=== PATIENT | male | born 1975 ===

== ENCOUNTER 2018-03-25 16:35 | Inpatient (IN) | payer MEDICAID ==
[2018-03-25] MEDS ORDERED: Sodium Chloride 0.9% 1,000 ML IV STA (17:36)
[2018-03-25] MEDS ORDERED: Morphine 4 MG/ML VIAL IVP STA (17:42)
[2018-03-25] MEDS ORDERED: Morphine 4 MG/ML VIAL ONE (18:12)
--- NOTE | 2018-03-25 18:13 | ED PDOC ---
HPI: Abdomen Time Seen by Provider: 03/25/18 16:47 Chief Complaint (Nursing): Abdominal Pain Chief Complaint (Provider): Abdominal Pain History Per: Patient History/Exam Limitations: no limitations Onset/Duration Of Symptoms: Days (10x) Current Symptoms Are (Timing): Still Present Severity: Moderate Location Of Pain/Discomfort: Other (right side and lower abdomen) Associated Symptoms: Vomiting, Diarrhea Additional Complaint(s): 42 year old male with a history of heroin abuse and hypothyroidism, recently out of assisted presents to the ED for an evaluation of right sided and lower abdominal pain that started 10x days ago. Patient reports having associated symptoms of intermittent vomiting and diarrhea. Patient was see at [facility] ED at onset of symptoms 10x days ago, where he was diagnosed with gallbladder disease and discharged 10x days ago. Patient's symptoms worsened, so he went to [facility] ED early this morning (approximately 14x hours prior to arrival), and was diagnosed with pancreatitis and admitted for treatment. Patient was unhappy with his treatment and left AMA 45x minutes prior to arrival to [facility] ED. Patient was concerned because he was not allowed to eat or drink, his pain was not adequately managed, and he was not receiving updates on treatment plan. PMD: None. Past Medical History Reviewed: Historical Data, Nursing Documentation, Vital Signs Vital Signs: Last Vital Signs Temp 96.8 F L 03/25/18 16:41 Pulse 67 03/25/18 16:41 Resp 18 03/25/18 16:41 BP 131/76 03/25/18 16:41 Pulse Ox 100 03/25/18 16:41 - Medical History PMH: Anxiety, Depression, Gall Bladder Disease, Hypothyroidism, Pancreatitis Denies: Hepatitis (treated and cured of hepatitis C in assisted) - Surgical History Surgical History: Hernia Repair (left inguinal herna surgery) - Family History Family History: States: Unknown Family Hx - Social History Current smoker - smoking cessation education provided: Yes Alcohol: None Drugs: Cocaine (occasionally) - Immunization History Hx Tetanus Toxoid Vaccination: No Hx Influenza Vaccination: No Hx Pneumococcal Vaccination: No - Home Medications Home Medications: Ambulatory Orders Medication Instructions Recorded Levothyroxine [Synthroid] 100 mcg PO DAILY #14 tab 03/16/18 - Allergies Allergies/Adverse Reactions: Allergies Allergy/AdvReac Type Severity Reaction Status Date / Time No Known Allergies Allergy Verified 03/25/18 16:41 Review of Systems ROS Statement: Except As Marked, All Systems Reviewed And Found Negative Gastrointestinal: Positive for: Vomiting, Abdominal Pain (right sided and lower), Diarrhea Physical Exam - Reviewed Nursing Documentation Reviewed: Yes Vital Signs Reviewed: Yes - Physical Exam Appears: Positive for: Non-toxic, In Acute Distress (mild painful distress). Negative for: Well (tired appearing, (+) jaundice) Head Exam: Positive for: ATRAUMATIC, NORMOCEPHALIC Skin: Positive for: Warm, Dry Eye Exam: Positive for: Other (conjunctival pale) ENT: Positive for: Other (dry mucous membranes) Neck: Positive for: Painless ROM, Supple Cardiovascular/Chest: Positive for: Regular Rate, Rhythm. Negative for: Murmur Respiratory: Positive for: Normal Breath Sounds. Negative for: Respiratory Distress Gastrointestinal/Abdominal: Positive for: Tenderness (diffuse tenderness). Negative for: Mass, Guarding, Rebound, Other ((-) younbglood's sign.) Back: Positive for: Normal Inspection. Negative for: L CVA Tenderness, R CVA Tenderness Extremity: Positive for: Normal ROM. Negative for: Deformity Lymphatic: Negative for: Adenopathy Neurologic/Psych: Positive for: Alert, Oriented (3x) - Laboratory Results Result Diagrams: 03/26/18 07:40 03/26/18 07:40 - ECG O2 Sat by Pulse Oximetry: 100 (RA) Pulse Ox Interpretation: Normal Medical Decision Making Medical Decision Makin:47 Initial impression: 42 year old male with abdominal pain. Differential diagnoses include but are not limited to pancreatitis, dehydration, sepsis, electrolyte abnormality, gastritis, cholecystitis. Initial plan: type and screen * ammonia * amylase * CMP * lactic acid * LDH * lipase * magnesium * phosphorous * udip * CBC * PT and PTT * IV NS 1,000 ml IV 1,000mls/hr * after saline bolus 1,000 ml IV 100 mls/hr * pepcid 20 mg IVP * zofran inj 4 mg IVP once * bood culture * reevaluation 19:40 Patient's labs demonstrated an elevated transaminases and hyperbilirubinemia, similar to earlier labs from [facility]. Discussed with (medical service), (gastrointestinal), and Dr.Hae Hansen (surgical services asst) for inpatient consult. Discussed with patient plan of care. Discussed course of antibiotics for cholecystitis, and continued IV fluids for dehydration. --- Scribe Attestation: Documented byHawa Weems, acting as a scribe for Kristen Love MD. Provider Scribe Attestation: All medical record entries made by the Scribe were at my direction and personally dictated by me. I have reviewed the chart and agree that the record accurately reflects my personal performance of the history, physical exam, medical decision making, and the department course for this patient. I have also personally Disposition - Clinical Impression Clinical Impression: Pancreatitis, Transaminitis, Gallstones Counseled Patient/Family Regarding: Studies Performed, Diagnosis - Disposition Disposition Time: 19:40 Condition: FAIR - Pt Status Changed To: Hospital Disposition Of: Inpatient - Admit Certification Admit to Inpatient:: After my assessment, the patient will require hospitalization for at least two midnights. This is because of the severity of symptoms shown, intensity of services needed, and/or the medical risk in this patient being treated as an outpatient. - POA Present On Arrival: None
[2018-03-25 18:16] LABS: BASO % 0.7 % (0.0-2.0); EOS # 0.1 K/uL (0.0-0.7); EOS % 2.4 % (0.0-4.0); HEMOGLOBIN 13.5 g/dL (12.0-18.0); LYMPH % 26.4 % (20.0-40.0); MEAN CELL VOLUME 93.5 fl (80.0-94.0); MEAN CORPUSCULAR HEMOGLOBIN 31.1 pg (27.0-31.0); MEAN CORPUSCULAR HGB CONC 33.2 g/dL (33.0-37.0); MEAN PLATELET VOLUME 9.2 fl (7.2-11.7); MONO # 0.3 K/uL (0.0-0.8); MONO % 7.7 % (0.0-10.0); NEUT # 2.3 K/uL (1.8-7.0); NEUT % 62.8 % (50.0-75.0); NRBC % 0.2 % (0.0-0.0); RBC 4.36 Mil/uL (4.40-5.90); RED CELL DISTRIBUTION WIDTH 16.6 % (11.5-14.5); WHITE BLOOD COUNT 3.6 K/uL (4.8-10.8)
[2018-03-25 18:23] LABS: INR 1.3
[2018-03-25 18:26] LABS: PARTIAL THROMBOPLASTIN TIME 45.7 Seconds (25.6-37.1)
[2018-03-25 18:28] LABS: ALB/GLOB RATIO 0.6 (1.0-2.1); ALBUMIN 3.3 g/dL (3.5-5.0); ALT/SGPT 399 U/L (21-72); AMYLASE 127 U/L (30-110); AST/SGOT 589 U/L (17-59); BLOOD UREA NITROGEN 8 mg/dl (9-20); CALCIUM 8.2 mg/dL (8.4-10.2); GFR NON-AFRICAN AMERICAN > 60; LIPASE 165 U/L (23-300)
[2018-03-25] MEDS ORDERED: Ciprofloxacin 400mg/200ml D5W 400 MG/200 ML BAG IV STA (19:22)
[2018-03-25] MEDS ORDERED: Ciprofloxacin 400mg/200ml D5W 400 MG/200 ML BAG IVPB ONE (19:44)
[2018-03-25] MEDS: Morphine 4 MG/ML VIAL IVP PRN (22:59)
--- NOTE | 2018-03-26 02:32 | CP.PCM.CON ---
History of Present Illness - History of Present Illness History of Present Illness: Surgery Pt is a 42 y/o M with PMH of heroin and cocaine abuse, hypothyroidism who presented to the ED with 10 days of RUQ/epigastric pain, nausea, and vomiting. Surgery is consulted to evaluate for cholecystitis. Patient states that he originally came in to the ED for the pain and got a CT of the abdomen which showed likely cirrhosis of the liver, gallstone, possible enteritis. Patient was advised to stay for possible cholecystectomy but left AMA. Pt was at [facility] and left AMA earlier today then came to [place]. Patient states pain hasn't improved and has now become diffuse. This AM he had nausea and vomiting of brown food contents, no blood. Last time he had IV heroin was this AM. Pt denies etOH use. Patient denies any fevers, states he also had diarrhea this AM. Denies association between eating and the pain. patient denies hematochezia, melena, dysuria, back pain, or any other symptoms. Patient states this the first time having these sxs. US shows 1.5cm gallstone, 5mm thick GBwall, CBD 3mm, and cirrhotic liver. CT shows mild acute pancreatitis, enteritis and thicken GB wall and pericolecystic fluids PMH: heroin and cocaine abuse, hypothyroidism PSH: Open left inguinal hernia repair ALL: nkda Social: smokes 1/2 PPD for 29 years, denies ETOH use, admits current IV heroin abuse, prior cocaine abuse Review of Systems - Review of Systems Review of Systems: See HPI Past Patient History - Infectious Disease Hx of Infectious Diseases: None - Past Social History Alcohol: None Drugs: Cocaine (occasionally) - ENDOCRINE/METABOLIC Hx Hypothyroidism: Yes - GASTROINTESTINAL Hx Gall Bladder Disease: Yes Hx Pancreatitis: Yes - PSYCHIATRIC Hx Anxiety: Yes Hx Depression: Yes - SURGICAL HISTORY Hx Herniorrhaphy: Yes Other/Comment: rt. eye sx. - ANESTHESIA Hx Anesthesia: No Meds Allergies/Adverse Reactions: Allergies Allergy/AdvReac Type Severity Reaction Status Date / Time No Known Allergies Allergy Verified 03/25/18 16:41 - Medications Medications: Current Medications Dextrose/Sodium Chloride (Dextrose 5%-0.9% Ns 500 Ml) 1,000 mls @ 100 mls/hr IV .Q10H NIKOLAY Morphine Sulfate (Morphine) 4 mg IVP Q4 PRN PRN Reason: Pain, severe (8-10) Last Admin: 03/25/18 22:59 Dose: 4 mg Ondansetron HCl (Zofran Inj) 4 mg IVP Q4 PRN PRN Reason: Nausea/Vomiting Last Admin: 03/25/18 23:00 Dose: 4 mg Pantoprazole Sodium (Protonix Inj) 40 mg IVP DAILY NIKOLAY Physical Exam - Constitutional Appears: Non-toxic - Head Exam Head Exam: ATRAUMATIC, NORMAL INSPECTION, NORMOCEPHALIC - Eye Exam Eye Exam: EOMI, Normal appearance, PERRL Pupil Exam: NORMAL ACCOMODATION, PERRL - ENT Exam ENT Exam: Mucous Membranes Moist, Normal Exam - Neck Exam Neck exam: Positive for: Normal Inspection - Respiratory Exam Respiratory Exam: NORMAL BREATHING PATTERN - Cardiovascular Exam Cardiovascular Exam: REGULAR RHYTHM - GI/Abdominal Exam GI & Abdominal Exam: Distended, Guarding, Soft, Tenderness. absent: Firm, Hernia, Mass, Rebound, Rigid Additional comments: diffuse TTP - Exam Exam: NORMAL INSPECTION - Extremities Exam Extremities exam: Positive for: full ROM, normal inspection - Back Exam Back exam: NORMAL INSPECTION - Neurological Exam Neurological exam: Alert, CN II-XII Intact, Normal Gait, Oriented x3, Reflexes Normal - Psychiatric Exam Psychiatric exam: Normal Mood - Skin Skin Exam: Dry, Intact, Normal Color, Warm Results - Vital Signs Recent Vital Signs: Last Vital Signs Temp 98.2 F 03/26/18 00:18 Pulse 60 03/26/18 00:18 Resp 18 03/26/18 00:18 BP 122/68 03/26/18 00:18 Pulse Ox 100 03/26/18 00:18 - Labs Result Diagrams: 03/25/18 18:00 03/25/18 18:00 Labs: Laboratory Results - last 24 hr 03/25/18 03/25/18 03/25/18 18:00 18:00 18:00 WBC 3.6 L RBC 4.36 L Hgb 13.5 Hct 40.7 MCV 93.5 MCH 31.1 H MCHC 33.2 RDW 16.6 H Plt Count 96 L MPV 9.2 Neut % (Auto) 62.8 Lymph % (Auto) 26.4 [place] % (Auto) 7.7 Eos % (Auto) 2.4 Baso % (Auto) 0.7 Neut # (Auto) 2.3 Lymph # (Auto) 1.0 [place] # (Auto) 0.3 Eos # (Auto) 0.1 Baso # (Auto) 0.0 PT 15.0 H INR 1.3 APTT 45.7 H Sodium 138 Potassium 3.9 Chloride 106 Carbon Dioxide 25 Anion Gap 11 BUN 8 L Creatinine 0.9 Est GFR ( Amer) > 60 Est GFR (Non-Af Amer) > 60 Random Glucose 105 Lactic Acid Calcium 8.2 L Phosphorus 3.3 Magnesium 1.5 L Total Bilirubin 3.2 H AST 589 H ALT 399 H Alkaline Phosphatase 210 H Ammonia Lactate Dehydrogenase 866 H Total Protein 8.7 H Albumin 3.3 L Globulin 5.4 H Albumin/Globulin Ratio 0.6 L Amylase 127 H Lipase 165 Blood Type Blood Type Confirm Antibody Screen BBK History Checked 03/25/18 03/25/18 03/25/18 18:00 18:11 18:26 WBC RBC Hgb Hct MCV MCH MCHC RDW Plt Count MPV Neut % (Auto) Lymph % (Auto) [place] % (Auto) Eos % (Auto) Baso % (Auto) Neut # (Auto) Lymph # (Auto) [place] # (Auto) Eos # (Auto) Baso # (Auto) PT INR APTT Sodium Potassium Chloride Carbon Dioxide Anion Gap BUN Creatinine Est GFR ( Amer) Est GFR (Non-Af Amer) Random Glucose Lactic Acid 1.2 Calcium Phosphorus Magnesium Total Bilirubin AST ALT Alkaline Phosphatase Ammonia 36 Lactate Dehydrogenase Total Protein Albumin Globulin Albumin/Globulin Ratio Amylase Lipase Blood Type O POSITIVE Blood Type Confirm Antibody Screen Negative BBK History Checked No verified bt 03/25/18 19:03 WBC RBC Hgb Hct MCV MCH MCHC RDW Plt Count MPV Neut % (Auto) Lymph % (Auto) [place] % (Auto) Eos % (Auto) Baso % (Auto) Neut # (Auto) Lymph # (Auto) [place] # (Auto) Eos # (Auto) Baso # (Auto) PT INR APTT Sodium Potassium Chloride Carbon Dioxide Anion Gap BUN Creatinine Est GFR ( Amer) Est GFR (Non-Af Amer) Random Glucose Lactic Acid Calcium Phosphorus Magnesium Total Bilirubin AST ALT Alkaline Phosphatase Ammonia Lactate Dehydrogenase Total Protein Albumin Globulin Albumin/Globulin Ratio Amylase Lipase Blood Type Blood Type Confirm O POSITIVE Antibody Screen BBK History Checked Assessment & Plan - Assessment and Plan (Free Text) Assessment: cholecystit vs gallstone pancreatitis v cirrhosis Elevated LFT -f/u MRCP -NPO -IVF -ABX -Pain. nausea control -f/u blood cx -Trend LFT -GI on board -DVT/ GI ppx Will DW Dr. Loomis
[2018-03-26] MEDS: Morphine 4 MG/ML VIAL IVP PRN ×5 (05:13→21:25)
[2018-03-26 07:59] LABS: BASO % 1.3 % (0.0-2.0); EOS # 0.1 K/uL (0.0-0.7); EOS % 3.6 % (0.0-4.0); HEMOGLOBIN 13.3 g/dL (12.0-18.0); LYMPH # 1.1 K/uL (1.0-4.3); LYMPH % 32.3 % (20.0-40.0); MEAN CORPUSCULAR HEMOGLOBIN 31.1 pg (27.0-31.0); MEAN CORPUSCULAR HGB CONC 33.8 g/dL (33.0-37.0); MEAN PLATELET VOLUME 8.8 fl (7.2-11.7); MONO # 0.3 K/uL (0.0-0.8); MONO % 9.6 % (0.0-10.0); NEUT # 1.8 K/uL (1.8-7.0); NEUT % 53.2 % (50.0-75.0); NRBC % 0.2 % (0.0-0.0); RBC 4.27 Mil/uL (4.40-5.90); RED CELL DISTRIBUTION WIDTH 15.8 % (11.5-14.5); WHITE BLOOD COUNT 3.4 K/uL (4.8-10.8)
[2018-03-26] MEDS ORDERED: Gadodiamide 287 MG/ML VIAL (15ML) IV ONE (08:02)
[2018-03-26] MEDS ORDERED: Sodium Chloride 0.9% 50 ML IV ONE (08:02)
[2018-03-26 08:09] LABS: ALB/GLOB RATIO 0.6 (1.0-2.1); ALBUMIN 2.9 g/dL (3.5-5.0); ALT/SGPT 342 U/L (21-72); AST/SGOT 510 U/L (17-59); BLOOD UREA NITROGEN 7 mg/dl (9-20); CALCIUM 7.7 mg/dL (8.4-10.2); GFR NON-AFRICAN AMERICAN > 60
--- NOTE | 2018-03-26 12:06 | CP.PCM.CON ---
History of Present Illness - History of Present Illness History of Present Illness: General Surgery Agree with resident's consult. Pt seen and examined this AM. Additionally he states he was recently incarcerated for 6 years and was released 01/2018. He has a hx of Hep C (treated while in correction in 2014), he has been using IV drugs after treatment. Also reports a hx of a stomach ulcer. Pt states he has had similar intermittent abdominal pains over the past year but over the last 10 days became too severe prompting his visit. He states he was at [facility] this AM but left because he didn't like how he was being treated. He reports feeling better now but still has RUQ and epigastric pain. Pt has been NPO. (-) N/V. Afebrile. Labs and vitals noted. LFTs and bili elevated MRCP not reported yet PE Gen: Pt laying in bed in NAD Skin: warm and dry Cardio: s1s2 RRR Lungs: CTA bilaterally Abd: Soft, (+) epigastric and RUQ tenderness, (-) Aleman's Extr: (-) calf tenderness bilaterally A/P Cholelithiasis, elevated LFTs, Pancreatitis Keep NPO IVF Pain meds prn as ordered Continue abx GI on board No surgical intervention at this time Past Patient History - Infectious Disease Hx of Infectious Diseases: None - Past Medical History & Family History Past Medical History?: Yes - Past Social History Smoking Status: Light Smoker < 10 Cigarettes Daily - CARDIAC Hx Cardiac Disorders: No - PULMONARY Hx Respiratory Disorders: No - NEUROLOGICAL Hx Neurological Disorder: No - HEENT Hx HEENT Problems: No - RENAL Hx Chronic Kidney Disease: No - ENDOCRINE/METABOLIC Hx Hypothyroidism: Yes - HEMATOLOGICAL/ONCOLOGICAL Hx Blood Disorders: No Hx AIDS: No Hx Human Immunodeficiency Virus (HIV): No - INTEGUMENTARY Hx Dermatological Problems: No - MUSCULOSKELETAL/RHEUMATOLOGICAL Hx Musculoskeletal Disorders: No Hx Falls: No - GASTROINTESTINAL Hx Gall Bladder Disease: Yes Hx Pancreatitis: Yes - GENITOURINARY/GYNECOLOGICAL Hx Genitourinary Disorders: No - PSYCHIATRIC Hx Anxiety: Yes Hx Depression: Yes Hx Substance Use: Yes (Cocaine and heroin use) - SURGICAL HISTORY Hx Herniorrhaphy: Yes Other/Comment: rt. eye sx. - ANESTHESIA Hx Anesthesia: No Hx Anesthesia Reactions: No Hx Malignant Hyperthermia: No Has any member of the family had a problem w/ anesthesia?: No Meds Allergies/Adverse Reactions: Allergies Allergy/AdvReac Type Severity Reaction Status Date / Time No Known Allergies Allergy Verified 03/25/18 16:41 - Medications Medications: Current Medications Dextrose/Sodium Chloride (Dextrose 5%-0.9% Ns 500 Ml) 1,000 mls @ 100 mls/hr IV .Q10H NIKOLAY Last Admin: 03/26/18 01:14 Dose: 100 mls/hr Ciprofloxacin (Cipro 400mg/200ml Dsw) 400 mg in 200 mls @ 200 mls/hr IVPB Q12 NIKOLAY; Protocol Morphine Sulfate (Morphine) 4 mg IVP Q4 PRN PRN Reason: Pain, severe (8-10) Last Admin: 03/26/18 09:52 Dose: 4 mg Ondansetron HCl (Zofran Inj) 4 mg IVP Q4 PRN PRN Reason: Nausea/Vomiting Last Admin: 03/25/18 23:00 Dose: 4 mg Pantoprazole Sodium (Protonix Inj) 40 mg IVP DAILY NIKOLAY Last Admin: 03/26/18 09:53 Dose: 40 mg Results - Vital Signs Recent Vital Signs: Last Vital Signs Temp 97.9 F 03/26/18 08:03 Pulse 58 L 03/26/18 08:03 Resp 19 03/26/18 08:03 BP 124/72 03/26/18 08:03 Pulse Ox 97 03/26/18 08:03 - Labs Result Diagrams: 03/26/18 07:40 03/26/18 07:40 Labs: Laboratory Results - last 24 hr 03/25/18 03/25/18 03/25/18 18:00 18:00 18:00 WBC 3.6 L RBC 4.36 L Hgb 13.5 Hct 40.7 MCV 93.5 MCH 31.1 H MCHC 33.2 RDW 16.6 H Plt Count 96 L MPV 9.2 Neut % (Auto) 62.8 Lymph % (Auto) 26.4 [place] % (Auto) 7.7 Eos % (Auto) 2.4 Baso % (Auto) 0.7 Neut # (Auto) 2.3 Lymph # (Auto) 1.0 [place] # (Auto) 0.3 Eos # (Auto) 0.1 Baso # (Auto) 0.0 PT 15.0 H INR 1.3 APTT 45.7 H Sodium 138 Potassium 3.9 Chloride 106 Carbon Dioxide 25 Anion Gap 11 BUN 8 L Creatinine 0.9 Est GFR ( Amer) > 60 Est GFR (Non-Af Amer) > 60 Random Glucose 105 Lactic Acid Calcium 8.2 L Phosphorus 3.3 Magnesium 1.5 L Total Bilirubin 3.2 H AST 589 H ALT 399 H Alkaline Phosphatase 210 H Ammonia Lactate Dehydrogenase 866 H Total Protein 8.7 H Albumin 3.3 L Globulin 5.4 H Albumin/Globulin Ratio 0.6 L Amylase 127 H Lipase 165 Blood Type Blood Type Confirm Antibody Screen BBK History Checked 03/25/18 03/25/18 03/25/18 18:00 18:11 18:26 WBC RBC Hgb Hct MCV MCH MCHC RDW Plt Count MPV Neut % (Auto) Lymph % (Auto) [place] % (Auto) Eos % (Auto) Baso % (Auto) Neut # (Auto) Lymph # (Auto) [place] # (Auto) Eos # (Auto) Baso # (Auto) PT INR APTT Sodium Potassium Chloride Carbon Dioxide Anion Gap BUN Creatinine Est GFR ( Amer) Est GFR (Non-Af Amer) Random Glucose Lactic Acid 1.2 Calcium Phosphorus Magnesium Total Bilirubin AST ALT Alkaline Phosphatase Ammonia 36 Lactate Dehydrogenase Total Protein Albumin Globulin Albumin/Globulin Ratio Amylase Lipase Blood Type O POSITIVE Blood Type Confirm Antibody Screen Negative BBK History Checked No verified bt 03/25/18 03/26/18 03/26/18 19:03 07:40 07:40 WBC 3.4 L RBC 4.27 L Hgb 13.3 Hct 39.3 MCV 92.0 MCH 31.1 H MCHC 33.8 RDW 15.8 H Plt Count 92 L MPV 8.8 Neut % (Auto) 53.2 Lymph % (Auto) 32.3 [place] % (Auto) 9.6 Eos % (Auto) 3.6 Baso % (Auto) 1.3 Neut # (Auto) 1.8 Lymph # (Auto) 1.1 [place] # (Auto) 0.3 Eos # (Auto) 0.1 Baso # (Auto) 0.0 PT INR APTT Sodium 135 Potassium 3.6 Chloride 107 Carbon Dioxide 24 Anion Gap 8 L BUN 7 L Creatinine 0.7 L Est GFR ( Amer) > 60 Est GFR (Non-Af Amer) > 60 Random Glucose 96 Lactic Acid Calcium 7.7 L Phosphorus 2.9 Magnesium 1.4 L Total Bilirubin 3.3 H AST 510 H ALT 342 H Alkaline Phosphatase 146 H D Ammonia Lactate Dehydrogenase Total Protein 7.8 Albumin 2.9 L Globulin 5.0 H Albumin/Globulin Ratio 0.6 L Amylase Lipase Blood Type Blood Type Confirm O POSITIVE Antibody Screen BBK History Checked
[2018-03-26] MEDS: Ciprofloxacin 400mg/200ml D5W 400 MG/200 ML BAG IVPB SCH ×2 (14:03→20:42)
--- NOTE | 2018-03-26 19:18 | HP ---
CHIEF COMPLAINT: Abdominal pain. HISTORY OF PRESENT ILLNESS: This is a 42-year-old male who was recently out of incarceration, was having abdominal pain and went to [facility] and had initial management and diagnosis of pancreatitis and was advised admission, but the patient signed against medical advice and came with similar complaint to this hospital after signing AMA and was evaluated and admitted for further management. REVIEW OF SYSTEMS: Positive for abdominal pain for 10 days, associated with diarrhea and vomiting. Review of system otherwise is negative for headaches, dizziness, syncope, loss of consciousness, chest pain, shortness of breath, any new joint or extremity pain. Review of systems of all other organ systems are unremarkable. PAST MEDICAL HISTORY: Remarkable for anxiety, depression, hypothyroidism, history of pancreatitis, and gallbladder disease in the past. PAST SURGICAL HISTORY: Remarkable for left inguinal hernia. PERSONAL HISTORY: The patient is currently nonsmoker, nondrinker. No substance abuse. MEDICATIONS: The patient is on Synthroid 100 mcg per day. ALLERGIES: THE PATIENT IS NOT ALLERGIC TO ANY MEDICATION. FAMILY HISTORY: Noncontributory. The patient also had history of treated hepatitis C in the past. PHYSICAL EXAMINATION: GENERAL: Well-developed, well-nourished 42-year-old male, in no acute distress. VITAL SIGNS: Temperature 97.9, pulse 58, respirations 19, blood pressure 124/72, and O2 saturation 97%. HEENT: Pupils reacting to light. No JVD. No thyromegaly. No lymphadenopathy. No nystagmus. Normocephalic, atraumatic skull. HEART: S1 and S2 normal and regular. No significant murmur, gallop, or rub is heard. LUNGS: Show good bilateral air exchange. No rales or rhonchi. ABDOMEN: Soft, and nontender. No sign of acute abdomen. No guarding. No rigidity. No rebound. The patient has generalized obesity. Bowel sounds are plus and normal. EXTREMITIES: No edema. No calf swelling. No tenderness. No acute ischemia. 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 DIAGNOSTIC DATA: Available diagnostic data reviewed. WBC 3.4, hemoglobin 13.3, hematocrit 39.3, platelets 92. Sodium 135, potassium 3.6, chloride 107, bicarb 24, BUN 7, creatinine 0.7. AST 510, ALT was 342, alkaline phosphatase was 146, LDH level was 866. Surgical consult was noted and appreciated. ADMITTING IMPRESSION: Abdominal pain, pancreatitis, hypothyroidism, anxiety and depression. PLAN: As ordered. Case and plan discussed with the patient. Nadir Ivey MD
[2018-03-26] MEDS ORDERED: Ciprofloxacin 400mg/200ml D5W 400 MG/200 ML BAG IVPB SCH (21:00)
[2018-03-27] MEDS: Morphine 4 MG/ML VIAL IVP PRN ×6 (01:08→20:55)
[2018-03-27 06:56] LABS: HEMOGLOBIN 13.3 g/dL (12.0-18.0); MEAN CELL VOLUME 92.3 fl (80.0-94.0); MEAN CORPUSCULAR HEMOGLOBIN 31.1 pg (27.0-31.0); MEAN CORPUSCULAR HGB CONC 33.7 g/dL (33.0-37.0); RBC 4.27 Mil/uL (4.40-5.90); WHITE BLOOD COUNT 3.1 K/uL (4.8-10.8)
[2018-03-27 07:14] LABS: ALB/GLOB RATIO 0.5 (1.0-2.1); ALBUMIN 2.7 g/dL (3.5-5.0); ALT/SGPT 323 U/L (21-72); AMYLASE 93 U/L (30-110); AST/SGOT 514 U/L (17-59); BLOOD UREA NITROGEN 8 mg/dl (9-20); CALCIUM 7.7 mg/dL (8.4-10.2); GFR NON-AFRICAN AMERICAN > 60; LIPASE 99 U/L (23-300)
--- NOTE | 2018-03-27 09:23 | CP.PCM.PN ---
Subjective - Date & Time of Evaluation Date of Evaluation: 03/27/18 Time of Evaluation: 07:30 - Subjective Subjective: Surgery Progress note. Dr. Loomis Pt seen and examined at bedside this morning. Abdominal pain improving. No nausea, or vomiting. No fevers or chills. No CP or shortness of breath. No new complaints. Objective - Vital Signs/Intake and Output Vital Signs (last 24 hours): Temp Pulse Resp BP Pulse Ox 98.0 F 100 H 20 121/65 97 03/27/18 08:55 03/27/18 08:55 03/27/18 08:55 03/27/18 08:55 03/27/18 08:55 - Medications Medications: Current Medications Dextrose/Sodium Chloride (Dextrose 5%-0.9% Ns 500 Ml) 1,000 mls @ 100 mls/hr IV .Q10H NIKOLAY Last Admin: 03/27/18 00:00 Dose: 100 mls/hr Ciprofloxacin (Cipro 400mg/200ml Dsw) 400 mg in 200 mls @ 200 mls/hr IVPB Q12 NIKOLAY; Protocol Last Admin: 03/26/18 20:42 Dose: 200 mls/hr Morphine Sulfate (Morphine) 4 mg IVP Q4 PRN PRN Reason: Pain, severe (8-10) Last Admin: 03/27/18 05:26 Dose: 4 mg Ondansetron HCl (Zofran Inj) 4 mg IVP Q4 PRN PRN Reason: Nausea/Vomiting Last Admin: 03/25/18 23:00 Dose: 4 mg Pantoprazole Sodium (Protonix Inj) 40 mg IVP DAILY NIKOLAY Last Admin: 03/26/18 09:53 Dose: 40 mg - Labs Labs: 03/27/18 05:30 03/27/18 05:30 PT 15.0 Seconds (9.8-13.1) H 03/25/18 18:00 INR 1.3 03/25/18 18:00 APTT 45.7 Seconds (25.6-37.1) H 03/25/18 18:00 - Constitutional Appears: Well, Non-toxic, No Acute Distress - Head Exam Head Exam: ATRAUMATIC, NORMAL INSPECTION, NORMOCEPHALIC - Eye Exam Eye Exam: EOMI, Scleral icterus - Respiratory Exam Respiratory Exam: NORMAL BREATHING PATTERN. absent: Accessory Muscle Use, Respiratory Distress - Cardiovascular Exam Cardiovascular Exam: absent: JVD - GI/Abdominal Exam GI & Abdominal Exam: Soft, Tenderness (mild epigastric tenderness). absent: Distended, Firm, Guarding, Rigid - Extremities Exam Extremities Exam: Normal Inspection - Neurological Exam Neurological Exam: Alert, Awake, Oriented x3 - Skin Skin Exam: Dry, Intact, Warm Assessment and Plan - Assessment and Plan (Free Text) Assessment: 42yo M with gallstone pancreatitis. Plan: - NPO - IVF - Pain management - F/u GI recs - Continue abx for now for poss cholecystitis - No plans for any acute surgical intervention at this time Further recs as per Dr. Vladislav Castaneda PGY2 surgery
[2018-03-27] MEDS: Ciprofloxacin 400mg/200ml D5W 400 MG/200 ML BAG IVPB SCH ×2 (09:25→20:57)
[2018-03-27 10:18] VITALS: BMI 33.2
--- NOTE | 2018-03-27 10:25 | CP.PCM.CON ---
History of Present Illness - History of Present Illness History of Present Illness: 42 yo with admitted past h/o alcohol use though deneis recent use admitted with lower abdominal pain and CT evidence of pancreatitis. States he was trated for Hep C and was cured. Recently released from alf and has been eating large amounts of fatty food. has hypothyroidism but stopped Synthroid a month ago.. Review of Systems - Constitutional Constitutional: absent: Chills - EENT Eyes: absent: Blurred Vision Ears: absent: Decreased Hearing Nose/Mouth/Throat: absent: Epistaxis - Cardiovascular Cardiovascular: absent: Chest Pain - Respiratory Respiratory: absent: Cough - Gastrointestinal Gastrointestinal: As Per HPI - Genitourinary Genitourinary: absent: Change in Urinary Stream Past Patient History - Infectious Disease Hx of Infectious Diseases: None - Past Medical History & Family History Past Medical History?: Yes - Past Social History Alcohol: None Drugs: Cocaine (occasionally) - CARDIAC Hx Cardiac Disorders: No - PULMONARY Hx Respiratory Disorders: No - NEUROLOGICAL Hx Neurological Disorder: No - HEENT Hx HEENT Problems: No - RENAL Hx Chronic Kidney Disease: No - ENDOCRINE/METABOLIC Hx Hypothyroidism: Yes - HEMATOLOGICAL/ONCOLOGICAL Hx Blood Disorders: No Hx AIDS: No Hx Human Immunodeficiency Virus (HIV): No - INTEGUMENTARY Hx Dermatological Problems: No - MUSCULOSKELETAL/RHEUMATOLOGICAL Hx Musculoskeletal Disorders: No Hx Falls: No - GASTROINTESTINAL Hx Gall Bladder Disease: Yes Hx Pancreatitis: Yes - GENITOURINARY/GYNECOLOGICAL Hx Genitourinary Disorders: No - PSYCHIATRIC Hx Anxiety: Yes Hx Depression: Yes - SURGICAL HISTORY Hx Herniorrhaphy: Yes Other/Comment: rt. eye sx. - ANESTHESIA Hx Anesthesia: No Hx Anesthesia Reactions: No Hx Malignant Hyperthermia: No Has any member of the family had a problem w/ anesthesia?: No Meds Allergies/Adverse Reactions: Allergies Allergy/AdvReac Type Severity Reaction Status Date / Time No Known Allergies Allergy Verified 03/25/18 16:41 - Medications Medications: Current Medications Dextrose/Sodium Chloride (Dextrose 5%-0.9% Ns 500 Ml) 1,000 mls @ 100 mls/hr IV .Q10H [facility] Last Admin: 03/27/18 09:27 Dose: Not Given Ciprofloxacin (Cipro 400mg/200ml Dsw) 400 mg in 200 mls @ 200 mls/hr IVPB Q12 [facility]; Protocol Last Admin: 03/27/18 09:25 Dose: 200 mls/hr Morphine Sulfate (Morphine) 4 mg IVP Q4 PRN PRN Reason: Pain, severe (8-10) Last Admin: 03/27/18 09:24 Dose: 4 mg Ondansetron HCl (Zofran Inj) 4 mg IVP Q4 PRN PRN Reason: Nausea/Vomiting Last Admin: 03/25/18 23:00 Dose: 4 mg Pantoprazole Sodium (Protonix Inj) 40 mg IVP DAILY [facility] Last Admin: 03/27/18 09:25 Dose: 40 mg Physical Exam - Head Exam Head Exam: ATRAUMATIC - Eye Exam Eye Exam: EOMI - ENT Exam ENT Exam: Mucous Membranes Moist - Respiratory Exam Respiratory Exam: Clear to Auscultation Bilateral - Cardiovascular Exam Cardiovascular Exam: REGULAR RHYTHM, +S1, +S2 - GI/Abdominal Exam GI & Abdominal Exam: Normal Bowel Sounds, Soft. absent: Tenderness - Rectal Exam Rectal Exam: Deferred - Back Exam Back exam: NORMAL INSPECTION - Neurological Exam Neurological exam: Alert, Oriented x3 Results - Vital Signs Recent Vital Signs: Last Vital Signs Temp 98.0 F 03/27/18 08:55 Pulse 100 H 03/27/18 08:55 Resp 20 03/27/18 08:55 BP 121/65 03/27/18 08:55 Pulse Ox 97 03/27/18 08:55 - Labs Result Diagrams: 03/27/18 05:30 03/27/18 05:30 Labs: Laboratory Results - last 24 hr 03/27/18 03/27/18 05:30 05:30 WBC 3.1 L RBC 4.27 L Hgb 13.3 Hct 39.4 MCV 92.3 MCH 31.1 H MCHC 33.7 RDW 16.0 H Plt Count 94 L Sodium 139 Potassium 3.4 L Chloride 107 Carbon Dioxide 24 Anion Gap 11 BUN 8 L Creatinine 0.7 L Est GFR ( Amer) > 60 Est GFR (Non-Af Amer) > 60 Random Glucose 97 Calcium 7.7 L Phosphorus 3.0 Magnesium 1.5 L Total Bilirubin 3.1 H AST 514 H ALT 323 H Alkaline Phosphatase 120 Total Protein 7.6 Albumin 2.7 L Globulin 4.9 H Albumin/Globulin Ratio 0.5 L Amylase 93 Lipase 99 TSH 3rd Generation 170.00 H Assessment & Plan (1) Pancreatitis Assessment and Plan: Improing clinically. Advanced to low fat diet. Status: Acute (2) Transaminitis Assessment and Plan: Etiology unclear. May be partially related to hypothyroidism. Will check hepatitis profile Status: Acute
[2018-03-27] MEDS ORDERED: Potassium Chloride 20 mEq ER Tab PO ONE (11:07)
--- NOTE | 2018-03-27 14:43 | CP.PCM.PN ---
Subjective - Date & Time of Evaluation Date of Evaluation: 03/27/18 Time of Evaluation: 14:38 - Subjective Subjective: General Surgery Pt seen and examined this afternoon. He denies having abdominal pain. Afebile. (-) N/V. Pt reports tolerating low fat diet. Labs and vitals noted. T bili remains elevated as well as other LFTs. Hep panel pending. PE Gen: Pt laying in bed in NAD. Obese Skin: warm and dry Cardio: s1s2 RRR Abd: Soft, NTND Extr: (-) calf tenderness bilaterally A/P Abdominal pain, Elevated LFTs, Cholelithiasis,Pancreatitis F/U GI recs Continue diet at this time No surgical intervention at this time secondary to transaminitis, portal hypertension and cirrhosis. Objective - Vital Signs/Intake and Output Vital Signs (last 24 hours): Temp Pulse Resp BP Pulse Ox 98.0 F 100 H 20 121/65 97 03/27/18 08:55 03/27/18 08:55 03/27/18 08:55 03/27/18 08:55 03/27/18 08:55 - Medications Medications: Current Medications Dextrose/Sodium Chloride (Dextrose 5%-0.9% Ns 500 Ml) 1,000 mls @ 100 mls/hr IV .Q10H [facility] Last Admin: 03/27/18 09:27 Dose: Not Given Ciprofloxacin (Cipro 400mg/200ml Dsw) 400 mg in 200 mls @ 200 mls/hr IVPB Q12 [facility]; Protocol Last Admin: 03/27/18 09:25 Dose: 200 mls/hr Levothyroxine Sodium (Synthroid) 25 mcg PO DAILY@0630 [facility] Morphine Sulfate (Morphine) 4 mg IVP Q4 PRN PRN Reason: Pain, severe (8-10) Last Admin: 03/27/18 13:20 Dose: 4 mg Ondansetron HCl (Zofran Inj) 4 mg IVP Q4 PRN PRN Reason: Nausea/Vomiting Last Admin: 03/25/18 23:00 Dose: 4 mg Pantoprazole Sodium (Protonix Inj) 40 mg IVP DAILY [facility] Last Admin: 03/27/18 09:25 Dose: 40 mg - Labs Labs: 03/27/18 05:30 03/27/18 05:30 PT 15.0 Seconds (9.8-13.1) H 03/25/18 18:00 INR 1.3 03/25/18 18:00 APTT 45.7 Seconds (25.6-37.1) H 03/25/18 18:00
[2018-03-27 16:20] VITALS: RESP 18
--- NOTE | 2018-03-27 16:23 | MRI ---
MRI abdomen without/with IV contrast MRCP Indication: T bili 3, rule out choledocholithiasis Technique: Multiplanar, multi sequence magnetic resonance images of the abdomen were obtained without and with the administration of intravenous gadolinium using a multi phase abdomen protocol. Rotating maximum intensity projection images of the biliary system were generated. A total of 1596 images submitted for review Comparison: CT of the abdomen and pelvis with contrast performed 03/25/18 Findings: Nodular hepatic contour. Trace perihepatic ascites. Numerous punctate arterially enhancing foci throughout the liver measuring up to approximately 6 mm (for example: Images 18, 44, 50, 57, 59). These foci appear isointense to liver on subsequent sequences. Pericholecystic edema/gallbladder-wall thickening. The gallbladder appears distended. Probable tiny gallstones. There is no intrahepatic biliary ductal dilatation. The common bile duct is not dilated. The pancreatic duct appears within normal limits of caliber. No filling defects are seen in the common bile duct or pancreatic duct. Splenomegaly. Trace perisplenic ascites. Mild pancreatic atrophy. Peripancreatic inflammatory changes consistent with mild pancreatitis. The adrenal glands appear unremarkable. The kidneys enhance symmetrically. No evidence of obstructing calculus or hydronephrosis. Limited views of the inferior thorax appear unremarkable. Impression: Nodular hepatic contour consistent with cirrhosis. Numerous punctate arterially enhancing foci are evident throughout the liver measuring up to approximately 6 mm. These foci appear isointense to liver on subsequent sequences. In the setting of cirrhosis, hepatocellular carcinoma cannot be excluded. Recommend three-month dedicated MRI or CT liver follow-up. Splenomegaly. Trace perisplenic ascites. Pancreatic atrophy. Peripancreatic inflammatory changes consistent with pancreatitis. Pericholecystic edema/gallbladder-wall thickening. Cholelithiasis. Gallbladder distension. Constellation of findings appear consistent with acute cholecystitis. Correlate clinically. Preliminary impression was provided by [employer].
[2018-03-28] MEDS: Morphine 4 MG/ML VIAL IVP PRN ×4 (01:08→13:21)
[2018-03-28 03:34] VITALS: O2SAT 95
[2018-03-28 06:17] LABS: EOS # 0.1 K/uL (0.0-0.7); EOS % 3.6 % (0.0-4.0); HEMOGLOBIN 13.1 g/dL (12.0-18.0); LYMPH # 1.1 K/uL (1.0-4.3); LYMPH % 31.7 % (20.0-40.0); MEAN CELL VOLUME 92.8 fl (80.0-94.0); MEAN CORPUSCULAR HEMOGLOBIN 31.3 pg (27.0-31.0); MEAN CORPUSCULAR HGB CONC 33.8 g/dL (33.0-37.0); MEAN PLATELET VOLUME 9.4 fl (7.2-11.7); MONO # 0.4 K/uL (0.0-0.8); MONO % 10.9 % (0.0-10.0); NEUT # 1.8 K/uL (1.8-7.0); NEUT % 52.8 % (50.0-75.0); NRBC % 0.1 % (0.0-0.0); RBC 4.18 Mil/uL (4.40-5.90); RED CELL DISTRIBUTION WIDTH 15.8 % (11.5-14.5); WHITE BLOOD COUNT 3.5 K/uL (4.8-10.8)
[2018-03-28 06:30] LABS: ALB/GLOB RATIO 0.6 (1.0-2.1); ALBUMIN 2.8 g/dL (3.5-5.0); ALT/SGPT 329 U/L (21-72); AMYLASE 138 U/L (30-110); AST/SGOT 522 U/L (17-59); BLOOD UREA NITROGEN 8 mg/dl (9-20); CALCIUM 7.7 mg/dL (8.4-10.2); GFR NON-AFRICAN AMERICAN > 60; LIPASE 277 U/L (23-300)
[2018-03-28] MEDS ORDERED: Levothyroxine 25 MCG TAB PO SCH (06:30)
[2018-03-28 08:00] VITALS: BP 123/74; PULSE 56; TEMP 98.4
--- NOTE | 2018-03-28 08:48 | PN ---
DATE: 03/27/2018 SUBJECTIVE: The patient is seen and examined. Interim events noted. The patient remains in regular medical floor. PHYSICAL EXAMINATION: ABDOMEN: The patient's abdomen is soft, nontender. No organomegaly. No fluid. Bowel sounds are plus and normal. EXTREMITIES: No edema. No calf swelling. No tenderness. No acute ischemia. CENTRAL NERVOUS SYSTEM: Exam is essentially unchanged. DIAGNOSTIC DATA: Available diagnostic data reviewed. MRCP is done, but report is pending. ASSESSMENT AND PLAN: The patient is clinically much improved. Plan as ordered. Nadir Ivey MD
--- NOTE | 2018-03-28 08:49 | CP.PCM.PN ---
Subjective - Date & Time of Evaluation Date of Evaluation: 03/28/18 Time of Evaluation: 08:49 - Subjective Subjective: Surgery Pt seen and examined. No acute events. Objective - Vital Signs/Intake and Output Vital Signs (last 24 hours): Temp Pulse Resp BP Pulse Ox 98.4 F 56 L 18 123/74 95 03/28/18 07:57 03/28/18 07:57 03/28/18 07:57 03/28/18 07:57 03/28/18 07:57 - Medications Medications: Current Medications Dextrose/Sodium Chloride (Dextrose 5%-0.9% Ns 500 Ml) 1,000 mls @ 100 mls/hr IV .Q10H [facility] Last Admin: 03/28/18 05:15 Dose: 100 mls/hr Ciprofloxacin (Cipro 400mg/200ml Dsw) 400 mg in 200 mls @ 200 mls/hr IVPB Q12 [facility]; Protocol Last Admin: 03/27/18 20:57 Dose: 200 mls/hr Levothyroxine Sodium (Synthroid) 25 mcg PO DAILY@0630 [facility] Last Admin: 03/28/18 06:11 Dose: 25 mcg Levothyroxine Sodium (Synthroid) 75 mcg PO DAILY@0630 [facility] Levothyroxine Sodium (Synthroid) 100 mcg PO DAILY@0630 [facility] Morphine Sulfate (Morphine) 4 mg IVP Q4 PRN PRN Reason: Pain, severe (8-10) Last Admin: 03/28/18 05:15 Dose: 4 mg Ondansetron HCl (Zofran Inj) 4 mg IVP Q4 PRN PRN Reason: Nausea/Vomiting Last Admin: 03/25/18 23:00 Dose: 4 mg Pantoprazole Sodium (Protonix Inj) 40 mg IVP DAILY [facility] Last Admin: 03/27/18 09:25 Dose: 40 mg - Labs Labs: 03/28/18 05:40 03/28/18 05:40 PT 15.0 Seconds (9.8-13.1) H 03/25/18 18:00 INR 1.3 03/25/18 18:00 APTT 45.7 Seconds (25.6-37.1) H 03/25/18 18:00 - Constitutional Appears: No Acute Distress - Head Exam Head Exam: ATRAUMATIC, NORMAL INSPECTION, NORMOCEPHALIC - Eye Exam Eye Exam: EOMI, Normal appearance, PERRL Pupil Exam: NORMAL ACCOMODATION, PERRL - ENT Exam ENT Exam: Mucous Membranes Moist, Normal Exam - Neck Exam Neck Exam: Full ROM, Normal Inspection. absent: Lymphadenopathy - Respiratory Exam Respiratory Exam: NORMAL BREATHING PATTERN - Cardiovascular Exam Cardiovascular Exam: REGULAR RHYTHM - GI/Abdominal Exam GI & Abdominal Exam: Soft, Normal Bowel Sounds. absent: Distended, Tenderness - Exam Exam: NORMAL INSPECTION - Extremities Exam Extremities Exam: Full ROM - Back Exam Back Exam: NORMAL INSPECTION - Neurological Exam Neurological Exam: Alert, Awake, CN II-XII Intact, Normal Gait, Oriented x3 - Psychiatric Exam Psychiatric exam: Normal Affect, Normal Mood - Skin Skin Exam: Dry, Intact, Normal Color, Warm Assessment and Plan - Assessment and Plan (Free Text) Assessment: A/P Abdominal pain, Elevated LFTs, Cholelithiasis,Pancreatitis F/U GI recs Continue diet at this time No surgical intervention at this time secondary to transaminitis, portal hype rtension and cirrhosis. Child Oneal class B: 30% perioperative mortality rate. MELD score 14 Will KEISHA Loomis
[2018-03-28] MEDS: Ciprofloxacin 400mg/200ml D5W 400 MG/200 ML BAG IVPB SCH (09:19)
--- NOTE | 2018-03-28 09:44 | CP.PCM.PN ---
Subjective - Date & Time of Evaluation Date of Evaluation: 03/28/18 Time of Evaluation: 09:42 - Subjective Subjective: General Surgery Pt seen and examined this AM. He denies having any abdominal pain. (-) N/V. Afebrile. Labs and vitals noted. No significant changes noted with T bili and LFTs. Hypo K noted. PE Gen: Pt laying in bed in NAD. Obese. Skin: warm and dry Cardio: [id number] Lungs: CTA bilaterally Abd: Soft, NTND Extr: (-) calf tenderness bilaterally A/P Abdominal Pain (resolved), elevated LFTs, Cholelithiasis, Pancreatitis (resolved ) F/U GI recs Continue diet at this time K repleted D/C ivf. No surgical intervention at this time secondary to portal HTN, cirrhosis, and transaminitis. Will treat conservatively. Continue Cipro x 7 days total (today is day 3) Objective - Vital Signs/Intake and Output Vital Signs (last 24 hours): Temp Pulse Resp BP Pulse Ox 98.4 F 56 L 18 123/74 95 03/28/18 07:57 03/28/18 07:57 03/28/18 07:57 03/28/18 07:57 03/28/18 07:57 - Medications Medications: Current Medications Dextrose/Sodium Chloride (Dextrose 5%-0.9% Ns 500 Ml) 1,000 mls @ 100 mls/hr IV .Q10H [facility] Last Admin: 03/28/18 05:15 Dose: 100 mls/hr Ciprofloxacin (Cipro 400mg/200ml Dsw) 400 mg in 200 mls @ 200 mls/hr IVPB Q12 [facility]; Protocol Last Admin: 03/28/18 09:19 Dose: 200 mls/hr Levothyroxine Sodium (Synthroid) 25 mcg PO DAILY@0630 [facility] Last Admin: 03/28/18 06:11 Dose: 25 mcg Levothyroxine Sodium (Synthroid) 75 mcg PO DAILY@0630 [facility] Levothyroxine Sodium (Synthroid) 100 mcg PO DAILY@0630 [facility] Morphine Sulfate (Morphine) 4 mg IVP Q4 PRN PRN Reason: Pain, severe (8-10) Last Admin: 03/28/18 09:20 Dose: 4 mg Ondansetron HCl (Zofran Inj) 4 mg IVP Q4 PRN PRN Reason: Nausea/Vomiting Last Admin: 03/25/18 23:00 Dose: 4 mg Pantoprazole Sodium (Protonix Inj) 40 mg IVP DAILY [facility] Last Admin: 03/28/18 09:20 Dose: 40 mg - Labs Labs: 03/28/18 05:40 03/28/18 05:40 PT 15.0 Seconds (9.8-13.1) H 03/25/18 18:00 INR 1.3 03/25/18 18:00 APTT 45.7 Seconds (25.6-37.1) H 03/25/18 18:00
--- NOTE | 2018-03-28 10:13 | PN ---
DATE: 03/28/2018 SUBJECTIVE: The patient is seen and examined. Interim events noted. Consults noted and appreciated. Patient remains in regular medical floor. Patient feels much better. Tolerated food well. No abdominal pain. PHYSICAL EXAMINATION: GENERAL: Patient is in no acute distress. VITAL SIGNS: Stable. HEART: S1 and S2 normal and regular. LUNGS: Good bilateral air exchange. ABDOMEN: Soft and nontender. No sign of acute abdomen. No guarding. No rigidity. No rebound. Bowel sounds are present and normal. EXTREMITIES: No edema. No calf swelling. No tenderness. No acute ischemia. 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 LABORATORY DATA: Available diagnostic data reviewed. Patient has TSH level of 170. On further inquiry, patient states that he has hypothyroidism and he ran out of medication and was taking 100 mcg as the last dose for his thyroid medication. PLAN: As ordered. Case and plan was discussed with the patient. Nadir Ivey MD
[2018-03-28] MEDS ORDERED: Levothyroxine 75 MCG TAB PO ONE (10:15)
[2018-03-28] MEDS ORDERED: Potassium Chloride 20 mEq ER Tab PO ONE (11:00)
--- NOTE | 2018-03-28 12:24 | CP.PCM.PN ---
Subjective - Date & Time of Evaluation Date of Evaluation: 03/28/18 Time of Evaluation: 12:18 - Subjective Subjective: Started on low fat diet yesterday. Denies abdominal pain. Objective - Vital Signs/Intake and Output Vital Signs (last 24 hours): Temp Pulse Resp BP Pulse Ox 98.4 F 56 L 18 123/74 95 03/28/18 07:57 03/28/18 07:57 03/28/18 07:57 03/28/18 07:57 03/28/18 07:57 - Medications Medications: Current Medications Ciprofloxacin (Cipro 400mg/200ml Dsw) 400 mg in 200 mls @ 200 mls/hr IVPB Q12 [facility]; Protocol Last Admin: 03/28/18 09:19 Dose: 200 mls/hr Levothyroxine Sodium (Synthroid) 100 mcg PO DAILY@0630 [facility] Morphine Sulfate (Morphine) 4 mg IVP Q4 PRN PRN Reason: Pain, severe (8-10) Last Admin: 03/28/18 09:20 Dose: 4 mg Ondansetron HCl (Zofran Inj) 4 mg IVP Q4 PRN PRN Reason: Nausea/Vomiting Last Admin: 03/25/18 23:00 Dose: 4 mg Pantoprazole Sodium (Protonix Inj) 40 mg IVP DAILY [facility] Last Admin: 03/28/18 09:20 Dose: 40 mg Ursodiol (Actigall) 300 mg PO TID [facility] - Labs Labs: 03/28/18 05:40 03/28/18 05:40 PT 15.0 Seconds (9.8-13.1) H 03/25/18 18:00 INR 1.3 03/25/18 18:00 APTT 45.7 Seconds (25.6-37.1) H 03/25/18 18:00 - Head Exam Head Exam: ATRAUMATIC - Eye Exam Eye Exam: Normal appearance Pupil Exam: PERRL - Neck Exam Neck Exam: Full ROM - Respiratory Exam Respiratory Exam: NORMAL BREATHING PATTERN - Cardiovascular Exam Cardiovascular Exam: REGULAR RHYTHM - GI/Abdominal Exam GI & Abdominal Exam: Soft. absent: Tenderness Assessment and Plan (1) Pancreatitis Assessment & Plan: Currently without abdominal pain and eating low fat diet. Sono showed small GB stones. Due to cirrhosis at high risk for surgery. Will start Zo 300 TID. Levothyroxine has been started. LFTs stiill high and liver serology pending. From GI perspective may be discharged home though will need careful monitoring as outpatient. Status: Acute (2) Transaminitis Status: Acute
[2018-03-28 12:33] LABS: HEPATITIS B SURFACE AG Negative (NEGATIVE)
[2018-03-28 12:39] LABS: HEPATITIS A IGM NEGATIVE (NEGATIVE); HEPATITIS B CORE AB NEGATIVE (NEGATIVE)
--- NOTE | 2018-03-28 12:58 | PQF ---
PROVIDER RESPONSE TEXT: Unable to Determine REVIEWER QUERY TEXT: Clarification of Clinical Diagnostic Findings Please clarify if Cirrhosis is related to Alcohol consumption or Hepatitis C etc. OR: Unable to determine OR: Other explanation of clinical finding MRI; MRCP and Abd W/WO contrast report : includes: Nodular hepatic contour consistent with cirrhosis. --In the setting of cirrhosis, hepatocellular carcinoma cannot be excluded. See the full report in e EMR. H and P includes: The patient also had history of treated hepatitis C in the past. Admitting Imp:Abdominal pain, pancreatitis, hypothyroidism, anxiety and depression. 03/26 Surgical consult includes: HPI: Patient states that he originally came in to the ED for the makayla n and got a CT of the abdomen which showed likely cirrhosis of the liver, gallstone, possible enterit is Impression:cholecystitis vs gallstone pancreatitis v cirrhosis 03/27 Surgical consult: No surgical intervention at this time secondary to transaminitis, portal hyp ertension and cirrhosis. The patient's Clinical Indicators include: - Query created by: Johanny Tolbert on 03/28/2018 12:30 PM Electronically signed by: Nadir Ivey 03/28/2018 12:55 PM
--- NOTE | 2018-03-28 13:00 | CP.PCM.PCO ---
Assessment/Plan - Assessment/Plan Assessment (Free Text): Pt stable, tolerating diet. Seen and cleared for d/c home by Sx and GI with outpatient follow up. Rx given for Cipro, Levothyroxine and Ursodiol. Pt agrees to f/u out patient with Dr. Blackmon and Dr. Ivey for continued monitoring of labs and medical condition Patient cleared for d/c home by Dr. Ivey
[2018-03-28 14:04] LABS: HEPATITIS C ANTIBODY REACTIVE (NEGATIVE)
[2018-03-29] MEDS ORDERED: Levothyroxine 100 MCG TAB PO SCH (06:30)
== END 2018-03-28 14:33 | disposition home or self-care (01) | DRG 204 ==
LOC: H.ER 16:35 → H.ERHOLD 19:19 → H.MEDSURG1 22:05
PROVIDERS: ADMIT Internal Medicine; ATTEND Internal Medicine
DX: K85.10 Biliary acute pancreatitis without necrosis or infection (principal); K74.60 Unspecified cirrhosis of liver; E87.6 Hypokalemia; F11.10 Opioid abuse, uncomplicated; F14.10 Cocaine abuse, uncomplicated; K80.20 Calculus of gallbladder without cholecystitis without obstruction; K76.6 Portal hypertension; E03.9 Hypothyroidism, unspecified; F41.9 Anxiety disorder, unspecified; F32.9 Major depressive disorder, single episode, unspecified; F17.210 Nicotine dependence, cigarettes, uncomplicated; Z86.19 Personal history of other infectious and parasitic diseases; Z87.11 Personal history of peptic ulcer disease

== ENCOUNTER 2018-07-15 23:36 | Emergency (ER) | payer MEDICAID ==
[2018-07-15 23:36] VITALS: BMI 33.2
[2018-07-15 23:47] VITALS: BP 120/80; PULSE 94; RESP 18; TEMP 98.1; O2SAT 95
--- NOTE | 2018-07-16 03:42 | ED PDOC ---
HPI: Back Time Seen by Provider: 07/16/18 03:40 Chief Complaint (Nursing): Back Pain Chief Complaint (Provider): back pain History Per: Patient (42 y/o male h/o Hep C/Pancreatitis/heroin abuse here with lower back after lifting object 2 weeks ago with moderate lower back pain. States he had appointmetn with Dr Franklin today but did not make appt.) Past Medical History Reviewed: Historical Data, Nursing Documentation, Vital Signs Vital Signs: Last Vital Signs Temp 98.1 F 07/15/18 23:44 Pulse 94 H 07/15/18 23:44 Resp 18 07/15/18 23:44 BP 120/80 07/15/18 23:44 Pulse Ox 95 07/15/18 23:44 - Medical History PMH: Anxiety, Depression, Gall Bladder Disease, Hypothyroidism, Pancreatitis Denies: Hepatitis (treated and cured of hepatitis C in [facility]), HIV, Chronic Kidney Disease - Surgical History Surgical History: Hernia Repair (left inguinal herna surgery) - Family History Family History: States: Unknown Family Hx - Immunization History Hx Tetanus Toxoid Vaccination: No Hx Influenza Vaccination: No Hx Pneumococcal Vaccination: No - Home Medications Home Medications: Ambulatory Orders Medication Instructions Recorded Ciprofloxacin [Cipro] 500 mg PO BID #14 tab 03/28/18 Levothyroxine [Synthroid] 100 mcg PO DAILY #30 tab 03/28/18 Ursodiol [Actigall] 300 mg PO TID #60 cap 03/28/18 traMADol [Ultram] 50 mg PO Q8 PRN #10 tab 07/16/18 - Allergies Allergies/Adverse Reactions: Allergies Allergy/AdvReac Type Severity Reaction Status Date / Time No Known Allergies Allergy Verified 07/15/18 23:44 Review of Systems ROS Statement: Except As Marked, All Systems Reviewed And Found Negative Physical Exam - Reviewed Nursing Documentation Reviewed: Yes Vital Signs Reviewed: Yes - Physical Exam Appears: Positive for: Well, Non-toxic, No Acute Distress Head Exam: Positive for: ATRAUMATIC, NORMAL INSPECTION, NORMOCEPHALIC Skin: Positive for: Normal Color, Warm, DRY Eye Exam: Positive for: EOMI, Normal appearance, PERRL ENT: Positive for: Normal ENT Inspection Neck: Positive for: Normal, Painless ROM Cardiovascular/Chest: Positive for: Regular Rate, Rhythm Respiratory: Positive for: CNT, Normal Breath Sounds Gastrointestinal/Abdominal: Positive for: Normal Exam, Soft Back: Positive for: Normal Inspection Extremity: Positive for: Normal ROM Neurological/Psych: Positive for: Awake, Alert, Normal Tone - ECG O2 Sat by Pulse Oximetry: 95 Disposition - Clinical Impression Clinical Impression: Back pain - Patient ED Disposition Is Patient to be Admitted: No - Disposition Disposition: Routine/Home Disposition Time: 03:42 Condition: FAIR Prescriptions: traMADol [Ultram] 50 mg PO Q8 PRN #10 tab PRN Reason: Pain, Moderate (4-7) Instructions: Low Back Pain (DC)
== END 2018-07-16 05:00 | disposition home or self-care (01) ==
LOC: H.ER 23:36
DX: M54.9 Dorsalgia, unspecified (principal)

== ENCOUNTER 2018-08-28 14:01 | Inpatient (IN) | payer MEDICAID ==
[2018-08-28] MEDS ORDERED: Lidocaine 5% Patch TD STA (14:26)
[2018-08-28] MEDS ORDERED: Lidocaine 5% Patch TD ONE (14:44)
--- NOTE | 2018-08-28 15:30 | ED PDOC ---
HPI: Back Time Seen by Provider: 08/28/18 14:14 Chief Complaint (Nursing): Back Pain Chief Complaint (Provider): back pain History Per: Patient History/Exam Limitations: no limitations Onset/Duration Of Symptoms: Days (2x months) Current Symptoms Are (Timing): Still Present Severity: Moderate Additional Complaint(s): 42 year old male with no pertinent past medical history presents to the ED for an evaluation of lower back pain which radiates to the front of both thighs constant for 2x months. Patient states that he was seen here for the same complaint and was given a prescription for tramadol which he has taken with no relief. Patient states that today he was walking to the store when his legs gave out as his back pain worsened. Patient states that 6x hours prior to arrival, he took 3x tylenol tabs and 1x naproxen tab with no relief. Patient denies any trauma, dysuria, incontinence, weakness, and fevers. Patient does report having chills last night, but did not check his temperature. Patient admits to using heroin (last time was yesterday). PMD: Feliciano Franklin MD. Past Medical History Reviewed: Historical Data, Nursing Documentation, Vital Signs Vital Signs: Last Vital Signs Temp 98.2 F 08/28/18 14:06 Pulse 62 08/28/18 14:06 Resp 18 08/28/18 14:06 BP 136/93 H 08/28/18 14:06 Pulse Ox 97 08/28/18 14:06 ANNA Report Viewed: Yes - Medical History PMH: Anxiety, Depression, Gall Bladder Disease, Hypothyroidism, Pancreatitis Denies: Hepatitis (treated and cured of hepatitis C in alf), HIV, Chronic Kidney Disease - Surgical History Surgical History: Hernia Repair (left inguinal herna surgery) - Family History Family History: States: No Known Family Hx - Social History Current smoker - smoking cessation education provided: Yes (light smoker) Alcohol: None Drugs: Opiates (heroin, last used yesterday) - Immunization History Hx Tetanus Toxoid Vaccination: No Hx Influenza Vaccination: No Hx Pneumococcal Vaccination: No - Home Medications Home Medications: Ambulatory Orders Medication Instructions Recorded Ciprofloxacin [Cipro] 500 mg PO BID #14 tab 03/28/18 Levothyroxine [Synthroid] 100 mcg PO DAILY #30 tab 03/28/18 Ursodiol [Actigall] 300 mg PO TID #60 cap 03/28/18 traMADol [Ultram] 50 mg PO Q8 PRN #10 tab 07/16/18 - Allergies Allergies/Adverse Reactions: Allergies Allergy/AdvReac Type Severity Reaction Status Date / Time No Known Allergies Allergy Verified 07/15/18 23:44 Review of Systems ROS Statement: Except As Marked, All Systems Reviewed And Found Negative Constitutional: Positive for: Chills. Negative for: Fever Genitourinary Male: Negative for: Dysuria, Incontinence Musculoskeletal: Positive for: Back Pain (lower, radiates to front of both thighs) Neurological: Negative for: Weakness Physical Exam - Reviewed Nursing Documentation Reviewed: Yes Vital Signs Reviewed: Yes - Physical Exam Appears: Positive for: Well (seen talking on the phone, happy), Non-toxic, No Acute Distress Head Exam: Positive for: ATRAUMATIC, NORMOCEPHALIC Skin: Positive for: Normal Color, Warm, Dry Cardiovascular/Chest: Positive for: Regular Rate, Rhythm Respiratory: Positive for: Normal Breath Sounds Gastrointestinal/Abdominal: Positive for: Normal Exam, Soft. Negative for: Tenderness Back: Positive for: Normal Inspection, Muscle Spasm (bilateral paralumbar muscle spasm), Other ((-) straight leg raise bilaterally. ). Negative for: L CVA Tenderness, R CVA Tenderness, Vertebral Tenderness ((-) midline vertebral tenderness) Extremity: Positive for: Other (bilateral lower extremities strength 5/5. bilateral upper extremities strength 5/5.) Neurological/Psych: Positive for: Awake, Alert, Oriented (3x) - Laboratory Results Result Diagrams: 08/28/18 16:09 08/28/18 16:09 - ECG O2 Sat by Pulse Oximetry: 97 (RA) Pulse Ox Interpretation: Normal - Radiology X-Ray: Viewed By Me, Read By Radiologist (see MDM note) - CT Scan/US CT l-spine w/o contrast Other Rad Studies (CT/US): Read By Radiologist, Radiology Report Reviewed (see MDM note) Medical Decision Making Medical Decision Makin:14 Initial impression: 42 year old male with back pain Initial plan: * XRay LS spine * CMP * drug screen urinary * CBC with differential * ESR * urinalysis * lidoderm 1 ea TD * toradol 30 mg IM * valium 10 mg PO once * reevaluation 15:27 XRay ls spine read and reviewed by radiologist FINDINGS: BONES: Current study reveals what appears represent collapse and probably destructive changes of the superior L2 vertebral body segment with marked irregularity of the intervening the L2 and L3 disc space. There is also retropulsion of the pos terior cortex and what appears represent some mild posterior subluxation of L1 over L2 findings. Slight resultant kyphotic angulation deformity centered at this level. Collectively felt to represent discitis osteomyelitis. Follow-up cross-sectional imaging studies recommended for further evaluation Minimal chronic anterior stature loss of the T12 segment. Remaining vertebral bodies otherwise exhibit normal stature. Vertebral bodies and facets otherwise exhibit normal alignment. Multilevel degenerative spondylosis. Changes include varying degrees of disc space narrowing, endplate eburnation and anterolateral osteophyte formation. Facets also mildly hypertrophic in the lower lumbar levels. Note that there is a transitional vertebral body segment likely representing sacralized L5 segment. DISC SPACES: Unremarkable. OTHER FINDINGS: None. IMPRESSION: Findings most likely represent discitis osteomyelitis at the L2-L3 level of with partial collapse of the L2 segment and retropulsion for of posterior superior corner. There is also slight posterior subluxation of L1 over L2. Note that these findings were discussed with emergency room EDUIN Harmon at approximately 5:15 p.m. with written down and read back verification. Follow-up cross-sectional imaging studies recommended for further evaluation 17:27 Case discussed with who recommends CT of L spine and antibiotics for patient. Patient informed and agrees to plan. Patient reports that he has not eaten since yesterday evening. Patient advised to continue NPO. Case discussed with who states that the patient is no longer their patient. If patient needs admission, admit to medical services. Patient informed of plan. Patient agrees to plan. Reports no relief in pain. 19:14 CT L-spine w/o contrast read and reviewed by radiologist FINDINGS: ALIGNMENT: Bony alignment is anatomic. DISCS/DEGENERATIVE CHANGES: T12/L1: No significant central canal or neural foraminal stenosis. L1/L2: No significant central canal or neural foraminal stenosis. L2/L3: disc space narrowing, with associated destruction of the inferior endplate of L2 and superior endplate of L3. Findings suspicious for acute discitis. Bony density measuring 5 mm is displaced posteriorly into the spinal canal, at the level of the superior endplate of L3, causing moderate spinal canal stenosis. L3/4: No significant central canal or neural foraminal stenosis. L4/5: No significant central canal or neural foraminal stenosis. L5/S1: No significant central canal or neural foraminal stenosis. BONES: No acute fracture or aggressive appearing osseous lesion. SOFT TISSUES: The soft tissues are unremarkable. MISCELLANEOUS: No abnormal contrast enhancement. IMPRESSION: findings suspicious for acute discitis at L2-L3, with associated destruction of the inferior endplate of L2 and superior endplate of L3. Retropulsion of a bony fragment at the level of the superior endplate of L3, causing moderate spinal canal stenosis Case d/w Dr. Lang, neurosurgery, who recommends MRI of LS spine w/o contrast and biopsy of L2 and L3 vertebral bodies via IR. No further meds necessary and states no need for patient to be NPO. Case d/w Dr. Corrales and arrangements made for admission. Scribe Attestation: Documented by Hawa Weems, acting as a scribe for Jr Strange Provider Scribe Attestation: All medical record entries made by the Scribe were at my direction and personally dictated by me. I have reviewed the chart and agree that the record accurately reflects my personal performance of the history, physical exam, medical decision making, and the department course for this patient. I have also personally directed, reviewed, and agree with the discharge instructions and disposition. Disposition - Clinical Impression Clinical Impression: Intractable low back pain, Discitis - Patient ED Disposition Is Patient to be Admitted: Yes - Disposition Disposition Time: 17:27 Condition: FAIR - Pt Status Changed To: Hospital Disposition Of: Inpatient - Admit Certification Admit to Inpatient:: After my assessment, the patient will require hospitalization for at least two midnights. This is because of the severity of symptoms shown, intensity of services needed, and/or the medical risk in this patient being treated as an outpatient.
[2018-08-28 16:27] LABS: BASO % 0.6 % (0.0-2.0); EOS # 0.1 K/uL (0.0-0.7); EOS % 1.2 % (0.0-4.0); HEMOGLOBIN 13.9 g/dL (12.0-18.0); LYMPH % 21.4 % (20.0-40.0); MEAN CELL VOLUME 90.2 fl (80.0-94.0); MEAN CORPUSCULAR HEMOGLOBIN 30.3 pg (27.0-31.0); MEAN CORPUSCULAR HGB CONC 33.6 g/dL (33.0-37.0); MONO # 0.3 K/uL (0.0-0.8); MONO % 7.2 % (0.0-10.0); NEUT # 3.2 K/uL (1.8-7.0); NEUT % 69.6 % (50.0-75.0); NRBC % 0.2 % (0.0-0.0); RBC 4.58 Mil/uL (4.40-5.90); RED CELL DISTRIBUTION WIDTH 15.9 % (11.5-14.5); WHITE BLOOD COUNT 4.6 K/uL (4.8-10.8)
[2018-08-28 16:37] LABS: ALB/GLOB RATIO 0.7 (1.0-2.1); ALBUMIN 3.5 g/dL (3.5-5.0); ALT/SGPT 28 U/L (21-72); AST/SGOT 55 U/L (17-59); BLOOD UREA NITROGEN 16 mg/dl (9-20); CALCIUM 8.5 mg/dL (8.4-10.2); GFR NON-AFRICAN AMERICAN > 60
[2018-08-28] MEDS ORDERED: Morphine 4 MG/ML VIAL IVP STA (17:26)
--- NOTE | 2018-08-28 17:31 | RAD ---
Date of service: PROCEDURE: Radiographs of the Lumbar Spine. HISTORY: Pain COMPARISON: Comparison made with prior CT scan the abdomen and pelvis 03/16/2018 TECHNIQUE: 5 views obtained. FINDINGS: BONES: Current study reveals what appears represent collapse and probably destructive changes of the superior L2 vertebral body segment with marked irregularity of the intervening the L2 and L3 disc space. There is also retropulsion of the posterior cortex and what appears represent some mild posterior subluxation of L1 over L2 findings. Slight resultant kyphotic angulation deformity centered at this level. Collectively felt to represent discitis osteomyelitis. Follow-up cross-sectional imaging studies recommended for further evaluation Minimal chronic anterior stature loss of the T12 segment. Remaining vertebral bodies otherwise exhibit normal stature. Vertebral bodies and facets otherwise exhibit normal alignment. Multilevel degenerative spondylosis. Changes include varying degrees of disc space narrowing, endplate eburnation and anterolateral osteophyte formation. Facets also mildly hypertrophic in the lower lumbar levels. Note that there is a transitional vertebral body segment likely representing sacralized L5 segment. DISC SPACES: Unremarkable. OTHER FINDINGS: None. IMPRESSION: Findings most likely represent discitis osteomyelitis at the L2-L3 level of with partial collapse of the L2 segment and retropulsion for of posterior superior corner. There is also slight posterior subluxation of L1 over L2. Note that these findings were discussed with emergency room EDUIN Harmon at approximately 5:15 p.m. with written down and read back verification. Follow-up cross-sectional imaging studies recommended for further evaluation
[2018-08-28] MEDS ORDERED: Sodium Chloride 0.9% 1,000 ML IV STA (17:38)
[2018-08-28] MEDS ORDERED: Piperacillin/Tazobact 3.375 GM in Sodium Chloride 0.9% 100 ML IV STA (17:44)
[2018-08-28] MEDS ORDERED: Morphine 4 MG/ML VIAL ONE (17:46)
[2018-08-28] MEDS ORDERED: Piperacillin/Tazobact 3.375 GM in Sodium Chloride 0.9% 100 ML IVPB STA (17:48)
[2018-08-28] MEDS ORDERED: Iohexol 300 100 ML IJ ONE (18:07)
[2018-08-28] MEDS ORDERED: Sodium Chloride 0.9% 50 ML IV ONE (18:07)
[2018-08-28] MEDS ORDERED: Piperacillin/Tazobact 3.375 gm Inj IVPB ONE (18:09)
[2018-08-28] MEDS ORDERED: Vancomycin 1 g Inj ONE (18:09)
[2018-08-28 18:16] LABS: URINE BILIRUBIN NEGATIVE (NEGATIVE); URINE BLOOD NEGATIVE (NEGATIVE); URINE CLARITY CLEAR (Clear); URINE COLOR YELLOW (YELLOW); URINE GLUCOSE (UA) NEG (NEGATIVE); URINE LEUKOCYTE ESTERASE NEG Leu/uL (Negative); URINE PROTEIN NEGATIVE (NEGATIVE); URINE UROBILINOGEN 0.2-1.0 mg/dL (0.2-1.0)
[2018-08-28 18:31] LABS: BARBITURATES, UR NEGATIVE (NEGATIVE); BENZODIAZEPINES, UR POSITIVE (NEGATIVE); OPIATES, UR POSITIVE (NEGATIVE); PHENCYCLIDINE, UR NEGATIVE (NEGATIVE)
--- NOTE | 2018-08-28 20:16 | CP.PCM.HP ---
<GaganElizabeth - Last Filed: 08/28/18 21:17> History of Present Illness - History of Present Illness History of Present Illness: 42 y/o M with significant PMH of IVDA & Hepatitis C is c/o 2 months of vague lower back & b/l hip pain, 8/10 in nature. He endorses that the pain radiates to the legs, and has caused some b/l leg weakness. Patient reports that pain started after doing some heavy lifting while helping someone move. Since then, the pain has been constant. He reports today while walking he felt as if his legs were getting even more weak, and decided to call EMS. He has had some chills, but denies any fever, nausea, vomitting, chest pain, shortness of breath, urinary/fecal incontinence or trauma. 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 There is also slight posterior subluzation of L1 over L2. Present on Admission - Present on Admission Any Indicators Present on Admission: No Past Patient History - Infectious Disease Hx of Infectious Diseases: None - Past Medical History & Family History Past Medical History?: Yes - Past Social History Alcohol: None Drugs: Opiates (heroin, last used yesterday) - CARDIAC Hx Cardiac Disorders: No - PULMONARY Hx Respiratory Disorders: No - NEUROLOGICAL Hx Neurological Disorder: No - HEENT Hx HEENT Problems: No - RENAL Hx Chronic Kidney Disease: No - ENDOCRINE/METABOLIC Hx Hypothyroidism: Yes - HEMATOLOGICAL/ONCOLOGICAL Hx Human Immunodeficiency Virus (HIV): No - INTEGUMENTARY Hx Dermatological Problems: No - MUSCULOSKELETAL/RHEUMATOLOGICAL Hx Musculoskeletal Disorders: No Hx Falls: No - GASTROINTESTINAL Hx Gall Bladder Disease: Yes Hx Pancreatitis: Yes - GENITOURINARY/GYNECOLOGICAL Hx Genitourinary Disorders: No - PSYCHIATRIC Hx Anxiety: Yes Hx Depression: Yes - SURGICAL HISTORY Hx Herniorrhaphy: Yes Other/Comment: rt. eye sx. - ANESTHESIA Hx Anesthesia: No Hx Anesthesia Reactions: No Hx Malignant Hyperthermia: No Meds Allergies/Adverse Reactions: Allergies Allergy/AdvReac Type Severity Reaction Status Date / Time No Known Allergies Allergy Verified 07/15/18 23:44 Physical Exam - Constitutional Appears: Non-toxic, Unkempt - Head Exam Head Exam: ATRAUMATIC, NORMAL INSPECTION - ENT Exam ENT Exam: Mucous Membranes Moist - Neck Exam Neck exam: Positive for: Full Rom - Respiratory Exam Respiratory Exam: Clear to Auscultation Bilateral. absent: Wheezes - Cardiovascular Exam Cardiovascular Exam: REGULAR RHYTHM, +S1, +S2 - GI/Abdominal Exam GI & Abdominal Exam: Normal Bowel Sounds, Soft, Tenderness. absent: Guarding, Rebound, Rigid - Extremities Exam Extremities exam: Negative for: calf tenderness - Neurological Exam Neurological exam: Alert, Oriented x3 Additional comments: strength in upper/lower activities intact symmetrically - Skin Additional comments: scattered areas of hyperpigmentation on lower legs b/l Results - Vital Signs Recent Vital Signs: Last Vital Signs Temp 98.2 F 08/28/18 14:06 Pulse 62 08/28/18 14:06 Resp 18 08/28/18 14:06 BP 136/93 H 08/28/18 14:06 Pulse Ox 97 08/28/18 19:27 - Labs Result Diagrams: 08/28/18 16:09 08/28/18 16:09 Labs: Laboratory Results - last 24 hr 08/28/18 08/28/18 08/28/18 16:09 16:09 18:00 WBC 4.6 L RBC 4.58 Hgb 13.9 Hct 41.4 MCV 90.2 D MCH 30.3 MCHC 33.6 RDW 15.9 H Plt Count 103 L MPV 8.0 Neut % (Auto) 69.6 Lymph % (Auto) 21.4 [place] % (Auto) 7.2 Eos % (Auto) 1.2 Baso % (Auto) 0.6 Neut # (Auto) 3.2 Lymph # (Auto) 1.0 [place] # (Auto) 0.3 Eos # (Auto) 0.1 Baso # (Auto) 0.0 ESR 67 H Sodium 135 Potassium 3.8 Chloride 102 Carbon Dioxide 25 Anion Gap 12 BUN 16 Creatinine 0.6 L Est GFR ( Amer) > 60 Est GFR (Non-Af Amer) > 60 Random Glucose 84 Calcium 8.5 Total Bilirubin 1.0 AST 55 ALT 28 Alkaline Phosphatase 250 H D Total Protein 9.0 H Albumin 3.5 D Globulin 5.4 H Albumin/Globulin Ratio 0.7 L Urine Color Urine Clarity Urine pH Ur Specific [place] Urine Protein Urine Glucose (UA) Urine Ketones Urine Blood Urine Nitrate Urine Bilirubin Urine Urobilinogen Ur Leukocyte Esterase Urine RBC (Auto) Urine Opiates Screen Positive H Urine Methadone Screen Negative Ur Barbiturates Screen Negative Ur Phencyclidine Scrn Negative Ur Amphetamines Screen Negative U Benzodiazepines Scrn Positive U Oth Cocaine Metabols Negative U Cannabinoids Screen Negative 08/28/18 18:00 WBC RBC Hgb Hct MCV MCH MCHC RDW Plt Count MPV Neut % (Auto) Lymph % (Auto) [place] % (Auto) Eos % (Auto) Baso % (Auto) Neut # (Auto) Lymph # (Auto) [place] # (Auto) Eos # (Auto) Baso # (Auto) ESR Sodium Potassium Chloride Carbon Dioxide Anion Gap BUN Creatinine Est GFR ( Amer) Est GFR (Non-Af Amer) Random Glucose Calcium Total Bilirubin AST ALT Alkaline Phosphatase Total Protein Albumin Globulin Albumin/Globulin Ratio Urine Color Yellow Urine Clarity Clear Urine pH 6.0 Ur Specific [place] 1.025 Urine Protein Negative Urine Glucose (UA) Neg Urine Ketones Negative Urine Blood Negative Urine Nitrate Negative Urine Bilirubin Negative Urine Urobilinogen 0.2-1.0 Ur Leukocyte Esterase Neg Urine RBC (Auto) 3 Urine Opiates Screen Urine Methadone Screen Ur Barbiturates Screen Ur Phencyclidine Scrn Ur Amphetamines Screen U Benzodiazepines Scrn U Oth Cocaine Metabols U Cannabinoids Screen Assessment & Plan - Assessment and Plan (Free Text) Assessment: 42 y/o M with significant PMH of IVDA & Hepatitis C presented to the ED c/o 2 months of vague lower back & b/l hip pain some worsening b/l leg weakness. Lumbar spine x-ray showed likely Osteomyelitis. -Lower back & b/l hip pain -Likely due to Osteomyelitis -Admit to Medsurg -FU official lumbar spine CT report -FU MRI lumbar spine & echo -Lumbar spine x-ray: Findings most likely represnt discitis osteomyelitis at L2- L3 level with partial collapse of L2 segment & retropulsion for posterior superior corner. There is also slight posterior subluzation of L1 over L2. s/p 1 dose of Vanco & zosyn in ED -C/w pain med regimen as needed -Neuro surgery consulted: Dr. Lang -IR consulted -FU Vanco trough, AM CBC, CMP & bcx -IVDA -FU rapid HIV -Hypothyroidism -Synthroid 100mcg -Hep C -Hepatitic C antibody positive 03/2018 Diet -NPO DVT prophylaxis -SCD for now <Jarrod Corrales D - Last Filed: 08/28/18 23:44> Results - Vital Signs Recent Vital Signs: Last Vital Signs Temp 98.2 F 08/28/18 14:06 Pulse 62 08/28/18 14:06 Resp 18 08/28/18 14:06 BP 136/93 H 08/28/18 14:06 Pulse Ox 97 08/28/18 22:15 - Labs Result Diagrams: 08/28/18 16:09 08/28/18 16:09 Labs: Laboratory Results - last 24 hr 08/28/18 08/28/18 08/28/18 16:09 16:09 18:00 WBC 4.6 L RBC 4.58 Hgb 13.9 Hct 41.4 MCV 90.2 D MCH 30.3 MCHC 33.6 RDW 15.9 H Plt Count 103 L MPV 8.0 Neut % (Auto) 69.6 Lymph % (Auto) 21.4 [place] % (Auto) 7.2 Eos % (Auto) 1.2 Baso % (Auto) 0.6 Neut # (Auto) 3.2 Lymph # (Auto) 1.0 [place] # (Auto) 0.3 Eos # (Auto) 0.1 Baso # (Auto) 0.0 ESR 67 H Sodium 135 Potassium 3.8 Chloride 102 Carbon Dioxide 25 Anion Gap 12 BUN 16 Creatinine 0.6 L Est GFR ( Amer) > 60 Est GFR (Non-Af Amer) > 60 Random Glucose 84 Calcium 8.5 Total Bilirubin 1.0 AST 55 ALT 28 Alkaline Phosphatase 250 H D Total Protein 9.0 H Albumin 3.5 D Globulin 5.4 H Albumin/Globulin Ratio 0.7 L Urine Color Urine Clarity Urine pH Ur Specific [place] Urine Protein Urine Glucose (UA) Urine Ketones Urine Blood Urine Nitrate Urine Bilirubin Urine Urobilinogen Ur Leukocyte Esterase Urine RBC (Auto) Urine Opiates Screen Positive H Urine Methadone Screen Negative Ur Barbiturates Screen Negative Ur Phencyclidine Scrn Negative Ur Amphetamines Screen Negative U Benzodiazepines Scrn Positive U Oth Cocaine Metabols Negative U Cannabinoids Screen Negative HIV-1 Ab Rapid Screen 08/28/18 08/28/18 18:00 22:25 WBC RBC Hgb Hct MCV MCH MCHC RDW Plt Count MPV Neut % (Auto) Lymph % (Auto) [place] % (Auto) Eos % (Auto) Baso % (Auto) Neut # (Auto) Lymph # (Auto) [place] # (Auto) Eos # (Auto) Baso # (Auto) ESR Sodium Potassium Chloride Carbon Dioxide Anion Gap BUN Creatinine Est GFR ( Amer) Est GFR (Non-Af Amer) Random Glucose Calcium Total Bilirubin AST ALT Alkaline Phosphatase Total Protein Albumin Globulin Albumin/Globulin Ratio Urine Color Yellow Urine Clarity Clear Urine pH 6.0 Ur Specific [place] 1.025 Urine Protein Negative Urine Glucose (UA) Neg Urine Ketones Negative Urine Blood Negative Urine Nitrate Negative Urine Bilirubin Negative Urine Urobilinogen 0.2-1.0 Ur Leukocyte Esterase Neg Urine RBC (Auto) 3 Urine Opiates Screen Urine Methadone Screen Ur Barbiturates Screen Ur Phencyclidine Scrn Ur Amphetamines Screen U Benzodiazepines Scrn U Oth Cocaine Metabols U Cannabinoids Screen HIV-1 Ab Rapid Screen Non reactive Attending/Attestation - Attestation I have personally seen and examined this patient.: Yes I have fully participated in the care of the patient.: Yes I have reviewed all pertinent clinical information: Yes Notes (Text): 08/28/18 23:43 Patient seen and examined with resident. Case discussed and agreed with assessment and plan of management.
[2018-08-28] MEDS ORDERED: Oxycodone/Acetaminophen 5/325 mg Tab PO PRN (20:17)
[2018-08-28] MEDS: Piperacillin/Tazobact 3.375 GM in Sodium Chloride 0.9% 100 ML IVPB SCH (23:00)
[2018-08-29] MEDS: Piperacillin/Tazobact 3.375 GM in Sodium Chloride 0.9% 100 ML IVPB SCH ×4 (04:21→23:05)
[2018-08-29] MEDS: Levothyroxine 100 MCG TAB PO SCH (05:46)
[2018-08-29 06:58] LABS: BASO % 0.7 % (0.0-2.0); EOS # 0.1 K/uL (0.0-0.7); EOS % 1.7 % (0.0-4.0); HEMOGLOBIN 13.8 g/dL (12.0-18.0); LYMPH % 24.6 % (20.0-40.0); MEAN CELL VOLUME 89.7 fl (80.0-94.0); MEAN CORPUSCULAR HEMOGLOBIN 30.5 pg (27.0-31.0); MEAN PLATELET VOLUME 8.2 fl (7.2-11.7); MONO # 0.3 K/uL (0.0-0.8); NEUT # 2.7 K/uL (1.8-7.0); NRBC % 0.2 % (0.0-0.0); RBC 4.53 Mil/uL (4.40-5.90); RED CELL DISTRIBUTION WIDTH 16.3 % (11.5-14.5); WHITE BLOOD COUNT 4.2 K/uL (4.8-10.8)
[2018-08-29 07:08] LABS: BLOOD UREA NITROGEN 12 mg/dl (9-20); CALCIUM 8.3 mg/dL (8.4-10.2); GFR NON-AFRICAN AMERICAN > 60
[2018-08-29] MEDS ORDERED: Oxycodone/Acetaminophen 5/325 mg Tab PO PRN ×3 (08:25→08:30)
--- NOTE | 2018-08-29 08:52 | CT ---
Date of service: 08/28/2018 PROCEDURE: CT Lumbar Spine with contrast HISTORY: low back pain; IVDA; high ESR COMPARISON: Lumbar radiographs 08/28/2018. Abdomen MRI 03/26/2018. TECHNIQUE: Axial computed tomography images were obtained of the lumbar spine following intravenous administration of Omnipaque 300, 95 cc. Coronal and sagittal reformatted images were created and reviewed. Radiation dose: Total exam DLP = 683.46 mGy-cm. This CT exam was performed using one or more of the following dose reduction techniques: Automated exposure control, adjustment of the mA and/or kV according to patient size, and/or use of iterative reconstruction technique. FINDINGS: VERTEBRAE: The prior, normal lordotic curvature is interrupted by grade 1 spondylolisthesis of L1 slightly posterior to L2. No spondylolysis bilaterally. L5 appears fused to S1 may be somewhat sacralized. There erosion of the endplates surrounding the 1 2 disc interspace with the superior mid portions of L2 vertebral body eroded. Majority of the inferior endplate of L1 is likely a right with potential preservation of limited portion of the posterior margin of the inferior endplate. Findings are compatible with discitis osteomyelitis most likely. Further, erosion of the anterior margins of the superior endplate of L3 is not excluded as well as portions of the inferior endplate of L2 to raising question of additional discitis pattern. Further evaluation of L4-5 indicates probable advanced degenerative changes, favored over potential infectious or inflammatory causes disc height loss and focal endplate erosions/Schmorl's nodes. Prominent prevertebral paraspinal soft tissue edema is appreciated surrounding the L1-2 disc interspace including displacement of bone and disc material into the anterior epidural space at L1-2. No preliminary imaging was performed and enhancement is not clearly identified in the epidural space though there may be some enhancement in the bilateral paraspinal soft tissues in the axial series. Epidural abscess is not excluded and follow-up MRI without intravenous gadolinium is advised for more detailed characterization and soft tissue resolution. DISCS/SPINAL CANAL/NEURAL FORAMINA: L1-2: High-grade stenosis is caused by bony fragments and soft tissue occupying the anterior epidural space related to discitis osteomyelitis with epidural abscess not excluded here. Follow-up MRI advised for added characterization. Significant bilateral neural foraminal stenosis is in question due to soft tissue. L2-3: As discussed above. Discitis osteomyelitis is not excluded at this level with a mild stenosis suggested bones by a least a generalized disc bulge if not additional soft tissue. Mild bilateral neural foraminal stenoses are identified. L3-4: Posterior disc bulging flattens the ventral thecal sac with limited facet joint degenerative changes stenosing the lateral recesses symmetrically. No significant neural foraminal stenosis bilaterally. L4-5: Posterior disc bulge flattens the ventral thecal sac without causing significant central stenosis. Ventral nerve roots are encroached if not impinged. No significant neural foraminal stenosis bilaterally. L5-S1: Transitional L5 identified. No significant stenosis at this level. OTHER FINDINGS: None. IMPRESSION: Findings most compatible discitis osteomyelitis at L1-2 and potentially at L2-3 as well. Epidural abscess is not excluded at anterior epidural space at this level and follow-up MRI is advised with without gadolinium for greater soft tissue resolution. Limited abscess is questioned at the left and right lateral epidural as well as anterior epidural soft tissues which trace enhancement is suspected. Lack of preliminary CT without contrast limits evaluation of potential contrast enhancement. Limited grade 1 spondylolisthesis L1-2. Discordant levels of the lumbar spine from [facility] v[facility] preliminary interpretation with L1-2 felt to be the primary site of osteomyelitis/discitis and not L2-3 though L2-3 may be early in discitis osteomyelitis development as discussed above. Preliminary report provided by Brian, 08/28/2018 7:14 p.m..
[2018-08-29] MEDS: Pantoprazole 40 mg EC Tab PO SCH (09:18)
[2018-08-29] MEDS ORDERED: Pneumococcal 23-Valent Vaccine IM ONE (10:00)
--- NOTE | 2018-08-29 10:14 | CP.PCM.PN ---
<Trinidad Olmstead - Last Filed: 08/29/18 16:51> Subjective - Date & Time of Evaluation Date of Evaluation: 08/29/18 Time of Evaluation: 08:00 - Subjective Subjective: Pt seen and examined at bedside. Reports back pain, and B/L sciatic like pain, tingling in calves. Denies incontinence, saddle anesthesia. Has not tried to ambulate since admission. Denies recent URI, fever, chills, nausea or vomiting. NPO diet Objective - Vital Signs/Intake and Output Vital Signs (last 24 hours): Temp Pulse Resp BP Pulse Ox 97.7 F 64 20 162/96 H 96 08/29/18 08:04 08/29/18 08:04 08/29/18 08:04 08/29/18 08:04 08/29/18 08:04 - Medications Medications: Current Medications Docusate Sodium (Colace) 100 mg PO BID [facility] Last Admin: 08/29/18 09:17 Dose: 100 mg Piperacillin Sod/Tazobactam (Sod 3.375 gm/ Sodium Chloride) 100 mls @ 100 mls/hr IVPB Q6 [facility]; Protocol Last Admin: 08/29/18 09:13 Dose: 100 mls/hr Vancomycin HCl 1 gm/ Sodium (Chloride) 250 mls @ 166.667 mls/hr IVPB Q12 [facility]; Protocol Last Admin: 08/28/18 23:00 Dose: Not Given Ibuprofen (Motrin Tab) 600 mg PO Q6 PRN PRN Reason: Pain, Mild (1-3) Ketorolac Tromethamine (Toradol) 15 mg IVP Q6 PRN PRN Reason: Pain, moderate (4-7) Last Admin: 08/29/18 05:44 Dose: 15 mg Ketorolac Tromethamine (Toradol) 30 mg IVP Q6 PRN PRN Reason: Pain, severe (8-10) Last Admin: 08/29/18 00:03 Dose: 30 mg Levothyroxine Sodium (Synthroid) 100 mcg PO DAILY@0630 [facility] Last Admin: 08/29/18 05:46 Dose: 100 mcg Lidocaine (Lidoderm) 1 ea TD DAILY [facility] Morphine Sulfate (Morphine) 2 mg IVP Q4 PRN PRN Reason: Pain, severe (8-10) Last Admin: 08/29/18 09:09 Dose: 2 mg Oxycodone/Acetaminophen (Percocet 5/325 Mg Tab) 1 tab PO Q4 PRN PRN Reason: Pain, moderate (4-7) Stop: 08/31/18 20:18 Pantoprazole Sodium (Protonix Ec Tab) 40 mg PO DAILY [facility] Last Admin: 08/29/18 09:18 Dose: 40 mg - Labs Labs: 08/29/18 06:35 08/29/18 06:35 - Constitutional Appears: Non-toxic, No Acute Distress - Head Exam Head Exam: NORMAL INSPECTION - Eye Exam Eye Exam: EOMI - ENT Exam ENT Exam: Mucous Membranes Moist - Respiratory Exam Respiratory Exam: Clear to Ausculation Bilateral. absent: Rales, Rhonchi, Wheezes - Cardiovascular Exam Cardiovascular Exam: RRR, +S1, +S2 - GI/Abdominal Exam GI & Abdominal Exam: Soft, Normal Bowel Sounds. absent: Tenderness - Back Exam Additional comments: + straight leg raise, hyperpigmentation B/L LE - Neurological Exam Neurological Exam: Alert, Awake, Oriented x3 Additional comments: Strength and sensation 5/5 UE and LE Assessment and Plan - Assessment and Plan (Free Text) Assessment: 42 y/o M with significant PMH of IVDA & Hepatitis C presented to the ED c/o 2 months of vague lower back & b/l hip pain some worsening b/l leg weakness. Lumbar spine x-ray showed likely Osteomyelitis. -Lower back & b/l hip pain -Likely due to Osteomyelitis, ESR 67 -Lumbar spine CT: Discitis osteomylitis at L1-2 and potentionally L2-L3. Epidural abscess nor exlcuded and MRI w/o parvez advised for better resolution. Spondylolisthesis L1-L2. -Lumbar spine x-ray: Findings most likely represnt discitis osteomyelitis at L2- L3 level with partial collapse of L2 segment & retropulsion for posterior superior corner. There is also slight posterior subluzation of L1 over L2. -Vanco 1gm Q12 & zosyn 3.375 Q6 -C/w pain med regimen as needed- morphine, lidoderm, percocet -Neuro surgery consulted: Dr. Lang -IR consulted- determined no intervention -FU MRI lumbar spine -Fu Vanco trough, CBC, CMP & bcx in AM -IVDA -ID consulted- Dr. Schrader- f/u reccs -HIV negative -Echo EF 60-65% no evidence of endocarditis -Hypothyroidism -Synthroid 100mcg -Hep C -Hepatitic C antibody positive 03/2018 Diet -Heart healthy DVT prophylaxis -SCD <Kely Coughlin - Last Filed: 08/29/18 18:15> Objective - Vital Signs/Intake and Output Vital Signs (last 24 hours): Temp Pulse Resp BP Pulse Ox 98 F 71 20 159/92 H 97 08/29/18 16:19 08/29/18 16:19 08/29/18 16:19 08/29/18 16:19 08/29/18 16:19 - Medications Medications: Current Medications Docusate Sodium (Colace) 100 mg PO BID [facility] Last Admin: 08/29/18 09:17 Dose: 100 mg Piperacillin Sod/Tazobactam (Sod 3.375 gm/ Sodium Chloride) 100 mls @ 100 mls/hr IVPB Q6 [facility]; Protocol Last Admin: 08/29/18 16:28 Dose: 100 mls/hr Vancomycin HCl 1 gm/ Sodium (Chloride) 250 mls @ 166.667 mls/hr IVPB Q12 [facility]; Protocol Last Admin: 08/29/18 10:53 Dose: 166.667 mls/hr Ibuprofen (Motrin Tab) 600 mg PO Q6 PRN PRN Reason: Pain, Mild (1-3) Ketorolac Tromethamine (Toradol) 15 mg IVP Q6 PRN PRN Reason: Pain, moderate (4-7) Last Admin: 08/29/18 05:44 Dose: 15 mg Ketorolac Tromethamine (Toradol) 30 mg IVP Q6 PRN PRN Reason: Pain, severe (8-10) Last Admin: 08/29/18 00:03 Dose: 30 mg Levothyroxine Sodium (Synthroid) 100 mcg PO DAILY@0630 [facility] Last Admin: 08/29/18 05:46 Dose: 100 mcg Lidocaine (Lidoderm) 1 ea TD DAILY [facility] Last Admin: 08/29/18 11:06 Dose: 1 ea Morphine Sulfate (Morphine) 2 mg IVP Q4 PRN PRN Reason: Pain, severe (8-10) Last Admin: 08/29/18 14:23 Dose: 2 mg Oxycodone/Acetaminophen (Percocet 5/325 Mg Tab) 1 tab PO Q4 PRN PRN Reason: Pain, moderate (4-7) Stop: 08/31/18 20:18 Last Admin: 08/29/18 16:27 Dose: 1 tab Pantoprazole Sodium (Protonix Ec Tab) 40 mg PO DAILY [facility] Last Admin: 08/29/18 09:18 Dose: 40 mg - Labs Labs: 08/29/18 06:35 08/29/18 06:35 Attending/Attestation - Attestation I have personally seen and examined this patient.: Yes I have fully participated in the care of the patient.: Yes I have reviewed all pertinent clinical information, including history, physical exam and plan: Yes Notes (Text): CT of L Spine Findings most compatible discitis osteomyelitis at L1-2 and potentially at L2-3 as well. Epidural abscess is not excluded at anterior epidural space at this level and follow-up MRI is advised with without gadolinium for greater soft tissue resolution. Limited abscess is questioned at the left and right lateral epidural as well as anterior epidural soft tissues which trace enhancement is suspected. Lack of preliminary CT without contrast limits evaluation of potential contrast enhancement. Limited grade 1 spondylolisthesis L1-2. Discitis/Osteomyelitis at L1-L2, L2-L3 r/o Epidural Abscess Active of IVDU Hep C + Hypothyroidism - Pt has low back pain, no neuro deficit, no saddle anesthesia, voiding freely - MRI of the L spine with Gadolinium - Neurosurgery consulted- Dr Lang - rec IR consult , per IR - no intervention -cont IV Zosyn and Vanco - Pain mgt -Echo : no vegetation - Blood c/s -ID consult -cont Levothyroxine
[2018-08-29] MEDS: Lidocaine 5% Patch TD SCH (11:06)
--- NOTE | 2018-08-29 16:04 | CARD ---
APPROVED REPORT Date of service: 08/29/2018 EXAM: Two-dimensional and M-mode echocardiogram with Doppler and color Doppler. Other Information Quality : GoodRhythm : NSR INDICATION Infection:Subacute bacterial endocarditis 2D DIMENSIONS IVSd1.20 (0.7-1.1cm)LVDd3.83 (3.9-5.9cm) LVOT Diameter2.17 (1.8-2.4cm)PWd1.08 (0.7-1.1cm) IVSs1.37 (0.8-1.2cm)LVDs2.81 (2.5-4.0cm) FS (%) 26.5 %PWs1.23 (0.8-1.2cm) M-Mode DIMENSIONS Left Atrium (MM)4.76 (2.5-4.0cm)IVSd1.09 (0.7-1.1cm) Aortic Root2.74 (2.2-3.7cm)LVDd5.12 (4.0-5.6cm) Aortic Cusp Exc.1.97 (1.5-2.0cm)PWd0.97 (0.7-1.1cm) IVSs1.59 cmFS (%) 44 % LVDs2.85 (2.0-3.8cm)PWs1.50 cm Aortic Valve AoV Peak Cahezgtd970.6cm/sAoV VTI30.4cmAO Peak GR.9mmHg LVOT Peak Uqgiafnj89.3cm/sLVOT VTI21.19cmAO Mean GR.5mmHg PEGGY (VMAX)1.45lr5PPG (VTI)1.26cm2 Mitral Valve MV E Mmgutayu81.3cm/sMV DECEL [id number] A Tlcjsvqs53.2cm/s MV MXU69gnF/A ratio1.3MVA (PHT)3.90cm2 TDI Lateral E' Peak V13.28cm/sMedial E' Peak V10.76cm/sE/Lateral E'6.1 E/Medial E'7.6 LEFT VENTRICLE The left ventricle is normal size. There is normal left ventricular wall thickness. The left ventricular systolic function is normal. The estimated ejection fraction is 60-65% No regional wall motion abnormalities noted.. The left ventricular diastolic function is normal. No left ventricle thrombus noted on this study. There is no ventricular septal defect visualized. There is no left ventricular aneurysm. There is no mass noted in the left ventricle. RIGHT VENTRICLE The right ventricle is normal size. There is normal right ventricular wall thickness. The right ventricular systolic function is normal. ATRIA The left atrium is mildly dilated. The right atrium size is normal. The interatrial septum is intact with no evidence for an atrial septal defect. AORTIC VALVE The aortic valve is normal in structure. No aortic regurgitation is present. There is no aortic valvular stenosis. There is no aortic valvular vegetation. MITRAL VALVE The mitral valve is normal in structure. There is no evidence of mitral valve prolapse. There is no mitral valve stenosis. There is no mitral valve regurgitation noted. TRICUSPID VALVE The tricuspid valve is normal in structure. There is no tricuspid valve regurgitation noted. There is no tricuspid valve prolapse or vegetation. There is no tricuspid valve stenosis. PULMONIC VALVE The pulmonary valve is normal in structure. There is no pulmonic valvular regurgitation. There is no pulmonic valvular stenosis. GREAT VESSELS The aortic root is normal in size. The ascending aorta is normal in size. The pulmonary artery is normal. The IVC is normal in size and collapses >50% with inspiration. PERICARDIAL EFFUSION There is no pericardial effusion. There is no pleural effusion. <Conclusion> Technically difficult study The estimated ejection fraction is 60-65% The left ventricular diastolic function is normal. The left atrium is mildly dilated. There is no tricuspid valve regurgitation noted. No evidence of endocarditis on this transthorasic echocardiogram. Correlate clinically.
[2018-08-29] MEDS: Oxycodone/Acetaminophen 5/325 mg Tab PO PRN ×2 (16:27→22:27)
[2018-08-30] MEDS: Piperacillin/Tazobact 3.375 GM in Sodium Chloride 0.9% 100 ML IVPB SCH ×4 (04:11→23:00)
[2018-08-30] MEDS: Levothyroxine 100 MCG TAB PO SCH (05:36)
[2018-08-30 06:33] LABS: BASO % 0.4 % (0.0-2.0); EOS % 0.3 % (0.0-4.0); HEMOGLOBIN 13.4 g/dL (12.0-18.0); LYMPH # 0.9 K/uL (1.0-4.3); LYMPH % 14.4 % (20.0-40.0); MEAN CELL VOLUME 88.8 fl (80.0-94.0); MEAN CORPUSCULAR HEMOGLOBIN 30.4 pg (27.0-31.0); MEAN CORPUSCULAR HGB CONC 34.3 g/dL (33.0-37.0); MEAN PLATELET VOLUME 7.9 fl (7.2-11.7); MONO # 0.5 K/uL (0.0-0.8); MONO % 7.7 % (0.0-10.0); NEUT # 4.7 K/uL (1.8-7.0); NEUT % 77.2 % (50.0-75.0); NRBC % 0.2 % (0.0-0.0); RBC 4.39 Mil/uL (4.40-5.90); RED CELL DISTRIBUTION WIDTH 16.5 % (11.5-14.5); WHITE BLOOD COUNT 6.1 K/uL (4.8-10.8)
[2018-08-30 06:42] LABS: ALB/GLOB RATIO 0.7 (1.0-2.1); ALBUMIN 3.6 g/dL (3.5-5.0); ALT/SGPT 28 U/L (21-72); AST/SGOT 60 U/L (17-59); BLOOD UREA NITROGEN 13 mg/dl (9-20); CALCIUM 8.9 mg/dL (8.4-10.2); GFR NON-AFRICAN AMERICAN > 60
--- NOTE | 2018-08-30 08:01 | CP.PCM.PN ---
<Trinidad Olmstead - Last Filed: 08/30/18 15:45> Subjective - Date & Time of Evaluation Date of Evaluation: 08/30/18 Time of Evaluation: 08:00 - Subjective Subjective: Pt seen and examined at bedside. Reports back pain persistant B/L sciatic pain. Denies incontinence, saddle anesthesia. Has been able to ambulate to use the restroom. Denies fever, chills, nausea or vomiting. Objective - Vital Signs/Intake and Output Vital Signs (last 24 hours): Temp Pulse Resp BP Pulse Ox 98.7 F 89 20 148/83 95 08/29/18 23:58 08/29/18 23:58 08/29/18 23:58 08/29/18 23:58 08/29/18 23:58 - Medications Medications: Current Medications Docusate Sodium (Colace) 100 mg PO BID [facility] Last Admin: 08/29/18 18:20 Dose: Not Given Piperacillin Sod/Tazobactam (Sod 3.375 gm/ Sodium Chloride) 100 mls @ 100 mls/hr IVPB Q6 [facility]; Protocol Last Admin: 08/30/18 04:11 Dose: 100 mls/hr Vancomycin HCl 1,500 mg/ (Sodium Chloride) 500 mls @ 333.333 mls/hr IVPB Q12H [facility]; Protocol Ibuprofen (Motrin Tab) 600 mg PO Q6 PRN PRN Reason: Pain, Mild (1-3) Ketorolac Tromethamine (Toradol) 15 mg IVP Q6 PRN PRN Reason: Pain, moderate (4-7) Last Admin: 08/29/18 05:44 Dose: 15 mg Ketorolac Tromethamine (Toradol) 30 mg IVP Q6 PRN PRN Reason: Pain, severe (8-10) Last Admin: 08/29/18 23:35 Dose: 30 mg Levothyroxine Sodium (Synthroid) 100 mcg PO DAILY@0630 [facility] Last Admin: 08/30/18 05:36 Dose: 100 mcg Lidocaine (Lidoderm) 1 ea TD DAILY [facility] Last Admin: 08/29/18 11:06 Dose: 1 ea Morphine Sulfate (Morphine) 2 mg IVP Q4 PRN PRN Reason: Pain, severe (8-10) Last Admin: 08/29/18 14:23 Dose: 2 mg Oxycodone/Acetaminophen (Percocet 5/325 Mg Tab) 1 tab PO Q4 PRN PRN Reason: Pain, moderate (4-7) Stop: 08/31/18 20:18 Last Admin: 08/29/18 22:27 Dose: 1 tab Pantoprazole Sodium (Protonix Ec Tab) 40 mg PO DAILY [facility] Last Admin: 08/29/18 09:18 Dose: 40 mg - Labs Labs: 08/30/18 05:45 08/30/18 05:45 - Constitutional Appears: Non-toxic, No Acute Distress - Head Exam Head Exam: ATRAUMATIC, NORMAL INSPECTION, NORMOCEPHALIC - Eye Exam Eye Exam: EOMI - ENT Exam ENT Exam: Mucous Membranes Moist - Respiratory Exam Respiratory Exam: Clear to Ausculation Bilateral. absent: Rales, Rhonchi, Wheezes - Cardiovascular Exam Cardiovascular Exam: RRR, +S1, +S2 - GI/Abdominal Exam GI & Abdominal Exam: Soft, Normal Bowel Sounds. absent: Tenderness - Extremities Exam Extremities Exam: Normal Inspection - Back Exam Additional comments: Lumbosacral tenderness to palpation, + straight leg raise, hyperpigmentation B/L LE - Neurological Exam Neurological Exam: Alert, Awake, Oriented x3 Additional comments: Strength and sensation 5/5 UE and LE Assessment and Plan - Assessment and Plan (Free Text) Assessment: 42 y/o M with significant PMH of IVDA & Hepatitis C presented to the ED c/o 2 months of vague lower back & b/l hip pain some worsening b/l leg weakness. Lumbar spine x-ray showed likely Osteomyelitis. -Lower back & b/l hip pain -Likely due to Osteomyelitis, discitis -MRI lumbar spine- prelim- severe osteo L1-L2 with discitis, labeled L2 L3 on the CT scan, bulging discs w. foraminal stenosis -Lumbar spine CT: Discitis osteomylitis at L1-2 and potentionally L2-L3. Epidural abscess nor exlcuded and MRI w/o parvez advised for better resolution. Spondylolisthesis L1-L2. -Lumbar spine x-ray: Findings most likely represent discitis osteomyelitis at L2-L3 level with partial collapse of L2 segment & retropulsion for posterior superior corner. There is also slight posterior subluzation of L1 over L2. -Vanco 1gm Q12 & zosyn 3.375 Q6, Vanc trough 5.1 -C/w pain med regimen as needed- morphine, lidoderm, percocet -Blood cx no growth @24hrs, ESR 67 -Neuro surgery consulted: Dr. Lang -IR consulted- determined no intervention -Fu AM labs -IVDA -ID consulted- Dr. Schrader- f/u reccs -HIV negative, U tox + Opiates and benzodiazepines -Echo EF 60-65% no evidence of endocarditis -Hypothyroidism -Synthroid 100mcg -F/u TSH -Hep C -Hepatitic C antibody positive 03/2018 -F/u hepatitis panel Diet -Heart healthy DVT prophylaxis -SCD <Kely Coughlin Purnima - Last Filed: 08/30/18 17:21> Objective - Vital Signs/Intake and Output Vital Signs (last 24 hours): Temp Pulse Resp BP Pulse Ox 97.8 F 83 19 156/91 H 96 08/30/18 16:02 08/30/18 16:02 08/30/18 16:02 08/30/18 16:02 08/30/18 16:02 - Medications Medications: Current Medications Docusate Sodium (Colace) 100 mg PO BID [facility] Last Admin: 08/30/18 16:43 Dose: 100 mg Piperacillin Sod/Tazobactam (Sod 3.375 gm/ Sodium Chloride) 100 mls @ 100 mls/hr IVPB Q6 [facility]; Protocol Last Admin: 08/30/18 16:50 Dose: 100 mls/hr Vancomycin HCl 1,500 mg/ (Sodium Chloride) 500 mls @ 333.333 mls/hr IVPB Q12H [facility]; Protocol Last Admin: 08/30/18 12:50 Dose: 333.333 mls/hr Ibuprofen (Motrin Tab) 600 mg PO Q6 PRN PRN Reason: Pain, Mild (1-3) Ketorolac Tromethamine (Toradol) 15 mg IVP Q6 PRN PRN Reason: Pain, moderate (4-7) Last Admin: 08/30/18 15:09 Dose: 15 mg Ketorolac Tromethamine (Toradol) 30 mg IVP Q6 PRN PRN Reason: Pain, severe (8-10) Last Admin: 08/30/18 11:33 Dose: 30 mg Levothyroxine Sodium (Synthroid) 100 mcg PO DAILY@0630 [facility] Last Admin: 08/30/18 05:36 Dose: 100 mcg Lidocaine (Lidoderm) 1 ea TD DAILY [facility] Last Admin: 08/30/18 10:02 Dose: 1 ea Morphine Sulfate (Morphine) 2 mg IVP Q4 PRN PRN Reason: Pain, severe (8-10) Last Admin: 08/29/18 14:23 Dose: 2 mg Oxycodone/Acetaminophen (Percocet 5/325 Mg Tab) 1 tab PO Q4 PRN PRN Reason: Pain, moderate (4-7) Stop: 08/31/18 20:18 Last Admin: 08/29/18 22:27 Dose: 1 tab Pantoprazole Sodium (Protonix Ec Tab) 40 mg PO DAILY [facility] Last Admin: 08/30/18 10:03 Dose: 40 mg - Labs Labs: 08/30/18 05:45 08/30/18 05:45 Attending/Attestation - Attestation I have personally seen and examined this patient.: Yes I have fully participated in the care of the patient.: Yes I have reviewed all pertinent clinical information, including history, physical exam and plan: Yes Notes (Text): Discitis/Osteomyelitis at L1-L2, L2-L3 No Epidural Abscess on MRI Active of IVDU Hep C + Hypothyroidism - Pt has low back pain, no neuro deficit, no saddle anesthesia, voiding freely, + BM - MRI of the L spine with Gadolinium showed Osteo/Discitis , no mention of abscess - Neurosurgery consulted- Dr Lang - rec IR consult , per IR - no intervention - Dr Alvarez ( [facility] ) came to eval pt today - no surgical intervention, rec TLSO Brace -cont IV Zosyn and Vanco, Vanco dose increased to 1500mg q 12 - Pain mgt- Percocet -Echo : no vegetation - Blood c/s : negative so far -ID consulted -cont Levothyroxine 08/30/18 17:20
[2018-08-30] MEDS: Lidocaine 5% Patch TD SCH (10:02)
[2018-08-30] MEDS: Pantoprazole 40 mg EC Tab PO SCH (10:03)
--- NOTE | 2018-08-30 11:42 | CP.PCM.PN ---
Subjective - Date & Time of Evaluation Date of Evaluation: 08/30/18 Time of Evaluation: 08:00 - Subjective Subjective: 42 y/o M with significant PMH of IVDA & Hepatitis C is c/o 2 months of vague lower back & b/l hip pain, 8/10 in nature. The pain radiates to the legs, and has caused some b/l leg weakness. Work up revealed discitis / possible epidural abscess however TTE was negative MRI pending IV antibiotics in progress Neurosurgery consult is pending Objective - Vital Signs/Intake and Output Vital Signs (last 24 hours): Temp Pulse Resp BP Pulse Ox 98.0 F 71 20 150/94 H 97 08/30/18 08:30 08/30/18 08:30 08/30/18 08:30 08/30/18 08:30 08/30/18 08:30 - Medications Medications: Current Medications Docusate Sodium (Colace) 100 mg PO BID [facility] Last Admin: 08/30/18 10:02 Dose: 100 mg Piperacillin Sod/Tazobactam (Sod 3.375 gm/ Sodium Chloride) 100 mls @ 100 mls/hr IVPB Q6 [facility]; Protocol Last Admin: 08/30/18 10:03 Dose: 100 mls/hr Vancomycin HCl 1,500 mg/ (Sodium Chloride) 500 mls @ 333.333 mls/hr IVPB Q12H [facility]; Protocol Ibuprofen (Motrin Tab) 600 mg PO Q6 PRN PRN Reason: Pain, Mild (1-3) Ketorolac Tromethamine (Toradol) 15 mg IVP Q6 PRN PRN Reason: Pain, moderate (4-7) Last Admin: 08/29/18 05:44 Dose: 15 mg Ketorolac Tromethamine (Toradol) 30 mg IVP Q6 PRN PRN Reason: Pain, severe (8-10) Last Admin: 08/30/18 11:33 Dose: 30 mg Levothyroxine Sodium (Synthroid) 100 mcg PO DAILY@0630 [facility] Last Admin: 08/30/18 05:36 Dose: 100 mcg Lidocaine (Lidoderm) 1 ea TD DAILY [facility] Last Admin: 08/30/18 10:02 Dose: 1 ea Morphine Sulfate (Morphine) 2 mg IVP Q4 PRN PRN Reason: Pain, severe (8-10) Last Admin: 08/29/18 14:23 Dose: 2 mg Oxycodone/Acetaminophen (Percocet 5/325 Mg Tab) 1 tab PO Q4 PRN PRN Reason: Pain, moderate (4-7) Stop: 08/31/18 20:18 Last Admin: 08/29/18 22:27 Dose: 1 tab Pantoprazole Sodium (Protonix Ec Tab) 40 mg PO DAILY [facility] Last Admin: 08/30/18 10:03 Dose: 40 mg - Labs Labs: 08/30/18 05:45 08/30/18 05:45 - Constitutional Appears: Non-toxic, Chronically Ill - Head Exam Head Exam: ATRAUMATIC, NORMAL INSPECTION, NORMOCEPHALIC - Eye Exam Eye Exam: EOMI, Normal appearance, PERRL Pupil Exam: NORMAL ACCOMODATION, PERRL - ENT Exam ENT Exam: Mucous Membranes Moist, Normal Exam - Neck Exam Neck Exam: Full ROM, Normal Inspection. absent: Lymphadenopathy - Respiratory Exam Respiratory Exam: Clear to Ausculation Bilateral, NORMAL BREATHING PATTERN - Cardiovascular Exam Cardiovascular Exam: REGULAR RHYTHM, +S1, +S2. absent: Murmur - GI/Abdominal Exam GI & Abdominal Exam: Soft, Normal Bowel Sounds. absent: Tenderness - Rectal Exam Rectal Exam: Deferred - Exam Exam: NORMAL INSPECTION - Extremities Exam Extremities Exam: Full ROM, Normal Capillary Refill, Normal Inspection. absent: Joint Swelling, Pedal Edema - Back Exam Back Exam: NORMAL INSPECTION - Neurological Exam Neurological Exam: Alert, Awake, CN II-XII Intact, Normal Gait, Oriented x3 - Psychiatric Exam Psychiatric exam: Normal Affect, Normal Mood - Skin Skin Exam: Dry, Intact, Normal Color, Warm Assessment and Plan (1) Discitis Status: Acute (2) Intractable low back pain Status: Acute - Assessment and Plan (Free Text) Assessment: cont IV antibiotics neurosurg eval in progress may need drainage cont IV rx empiric for 6-8 weeks
--- NOTE | 2018-08-30 12:44 | CP.PCM.PN ---
Subjective - Date & Time of Evaluation Date of Evaluation: 08/30/18 Time of Evaluation: 12:42 - Subjective Subjective: SPINE MRI reviewed. Shows involvement as per CT. Some retropulsion but no signif deformity of thecal sack. As pt is intact neurologically, will order a TLSO to be worn when OOB. Can mobilize as pain allows. No need for f/u MRI study for at least 4-6 months unless he changes clinically. Objective - Vital Signs/Intake and Output Vital Signs (last 24 hours): Temp Pulse Resp BP Pulse Ox 98.0 F 71 20 150/94 H 97 08/30/18 08:30 08/30/18 08:30 08/30/18 08:30 08/30/18 08:30 08/30/18 08:30 - Medications Medications: Current Medications Docusate Sodium (Colace) 100 mg PO BID [facility] Last Admin: 08/30/18 10:02 Dose: 100 mg Piperacillin Sod/Tazobactam (Sod 3.375 gm/ Sodium Chloride) 100 mls @ 100 mls/hr IVPB Q6 [facility]; Protocol Last Admin: 08/30/18 10:03 Dose: 100 mls/hr Vancomycin HCl 1,500 mg/ (Sodium Chloride) 500 mls @ 333.333 mls/hr IVPB Q12H [facility]; Protocol Ibuprofen (Motrin Tab) 600 mg PO Q6 PRN PRN Reason: Pain, Mild (1-3) Ketorolac Tromethamine (Toradol) 15 mg IVP Q6 PRN PRN Reason: Pain, moderate (4-7) Last Admin: 08/29/18 05:44 Dose: 15 mg Ketorolac Tromethamine (Toradol) 30 mg IVP Q6 PRN PRN Reason: Pain, severe (8-10) Last Admin: 08/30/18 11:33 Dose: 30 mg Levothyroxine Sodium (Synthroid) 100 mcg PO DAILY@0630 [facility] Last Admin: 08/30/18 05:36 Dose: 100 mcg Lidocaine (Lidoderm) 1 ea TD DAILY [facility] Last Admin: 08/30/18 10:02 Dose: 1 ea Morphine Sulfate (Morphine) 2 mg IVP Q4 PRN PRN Reason: Pain, severe (8-10) Last Admin: 08/29/18 14:23 Dose: 2 mg Oxycodone/Acetaminophen (Percocet 5/325 Mg Tab) 1 tab PO Q4 PRN PRN Reason: Pain, moderate (4-7) Stop: 08/31/18 20:18 Last Admin: 08/29/18 22:27 Dose: 1 tab Pantoprazole Sodium (Protonix Ec Tab) 40 mg PO DAILY [facility] Last Admin: 08/30/18 10:03 Dose: 40 mg - Labs Labs: 08/30/18 05:45 08/30/18 05:45
--- NOTE | 2018-08-30 16:13 | MRI ---
Date of service: 08/29/2018 PROCEDURE: MR LUMBAR SPINE WITHOUT CONTRAST HISTORY: low back pain; acute discitis; IVDA COMPARISON: Lumbar spine CT with contrast 08/28/2018. TECHNIQUE: Multiecho multiplanar sequences were performed through the lumbar spine without the use of intravenous contrast. FINDINGS: Transitional L5 vertebral body noted. Minimal grade 1 spondylolisthesis L1-2 again evident with marked disruption of the superior and inferior endplates at L1-2 also reiterated. Fluid is seen at the intervening intervertebral disc space here causing the intervertebral discs 2 bulge posteriorly as well as a portion of the upper endplate of L2. Heterogeneous signal within this intervertebral disc space is also noted and is highly suspicious for discitis osteomyelitis. Aspiration of the intervertebral disc space is advised if not already performed for further characterization. Trace anterior epidural abscess immediately cephalad to this level is not clearly evident but with difficult to completely exclude. Moderate to severe central canal stenosis results from bulging of the intervertebral disc space and likely fragmentation of the superior endplate L2 posteriorly causing impingement of descending nerve roots. This appears to be well below the conus medullaris which terminates at the upper portion of the L1 vertebral body. Further, nonspecific fluid is seen at the L2-3 disc interspace which is surrounded by intact endplates immediately above and below it. Edema in the anterior superior portion of the L3 vertebral body raises question of potential osteomyelitis discitis at L2-3 however. In addition, abnormal endplate changes surrounding L4-5 with borderline fluid in the disc may indicate additional discitis osteomyelitis here although no definite prevertebral fluid collection is identified. Contrast MRI is recommended once again for better characterization of these latter 2 suspicious levels. Mild prevertebral fluid/reaction is seen anterior to L1 and L2 as well as at L3 and minimally anterior potentially to the upper endplate of L4. T12-L1: No disc herniation, spinal canal stenosis or neural foraminal narrowing. Minimal posterior disc bulge identified. L1-2: Please see discussion above immediately under the title "findings". L2-3: As mentioned above, trace fluid is seen at the central intervertebral disc space which is nonspecific and similar to that incidentally seen at T11-12, both of which are surrounded by intact endplates. Discitis here is not necessarily favored but is difficult to completely exclude given the extensive involvement of the L2 vertebral body with osteomyelitis. Limited disc osteophyte complex is appreciated with moderate facet joint degenerative changes causing borderline central canal stenosis and mild bilateral neural foraminal stenoses. No disc herniation. L3-4: No disc herniation. Moderate facet joint degenerative changes are identified without central canal stenosis. No significant neural foraminal stenosis. L4-5: Limited posterior and lateral disc bulging is appreciated bilaterally with no significant central canal stenosis. Moderate facet joint degenerative changes are identified with borderline bilateral neural foraminal stenosis. No disc herniation L5-S1: No disc herniation, spinal canal stenosis or neural foraminal narrowing. OTHER FINDINGS: None. IMPRESSION: Fluid within the L1-2 intervertebral disc space with destruction of the surrounding endplates at L1-2, fragmentation of the upper endplate of L2 and extensive edema within the L1 and L2 vertebral bodies is highly suggestive of discitis osteomyelitis. Generalized posterior disc bulging involving limited upper L2 fragments into the epidural space causes a moderate to severe central canal stenosis. Prevertebral fluid is seen anterior to L1 and L2 and likely L3 and upper endplate of L4. Further, degenerative versus discitis osteomyelitis related signal changes at L2-3 and L4-5 are difficult to differentiate given lack of intravenous gadolinium, which is recommended in follow-up MRI for added characterization at these levels.
--- NOTE | 2018-08-30 23:36 | CP.PCM.CON ---
History of Present Illness - History of Present Illness History of Present Illness: 42 y/o M with significant PMH of IVDA & Hepatitis C is c/o 2 months of vague lower back & b/l hip pain, 8/10 in nature. The pain radiates to the legs, and has caused some b/l leg weakness. 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), 4-5 cigarettes QD>20yrs, denies etOH use Review of Systems - Review of Systems All systems: reviewed and no additional remarkable complaints except - Constitutional Constitutional: As Per HPI - EENT Eyes: absent: As Per HPI, Blind Spots, Blurred Vision, Change in Vision, Decreased Night Vision, Diplopia, Discharge, Dry Eye, Exophthalmos, Floaters, Irritation, Itchy Eyes, Loss of Peripheral Vision, Pain, Photophobia, Requires Corrective Lenses, Sees Flashes, Spots in Vision, Tunnel Vision, Other Visual Disturbances, Loss of Vision, Other Ears: absent: As Per HPI, Decreased Hearing, Ear Discharge, Ear Pain, Tinnitus, Abnormal Hearing, Disequilibrium, Dizziness, Other Nose/Mouth/Throat: absent: As Per HPI, Epistaxis, Nasal Congestion, Nasal Discharge, Nasal Obstruction, Nasal Trauma, Nose Pain, Post Nasal Drip, Sinus Pain, Sinus Pressure, Bleeding Gums, Change in Voice, Dental Pain, Dry Mouth, Dysphagia, Halitosis, Hoarsness, Lip Swelling, Mouth Lesions, Mouth Pain, Odynop hagia, Sore Throat, Throat Swelling, Tongue Swelling, Facial Pain, Neck Pain, Neck Mass, Other - Cardiovascular Cardiovascular: absent: As Per HPI, Acrocyanosis, Chest Pain, Chest Pain at Rest, Chest Pain with Activity, Claudication, Diaphoresis, Dyspnea, Dyspnea on Exertion, Edema, Irregular Heart Rhythm, Pain Radiating to Arm/Neck/Jaw, Leg Edema, Leg Ulcers, Lightheadedness, Orthopnea, Palpitations, Paroxysmal Nocturnal Dyspnea, Pedal Edema, Radiating Pain, Rapid Heart Rate, Slow Heart Rate, Syncope, Other - Respiratory Respiratory: absent: As Per HPI, Cough, Dyspnea, Hemoptysis, Dyspnea on Exertion, Wheezing, Snoring, Stridor, Pain on Inspiration, Chest Congestion, Excessive Mucous Production, Change in Mucous Color, Pain with Coughing, Other - Gastrointestinal Gastrointestinal: absent: As Per HPI, Abdominal Pain, Belching, Bloating, Change in Bowel Habits, Change in Stool Character, Coffee Ground Emesis, Constipation, Cramping, Diarrhea, Dyspepsia, Dysphagia, Early Satiety, Excessive Flatus, Fecal Incontinence, Heartburn, Hematemesis, Hematochezia, Loose Stools, Melena, Nausea, Odynophagia, Temesmus, Vomiting, Other - Genitourinary Genitourinary: absent: As Per HPI, Change in Urinary Stream, Difficulty Urinating, Dysuria, Flank Pain, Hematuria, Pyuria, Nocturia, Urinary Incontinence, Urinary Frequency, Urinary Hesitance, Urinary Urgency, Voiding Freq/Small Amts, Freq UTI, Hx Renal/Bladder Calculi, Hx /Renal Surgery, Bladder Distension, Other - Musculoskeletal Musculoskeletal: As Per HPI - Integumentary Integumentary: absent: As Per HPI, Acne, Alopecia, Bleeding Lesions, Change in Hair, Change in Nails, Change in Pigmentation, Changing Lesions, Dry Skin, Erythema, Furuncle, Hirsutism, Lesions, New Lesions, Non-Healing Lesions, Phot osensitivity, Pruritus, Rash, Skin Pain, Skin Ulcer, Sores, Striae, Swelling, Unusual Bruising, Wounds, Jaundice, Other - Neurological Neurological: As Per HPI, Abnormal Gait - Psychiatric Psychiatric: As Per HPI - Endocrine Endocrine: absent: As Per HPI, Change in Body Appearance, Change in Libido, Cold Intolorance, Deepening of Voice, Excessive Sweating, Fatigue, Flushing, Heat Intolorance, Increase in Ring/Shoe/Hat Size, Palpitations, Polydipsia, Polyphagia, Polyuria, Other Past Patient History - Infectious Disease Hx of Infectious Diseases: None - Past Medical History & Family History Past Medical History?: Yes - Past Social History Smoking Status: Light Smoker < 10 Cigarettes Daily - CARDIAC Hx Cardiac Disorders: Yes - PULMONARY Hx Respiratory Disorders: No - NEUROLOGICAL Hx Neurological Disorder: No - HEENT Hx HEENT Problems: No - RENAL Hx Chronic Kidney Disease: No - ENDOCRINE/METABOLIC Hx Endocrine Disorders: Yes Hx Hypothyroidism: Yes - HEMATOLOGICAL/ONCOLOGICAL Hx Blood Disorders: No Hx AIDS: No Hx Human Immunodeficiency Virus (HIV): No - INTEGUMENTARY Hx Dermatological Problems: No - MUSCULOSKELETAL/RHEUMATOLOGICAL Hx Musculoskeletal Disorders: Yes Hx Back Pain: Yes Hx Falls: Yes - GASTROINTESTINAL Hx Gastrointestinal Disorders: No Hx Pancreatitis: Yes - GENITOURINARY/GYNECOLOGICAL Hx Genitourinary Disorders: No - PSYCHIATRIC Hx Psychophysiologic Disorder: Yes Hx Anxiety: Yes Hx Depression: Yes Hx Substance Use: Yes - SURGICAL HISTORY Hx Surgeries: Yes Hx Herniorrhaphy: Yes Other/Comment: rt. eye sx. - ANESTHESIA Hx Anesthesia: No Hx Anesthesia Reactions: No Hx Malignant Hyperthermia: No Meds Allergies/Adverse Reactions: Allergies Allergy/AdvReac Type Severity Reaction Status Date / Time No Known Allergies Allergy Verified 07/15/18 23:44 - Medications Medications: Current Medications Docusate Sodium (Colace) 100 mg PO BID [facility] Last Admin: 08/29/18 18:20 Dose: Not Given Piperacillin Sod/Tazobactam (Sod 3.375 gm/ Sodium Chloride) 100 mls @ 100 mls/hr IVPB Q6 [facility]; Protocol Last Admin: 08/29/18 16:28 Dose: 100 mls/hr Vancomycin HCl 1 gm/ Sodium (Chloride) 250 mls @ 166.667 mls/hr IVPB Q12 [facility]; Protocol Last Admin: 08/29/18 22:28 Dose: 166.667 mls/hr Ibuprofen (Motrin Tab) 600 mg PO Q6 PRN PRN Reason: Pain, Mild (1-3) Ketorolac Tromethamine (Toradol) 15 mg IVP Q6 PRN PRN Reason: Pain, moderate (4-7) Last Admin: 08/29/18 05:44 Dose: 15 mg Ketorolac Tromethamine (Toradol) 30 mg IVP Q6 PRN PRN Reason: Pain, severe (8-10) Last Admin: 08/29/18 18:35 Dose: 30 mg Levothyroxine Sodium (Synthroid) 100 mcg PO DAILY@0630 [facility] Last Admin: 08/29/18 05:46 Dose: 100 mcg Lidocaine (Lidoderm) 1 ea TD DAILY [facility] Last Admin: 08/29/18 11:06 Dose: 1 ea Morphine Sulfate (Morphine) 2 mg IVP Q4 PRN PRN Reason: Pain, severe (8-10) Last Admin: 08/29/18 14:23 Dose: 2 mg Oxycodone/Acetaminophen (Percocet 5/325 Mg Tab) 1 tab PO Q4 PRN PRN Reason: Pain, moderate (4-7) Stop: 08/31/18 20:18 Last Admin: 08/29/18 22:27 Dose: 1 tab Pantoprazole Sodium (Protonix Ec Tab) 40 mg PO DAILY [facility] Last Admin: 08/29/18 09:18 Dose: 40 mg Physical Exam - Constitutional Appears: Non-toxic, No Acute Distress, Chronically Ill - Head Exam Head Exam: ATRAUMATIC, NORMAL INSPECTION, NORMOCEPHALIC - Eye Exam Eye Exam: EOMI, Normal appearance, PERRL Pupil Exam: NORMAL ACCOMODATION, PERRL - ENT Exam ENT Exam: Mucous Membranes Moist, Normal Exam - Neck Exam Neck exam: Positive for: Normal Inspection - Respiratory Exam Respiratory Exam: Clear to Auscultation Bilateral, NORMAL BREATHING PATTERN - Cardiovascular Exam Cardiovascular Exam: REGULAR RHYTHM - GI/Abdominal Exam GI & Abdominal Exam: Normal Bowel Sounds, Soft. absent: Tenderness - Rectal Exam Rectal Exam: Deferred - Exam Exam: NORMAL INSPECTION - Extremities Exam Extremities exam: Positive for: normal inspection - Back Exam Back exam: paraspinal tenderness, vertebral tenderness. absent: NORMAL INSPECTION - Neurological Exam Neurological exam: Alert, CN II-XII Intact, Oriented x3, Reflexes Normal - Psychiatric Exam Psychiatric exam: Depressed - Skin Skin Exam: Dry, Intact, Normal Color, Warm Results - Vital Signs Recent Vital Signs: Last Vital Signs Temp 98 F 08/29/18 16:19 Pulse 71 08/29/18 16:19 Resp 20 08/29/18 16:19 BP 159/92 H 08/29/18 16:19 Pulse Ox 97 08/29/18 16:19 - Labs Result Diagrams: 08/30/18 05:45 08/30/18 05:45 Labs: Laboratory Results - last 24 hr 08/29/18 08/29/18 06:35 06:35 WBC 4.2 L RBC 4.53 Hgb 13.8 Hct 40.7 MCV 89.7 MCH 30.5 MCHC 34.0 RDW 16.3 H Plt Count 109 L MPV 8.2 Neut % (Auto) 65.0 Lymph % (Auto) 24.6 Swift % (Auto) 8.0 Eos % (Auto) 1.7 Baso % (Auto) 0.7 Neut # (Auto) 2.7 Lymph # (Auto) 1.0 Swift # (Auto) 0.3 Eos # (Auto) 0.1 Baso # (Auto) 0.0 Sodium 135 Potassium 4.0 Chloride 103 Carbon Dioxide 25 Anion Gap 11 BUN 12 Creatinine 0.7 L Est GFR ( Amer) > 60 Est GFR (Non-Af Amer) > 60 Random Glucose 100 Calcium 8.3 L Assessment & Plan (1) Discitis Status: Acute (2) Intractable low back pain Status: Acute - Assessment and Plan (Free Text) Assessment: cont rx for discitis 'neurosurg follow up consider drainage if possible check serologies for HIV/Hep will need 6-8 weeks IV antibiotics
[2018-08-31] MEDS: Piperacillin/Tazobact 3.375 GM in Sodium Chloride 0.9% 100 ML IVPB SCH ×4 (05:00→22:25)
[2018-08-31] MEDS: Levothyroxine 100 MCG TAB PO SCH (05:45)
--- NOTE | 2018-08-31 07:06 | CON ---
DATE: 08/29/2018 REASON FOR CONSULTATION: Possible infection, lumbar spine. HISTORY OF PRESENT ILLNESS: The patient is a 42-year-old young gentleman who states that he began to get lower back pain two to three months ago. He just thought it was a lower back strain as he has been helping a friend move furniture. However, it became progressively worse overtime. No loss of bowel and bladder control. No systemic complaints. The patient is primary in the back. He is getting some radiation into the hip joints on each side. He states when he tries to get up and walk, then the pain seems to go down both legs in no particular dermatomal. It just involves the entire leg bilaterally. He was admitted yesterday and x-rays as well as a CAT scan reportedly showed evidence of disk space infected; therefore, he is admitted. PAST MEDICAL HISTORY: Significant for hypothyroidism for which he is on Synthroid. He states he also has problems with his gallbladder and umbilical hernia, but he has not had surgery on either one of those. MEDICATIONS: As listed on the chart. ALLERGIES: HE DENIES ANY MEDICAL ALLERGIES. SOCIAL HISTORY: He has been IV heroine abuser for more than 10 years. Smokes may be half a pack a day. Denies any alcohol use. Denies any positive HIV testing in the past. PHYSICAL EXAMINATION: He is able to lift each leg actively off the stretcher. He has good hip flexor strength bilaterally. Actually, strength is 4+ to 5/5 in all muscle groups tested in each leg. Sensation is intact to light touch throughout as well. No clonus noted. Babinski is equivocal to downgoing. Excellent distal pulses. LABORATORY DATA: He had x-rays and a CAT scan of the lumbar spine done as mentioned. The x-ray would appear to show in terms of judging the last rib and then what appears to be the first transverse process that the loss of disk space and vertebral bodies is at the 2-3 level. This would also fit with where the iliac crest are and that they are almost at the 4-5 disk space level where they normally would be. However, there are some questions about that on the CAT scan and actually, the reading there was that he has a fused 5-1 disk space and all the levels are read according to that. Again, I think that looking the x-ray, one could clearly see what appears to be the 12th rib coming off and then what appears to be a straight transverse process and not a remnant of any kind of rib, so therefore I would look at this at the 2-3 level which would be more fitting with his complaints of pain radiating into the hips and upper thighs. He also has marked changes then that would be the 5-1 joint and may be a little irregularity at the 3-4 level. There appears to be some bony retropulsion towards the canal or calcification. An MRI has been ordered but has not been completed as of yet. IMPRESSION: Diskitis with osteomyelitis at what would appear to be the 2-3 level and possibly changes at 5-1. He appears to have a remnant of a disk at the 1-2 level. Again, if a chest x-ray shows that what we are thinking is L1 is actually T12, then all these levels would be down one. RECOMMENDATION: At this time is to get the MRI that has been ordered but not completed as of yet. I will also consult Interventional Radiology to perform a CT-guided aspiration of that area. The recommendation had been to try and hold off administering antibiotics until Interventional Radiology could perform that, but I see on the chart that he has already been given vancomycin and piperacillin which may contaminate the result some. His platelets are only 109,000, white count is 4.2. The sed rate is 67. Alkaline phosphatase is elevated as one might expect. Urine was negative except for positive opiates on the screen and he did admit to having taken heroin the night before he was admitted. Hopefully, if some type of bacteria could be isolated or he just can to be treated for six to eight weeks with broad spectrum antibiotics, I would treat him with a brace and mobilize him as his pain allows as the natural history is, with proper antibiotic control, this level will just fuse itself overtime and become stable. There is no neurologic evidence at this point of any urgent decompression being necessary, but again we will continue to watch him and review the MRI once it has been completed. Thank you for allowing me to participate in the care of your patient. Amaury Alvarez MD
[2018-08-31] MEDS: Lidocaine 5% Patch TD SCH (08:58)
[2018-08-31] MEDS: Pantoprazole 40 mg EC Tab PO SCH (08:58)
[2018-08-31] MEDS ORDERED: Lidocaine Hydrochloride 5 ML INJ ONE (11:52)
--- NOTE | 2018-08-31 12:05 | PCM.SURG1 ---
Surgeon's Initial Post Op Note - Surgeon's Notes Surgeon: Westley Reese MD International Marketing Coordinator: NONE Type of Anesthesia: Local Pre-Operative Diagnosis: Spine infection Operative Findings: Patent right brachial vein Post-Operative Diagnosis: Spine infection Operation Performed: Single lumen picc placement right arm, 40 cm. Specimen/Specimens Removed: NONE Estimated Blood Loss: EBL {In ML}: 2 Blood Products Given: N/A Drains Used: No Drains Post-Op Condition: Fair Date of Surgery/Procedure: 08/31/18 Time of Surgery/Procedure: 12:00
--- NOTE | 2018-08-31 12:13 | VASCULAR ---
PROCEDURE: Date of procedure: 08/31/2018 Procedure: 1. Placement of a right arm PICC with ultrasound and fluoroscopic guidance, CPT 46279 2. PICC tip confirmation with spot radiograph and is in the superior vena cava Medications: 1 percent lidocaine Total Fluoro time: 4.7 seconds Radiation: 0.75 MGy EBL: 2 cc HISTORY: Infection requiring long-term IV antibiotics TECHNIQUE: Following informed consent and procedure time-out, the patient was placed supine on the interventional table and the right arm prepped and draped in the usual sterile fashion. Ultrasound showed a patent and compressible right brachial vein. After the skin was anesthetized with lidocaine, the brachial vein was accessed with micro micropuncture technique using ultrasound guidance. A guidewire was then advanced under fluoroscopic guidance into the superior vena cava. An image documenting ultrasound guidance for vascular access was permanently saved. The length of the single-lumen 4 Turkish PICC was trimmed to 40 centimeters and advanced through a peel-away sheath. The PICC was position with tip of PICC confirm a spot radiograph the superior vena cava. The PICC was secured to the patient's skin. The PICC was flushed. A biopatch and sterile dressing was applied. IMPRESSION: Placement of a single-lumen 4 Turkish PICC trimmed to 40 centimeters via right brachial vein. The tip of the PICC is confirmed with spot radiograph and is in the superior vena cava.
[2018-08-31 12:38] LABS: HEPATITIS B SURFACE AG Negative (NEGATIVE)
--- NOTE | 2018-08-31 12:49 | CP.PCM.PN ---
<Diana Avalos - Last Filed: 08/31/18 12:45> Subjective - Date & Time of Evaluation Date of Evaluation: 08/31/18 Time of Evaluation: 10:10 - Subjective Subjective: Patient seen and examined at bedside. In no acute distress. Reports back pain persists, alleviated by toradol and lidocaine patch as needed. Patient agrees with plan for PICC line placement for continued IV antibiotics. Reports normal urine and stool output. Able to ambulate to restroom. Denies fevers, chills, nausea, vomiting, weakness or dizziness. Objective - Vital Signs/Intake and Output Vital Signs (last 24 hours): Temp Pulse Resp BP Pulse Ox 98.2 F 64 152/89 H 98 08/31/18 12:09 08/31/18 12:09 08/31/18 12:09 08/31/18 12:09 08/31/18 12:09 - Medications Medications: Current Medications Docusate Sodium (Colace) 100 mg PO BID [facility] Last Admin: 08/31/18 08:58 Dose: 100 mg Piperacillin Sod/Tazobactam (Sod 3.375 gm/ Sodium Chloride) 100 mls @ 100 mls/hr IVPB Q6 [facility]; Protocol Last Admin: 08/31/18 08:59 Dose: 100 mls/hr Vancomycin HCl 1,500 mg/ (Sodium Chloride) 500 mls @ 333.333 mls/hr IVPB Q12H [facility]; Protocol Last Admin: 08/31/18 10:45 Dose: 333.333 mls/hr Ibuprofen (Motrin Tab) 600 mg PO Q6 PRN PRN Reason: Pain, Mild (1-3) Ketorolac Tromethamine (Toradol) 15 mg IVP Q6 PRN PRN Reason: Pain, moderate (4-7) Last Admin: 08/31/18 12:19 Dose: 15 mg Ketorolac Tromethamine (Toradol) 30 mg IVP Q6 PRN PRN Reason: Pain, severe (8-10) Last Admin: 08/31/18 05:43 Dose: 30 mg Levothyroxine Sodium (Synthroid) 150 mcg PO DAILY@0630 [facility] Lidocaine (Lidoderm) 1 ea TD DAILY [facility] Last Admin: 08/31/18 08:58 Dose: 1 ea Morphine Sulfate (Morphine) 2 mg IVP Q4 PRN PRN Reason: Pain, severe (8-10) Last Admin: 08/29/18 14:23 Dose: 2 mg Oxycodone/Acetaminophen (Percocet 5/325 Mg Tab) 1 tab PO Q4 PRN PRN Reason: Pain, moderate (4-7) Stop: 08/31/18 20:18 Last Admin: 08/29/18 22:27 Dose: 1 tab Pantoprazole Sodium (Protonix Ec Tab) 40 mg PO DAILY [facility] Last Admin: 08/31/18 08:58 Dose: 40 mg Ursodiol (Actigall) 300 mg PO TID [facility] Last Admin: 08/31/18 12:18 Dose: 300 mg - Labs Labs: 08/30/18 05:45 08/30/18 05:45 - Constitutional Appears: No Acute Distress - Head Exam Head Exam: ATRAUMATIC, NORMOCEPHALIC - Eye Exam Eye Exam: EOMI - ENT Exam ENT Exam: Mucous Membranes Moist - Respiratory Exam Respiratory Exam: Clear to Ausculation Bilateral, NORMAL BREATHING PATTERN - Cardiovascular Exam Cardiovascular Exam: REGULAR RHYTHM, +S1, +S2 - GI/Abdominal Exam GI & Abdominal Exam: Soft, Normal Bowel Sounds. absent: Tenderness - Extremities Exam Extremities Exam: Full ROM. absent: Pedal Edema - Back Exam Back Exam: tenderness (to palpation of lumbosacral area, positive bilateral straight leg test) - Neurological Exam Neurological Exam: Alert, Awake, Oriented x3 - Psychiatric Exam Psychiatric exam: Normal Affect, Normal Mood - Skin Skin Exam: Dry, Warm (hyperpigmented skin on bilateral LE) Assessment and Plan - Assessment and Plan (Free Text) Assessment: 42 yr old M with significant PMH of IVDA & Hepatitis C presented to the ED with 2 months of lower back & b/l hip pain with associated worsening b/l lower extremity weakness. Lumbar spine MRI resulted highly suggestive of discitis osteomyelitis of L1-L2. Patient going for PICC live today for continued IV antibiotics. 1. Lumbar discitis osteomyelitis -MRI lumbar spine: discitis osteomyelitis of L1-L2, bulging discs with foraminal stenosis (see full report) -Lumbar spine CT: Discitis osteomylitis at L1-2 and potentionally L2-L3. Epidural abscess nor exlcuded and MRI w/o parvez advised for better resolution. Spondylolisthesis L1-L2. -Lumbar spine x-ray: Findings most likely represent discitis osteomyelitis at L2-L3 level with partial collapse of L2 segment & retropulsion for posterior superior corner. There is also slight posterior subluzation of L1 over L2. -Vanco dose increased to 1.5 gm Q12 & zosyn 3.375 Q6, Vanc trough 5.1 on 08/30/18 -continue with pain control : PRN toradol, percocet and lidoderm patch -Blood cx no growth x 48 hrs, ESR 67 -Neuro surgery consulted: Dr. Lang: wear TLSO brace when out of bed, ambulate as tolerated, repeat MRI in 4-6 months (sooner if clinical change) -IR consulted- no IR procedure recommended at this time 2. Hypothyroidism -chronic, uncontrolled -patient reports prior compliance with levothyroxine 100 mcg PO QD -TSH 50 mIU/mL today -levothyroxine dose increased to 150mcg PO QD -f/u repeat TSH in 1 week 3. Thrombocytopenia -chronic, stable -may be secondary to Hep C -will monitor 4. IVDA -ID consulted- Dr. Schrader: Vanco dose increased to 1.5 gm Q12 & zosyn 3.375 Q6, Vanc trough 5.1 on 08/30/18 -HIV negative, U tox + Opiates and benzodiazepines -Echo EF 60-65% no evidence of endocarditis 5. Hep C -Hepatitic C antibody positive 03/2018 -F/u hepatitis panel <Jarrod Corrales D - Last Filed: 08/31/18 14:12> Objective - Vital Signs/Intake and Output Vital Signs (last 24 hours): Temp Pulse Resp BP Pulse Ox 98.2 F 64 19 152/89 H 98 08/31/18 12:09 08/31/18 12:09 08/31/18 12:09 08/31/18 12:09 08/31/18 12:09 - Medications Medications: Current Medications Docusate Sodium (Colace) 100 mg PO BID [facility] Last Admin: 08/31/18 08:58 Dose: 100 mg Piperacillin Sod/Tazobactam (Sod 3.375 gm/ Sodium Chloride) 100 mls @ 100 mls/hr IVPB Q6 [facility]; Protocol Last Admin: 08/31/18 08:59 Dose: 100 mls/hr Vancomycin HCl 1,500 mg/ (Sodium Chloride) 500 mls @ 333.333 mls/hr IVPB Q12H [facility]; Protocol Last Admin: 08/31/18 10:45 Dose: 333.333 mls/hr Ibuprofen (Motrin Tab) 600 mg PO Q6 PRN PRN Reason: Pain, Mild (1-3) Ketorolac Tromethamine (Toradol) 15 mg IVP Q6 PRN PRN Reason: Pain, moderate (4-7) Last Admin: 08/31/18 12:19 Dose: 15 mg Ketorolac Tromethamine (Toradol) 30 mg IVP Q6 PRN PRN Reason: Pain, severe (8-10) Last Admin: 08/31/18 05:43 Dose: 30 mg Levothyroxine Sodium (Synthroid) 150 mcg PO DAILY@0630 [facility] Lidocaine (Lidoderm) 1 ea TD DAILY [facility] Last Admin: 08/31/18 08:58 Dose: 1 ea Morphine Sulfate (Morphine) 2 mg IVP Q4 PRN PRN Reason: Pain, severe (8-10) Last Admin: 08/29/18 14:23 Dose: 2 mg Oxycodone/Acetaminophen (Percocet 5/325 Mg Tab) 1 tab PO Q4 PRN PRN Reason: Pain, moderate (4-7) Stop: 08/31/18 20:18 Last Admin: 08/29/18 22:27 Dose: 1 tab Pantoprazole Sodium (Protonix Ec Tab) 40 mg PO DAILY [facility] Last Admin: 08/31/18 08:58 Dose: 40 mg Ursodiol (Actigall) 300 mg PO TID [facility] Last Admin: 08/31/18 12:18 Dose: 300 mg - Labs Labs: 08/30/18 05:45 08/30/18 05:45 Attending/Attestation - Attestation I have personally seen and examined this patient.: Yes I have fully participated in the care of the patient.: Yes I have reviewed all pertinent clinical information, including history, physical exam and plan: Yes Notes (Text): 08/31/18 14:11 Patient seen and examined with resident. Case discussed and agreed with assessment and plan.
[2018-08-31 13:16] LABS: HEPATITIS A IGM NEGATIVE (NEGATIVE); HEPATITIS B CORE AB NEGATIVE (NEGATIVE)
[2018-08-31 14:48] LABS: HEPATITIS C ANTIBODY REACTIVE (NEGATIVE)
--- NOTE | 2018-08-31 14:55 | CP.PCM.PN ---
Subjective - Date & Time of Evaluation Date of Evaluation: 08/31/18 Time of Evaluation: 07:00 - Subjective Subjective: doing ok c/o pain no fever Objective - Vital Signs/Intake and Output Vital Signs (last 24 hours): Temp Pulse Resp BP Pulse Ox 98.2 F 64 19 152/89 H 98 08/31/18 12:09 08/31/18 12:09 08/31/18 12:09 08/31/18 12:09 08/31/18 12:09 - Medications Medications: Current Medications Docusate Sodium (Colace) 100 mg PO BID [facility] Last Admin: 08/31/18 08:58 Dose: 100 mg Piperacillin Sod/Tazobactam (Sod 3.375 gm/ Sodium Chloride) 100 mls @ 100 mls/hr IVPB Q6 [facility]; Protocol Last Admin: 08/31/18 08:59 Dose: 100 mls/hr Vancomycin HCl 1,500 mg/ (Sodium Chloride) 500 mls @ 333.333 mls/hr IVPB Q12H [facility]; Protocol Last Admin: 08/31/18 10:45 Dose: 333.333 mls/hr Ibuprofen (Motrin Tab) 600 mg PO Q6 PRN PRN Reason: Pain, Mild (1-3) Ketorolac Tromethamine (Toradol) 15 mg IVP Q6 PRN PRN Reason: Pain, moderate (4-7) Last Admin: 08/31/18 12:19 Dose: 15 mg Ketorolac Tromethamine (Toradol) 30 mg IVP Q6 PRN PRN Reason: Pain, severe (8-10) Last Admin: 08/31/18 05:43 Dose: 30 mg Levothyroxine Sodium (Synthroid) 150 mcg PO DAILY@0630 [facility] Lidocaine (Lidoderm) 1 ea TD DAILY [facility] Last Admin: 08/31/18 08:58 Dose: 1 ea Morphine Sulfate (Morphine) 2 mg IVP Q4 PRN PRN Reason: Pain, severe (8-10) Last Admin: 08/29/18 14:23 Dose: 2 mg Oxycodone/Acetaminophen (Percocet 5/325 Mg Tab) 1 tab PO Q4 PRN PRN Reason: Pain, moderate (4-7) Stop: 08/31/18 20:18 Last Admin: 08/29/18 22:27 Dose: 1 tab Pantoprazole Sodium (Protonix Ec Tab) 40 mg PO DAILY [facility] Last Admin: 08/31/18 08:58 Dose: 40 mg Ursodiol (Actigall) 300 mg PO TID [facility] Last Admin: 08/31/18 12:18 Dose: 300 mg - Labs Labs: 08/30/18 05:45 08/30/18 05:45 - Constitutional Appears: No Acute Distress, Chronically Ill - Head Exam Head Exam: ATRAUMATIC, NORMAL INSPECTION, NORMOCEPHALIC - Eye Exam Eye Exam: EOMI, Normal appearance, PERRL Pupil Exam: NORMAL ACCOMODATION, PERRL - ENT Exam ENT Exam: Mucous Membranes Moist, Normal Exam - Neck Exam Neck Exam: Full ROM, Normal Inspection. absent: Lymphadenopathy - Respiratory Exam Respiratory Exam: Clear to Ausculation Bilateral, NORMAL BREATHING PATTERN - Cardiovascular Exam Cardiovascular Exam: REGULAR RHYTHM, +S1, +S2. absent: Murmur - GI/Abdominal Exam GI & Abdominal Exam: Soft, Normal Bowel Sounds. absent: Tenderness - Rectal Exam Rectal Exam: Deferred - Exam Exam: NORMAL INSPECTION - Extremities Exam Extremities Exam: Full ROM, Normal Capillary Refill, Normal Inspection. absent: Joint Swelling, Pedal Edema - Back Exam Back Exam: NORMAL INSPECTION - Neurological Exam Neurological Exam: Alert, Awake, CN II-XII Intact, Normal Gait, Oriented x3 - Psychiatric Exam Psychiatric exam: Normal Affect, Normal Mood - Skin Skin Exam: Dry, Intact, Normal Color, Warm Assessment and Plan (1) Discitis Status: Acute (2) Intractable low back pain Status: Acute - Assessment and Plan (Free Text) Assessment: discitis / OM secondary to IVDU cont empiric rx for 8 weeks with follow up imaging
[2018-09-01] MEDS ORDERED: Morphine 4 MG/ML VIAL IVP PRN (02:30)
[2018-09-01] MEDS: Piperacillin/Tazobact 3.375 GM in Sodium Chloride 0.9% 100 ML IVPB SCH ×4 (04:34→22:45)
[2018-09-01] MEDS: Levothyroxine 150 MCG TAB PO SCH (05:58)
[2018-09-01] MEDS: Lidocaine 5% Patch TD SCH ×2 (09:08→09:42)
[2018-09-01] MEDS: Pantoprazole 40 mg EC Tab PO SCH (09:42)
--- NOTE | 2018-09-01 11:26 | CP.PCM.PN ---
<Diana Avalos - Last Filed: 09/01/18 11:23> Subjective - Date & Time of Evaluation Date of Evaluation: 09/01/18 Time of Evaluation: 09:35 - Subjective Subjective: Patient seen and examined at bedside. In no acute distress. Reports back pain controlled with medication, tolerating PO diet and normal stool output. Objective - Vital Signs/Intake and Output Vital Signs (last 24 hours): Temp Pulse Resp BP Pulse Ox 97.9 F 77 20 147/89 98 09/01/18 08:11 09/01/18 08:11 09/01/18 08:11 09/01/18 08:11 09/01/18 08:11 - Medications Medications: Current Medications Docusate Sodium (Colace) 100 mg PO BID [facility] Last Admin: 09/01/18 09:42 Dose: 100 mg Piperacillin Sod/Tazobactam (Sod 3.375 gm/ Sodium Chloride) 100 mls @ 100 mls/hr IVPB Q6 [facility]; Protocol Last Admin: 09/01/18 04:34 Dose: 100 mls/hr Vancomycin HCl 1,500 mg/ (Sodium Chloride) 500 mls @ 333.333 mls/hr IVPB Q12H [facility]; Protocol Last Admin: 09/01/18 09:53 Dose: 333.333 mls/hr Ibuprofen (Motrin Tab) 600 mg PO Q6 PRN PRN Reason: Pain, Mild (1-3) Ketorolac Tromethamine (Toradol) 30 mg IVP Q6 PRN PRN Reason: Pain, severe (8-10) Last Admin: 08/31/18 23:58 Dose: 30 mg Ketorolac Tromethamine (Toradol) 15 mg IVP Q6 PRN PRN Reason: Pain, moderate (4-7) Levothyroxine Sodium (Synthroid) 150 mcg PO DAILY@0630 [facility] Last Admin: 09/01/18 05:58 Dose: 150 mcg Lidocaine (Lidoderm) 1 ea TD DAILY [facility] Last Admin: 09/01/18 09:42 Dose: 1 ea Morphine Sulfate (Morphine) 2 mg IVP Q4 PRN PRN Reason: Pain, severe (8-10) Pantoprazole Sodium (Protonix Ec Tab) 40 mg PO DAILY [facility] Last Admin: 09/01/18 09:42 Dose: 40 mg Trazodone HCl (Desyrel) 50 mg PO HS [facility] Last Admin: 08/31/18 22:28 Dose: 50 mg Ursodiol (Actigall) 300 mg PO TID [facility] Last Admin: 09/01/18 09:41 Dose: 300 mg - Labs Labs: 08/30/18 05:45 08/30/18 05:45 - Constitutional Appears: No Acute Distress - Eye Exam Eye Exam: EOMI - ENT Exam ENT Exam: Mucous Membranes Moist - Respiratory Exam Respiratory Exam: Clear to Ausculation Bilateral, NORMAL BREATHING PATTERN - Cardiovascular Exam Cardiovascular Exam: REGULAR RHYTHM, +S1, +S2 - GI/Abdominal Exam GI & Abdominal Exam: Soft, Normal Bowel Sounds. absent: Tenderness - Extremities Exam Extremities Exam: Full ROM. absent: Pedal Edema Additional comments: hyperpigmented LE skin - Back Exam Additional comments: mild tenderness to palpation of lumbosacral area - Neurological Exam Neurological Exam: Alert, Awake, Oriented x3 - Psychiatric Exam Psychiatric exam: Normal Affect, Normal Mood - Skin Skin Exam: Dry, Normal Color, Warm Additional comments: Right arm PICC in place, dressing clean/dry/intact Assessment and Plan - Assessment and Plan (Free Text) Assessment: 42 yr old M with significant PMH of IVDA & Hepatitis C presented to the ED with 2 months of lower back & b/l hip pain with associated worsening b/l lower extremity weakness. Lumbar spine MRI resulted highly suggestive of discitis osteomyelitis of L1-L2. Patient has RUE PICC for continued IV antibiotics. 1. Lumbar discitis osteomyelitis -MRI lumbar spine: discitis osteomyelitis of L1-L2, bulging discs with foraminal stenosis (see full report) -Lumbar spine CT: Discitis osteomylitis at L1-2 and potentionally L2-L3. Epidural abscess not excluded and MRI w/o parvez advised for better resolution. Spondylolisthesis L1-L2. -Lumbar spine x-ray: Findings most likely represent discitis osteomyelitis at L2-L3 level with partial collapse of L2 segment & retropulsion for posterior superior corner. There is also slight posterior subluzation of L1 over L2. -Neuro surgery consulted: Dr. Lang: wear TLSO brace when out of bed, ambulate as tolerated, repeat MRI in 4-6 months (sooner if clinical change) -IR consulted- no IR procedure recommended at this time -ID on board: Dr. Schrader: continue empiric antibiotics for 8 weeks and repeat imaging -Vancomycin 1.5 gm Q12 (day 3) & zosyn 3.375 Q6 (day 4), Vanc trough 13.9 on 08/31/18 -continue with pain control : PRN toradol, percocet and lidoderm patch -Blood cx no growth x 48 hrs, ESR 67 2. Hypothyroidism -chronic, uncontrolled -patient reports prior compliance with levothyroxine 100 mcg PO QD -TSH 50 mIU/mL on 08/31/18 -levothyroxine dose increased to 150mcg PO QD -f/u repeat TSH in 1 week 3. Thrombocytopenia -chronic, stable -may be secondary to Hep C -will monitor 4. IVDA -ID consulted- Dr. Schrader: will follow recommendations -HIV negative, U tox + Opiates and benzodiazepines -Echo EF 60-65% no evidence of endocarditis 5. Hep C -Hepatitic C antibody positive 03/2018 and 08/31/18 -Hep B Ag and Hep B core Ab , Hep A Ab negative 08/31/18 <Jarrod Corrales - Last Filed: 09/01/18 13:04> Objective - Vital Signs/Intake and Output Vital Signs (last 24 hours): Temp Pulse Resp BP Pulse Ox 97.9 F 77 20 147/89 98 09/01/18 08:11 09/01/18 08:11 09/01/18 08:11 09/01/18 08:11 09/01/18 08:11 - Medications Medications: Current Medications Docusate Sodium (Colace) 100 mg PO BID [facility] Last Admin: 09/01/18 09:42 Dose: 100 mg Piperacillin Sod/Tazobactam (Sod 3.375 gm/ Sodium Chloride) 100 mls @ 100 mls/hr IVPB Q6 [facility]; Protocol Last Admin: 09/01/18 11:30 Dose: 100 mls/hr Vancomycin HCl 1,500 mg/ (Sodium Chloride) 500 mls @ 333.333 mls/hr IVPB Q12H [facility]; Protocol Last Admin: 09/01/18 09:53 Dose: 333.333 mls/hr Ibuprofen (Motrin Tab) 600 mg PO Q6 PRN PRN Reason: Pain, Mild (1-3) Ketorolac Tromethamine (Toradol) 30 mg IVP Q6 PRN PRN Reason: Pain, severe (8-10) Last Admin: 09/01/18 12:08 Dose: 30 mg Ketorolac Tromethamine (Toradol) 15 mg IVP Q6 PRN PRN Reason: Pain, moderate (4-7) Levothyroxine Sodium (Synthroid) 150 mcg PO DAILY@0630 [facility] Last Admin: 09/01/18 05:58 Dose: 150 mcg Lidocaine (Lidoderm) 1 ea TD DAILY [facility] Last Admin: 09/01/18 09:42 Dose: 1 ea Morphine Sulfate (Morphine) 2 mg IVP Q4 PRN PRN Reason: Pain, severe (8-10) Pantoprazole Sodium (Protonix Ec Tab) 40 mg PO DAILY [facility] Last Admin: 09/01/18 09:42 Dose: 40 mg Trazodone HCl (Desyrel) 50 mg PO HS [facility] Last Admin: 08/31/18 22:28 Dose: 50 mg Ursodiol (Actigall) 300 mg PO TID [facility] Last Admin: 09/01/18 09:41 Dose: 300 mg - Labs Labs: 08/30/18 05:45 08/30/18 05:45 Attending/Attestation - Attestation I have personally seen and examined this patient.: Yes I have fully participated in the care of the patient.: Yes I have reviewed all pertinent clinical information, including history, physical exam and plan: Yes Notes (Text): 09/01/18 13:03 Patient seen and examined with resident. Case discussed and agreed with assessment and plan
--- NOTE | 2018-09-01 17:05 | CP.PCM.PN ---
Subjective - Date & Time of Evaluation Date of Evaluation: 09/01/18 Time of Evaluation: 08:00 - Subjective Subjective: no fever c/o pain Objective - Vital Signs/Intake and Output Vital Signs (last 24 hours): Temp Pulse Resp BP Pulse Ox 98.1 F 76 20 149/94 H 93 L 09/01/18 16:32 09/01/18 16:32 09/01/18 16:32 09/01/18 16:32 09/01/18 16:32 - Medications Medications: Current Medications Docusate Sodium (Colace) 100 mg PO BID [facility] Last Admin: 09/01/18 16:14 Dose: 100 mg Piperacillin Sod/Tazobactam (Sod 3.375 gm/ Sodium Chloride) 100 mls @ 100 mls/hr IVPB Q6 [facility]; Protocol Last Admin: 09/01/18 16:24 Dose: 100 mls/hr Vancomycin HCl 1,500 mg/ (Sodium Chloride) 500 mls @ 333.333 mls/hr IVPB Q12H [facility]; Protocol Last Admin: 09/01/18 09:53 Dose: 333.333 mls/hr Ibuprofen (Motrin Tab) 600 mg PO Q6 PRN PRN Reason: Pain, Mild (1-3) Ketorolac Tromethamine (Toradol) 30 mg IVP Q6 PRN PRN Reason: Pain, severe (8-10) Last Admin: 09/01/18 12:08 Dose: 30 mg Ketorolac Tromethamine (Toradol) 15 mg IVP Q6 PRN PRN Reason: Pain, moderate (4-7) Last Admin: 09/01/18 16:11 Dose: 15 mg Levothyroxine Sodium (Synthroid) 150 mcg PO DAILY@0630 [facility] Last Admin: 09/01/18 05:58 Dose: 150 mcg Lidocaine (Lidoderm) 1 ea TD DAILY [facility] Last Admin: 09/01/18 09:08 Dose: Not Given Pantoprazole Sodium (Protonix Ec Tab) 40 mg PO DAILY [facility] Last Admin: 09/01/18 09:42 Dose: 40 mg Trazodone HCl (Desyrel) 50 mg PO HS [facility] Last Admin: 08/31/18 22:28 Dose: 50 mg Ursodiol (Actigall) 300 mg PO TID [facility] Last Admin: 09/01/18 16:14 Dose: 300 mg - Labs Labs: 04/30/19 05:45 08/30/18 05:45 - Constitutional Appears: Non-toxic, No Acute Distress, Chronically Ill - Head Exam Head Exam: ATRAUMATIC, NORMAL INSPECTION, NORMOCEPHALIC - Eye Exam Eye Exam: EOMI, Normal appearance, PERRL Pupil Exam: NORMAL ACCOMODATION, PERRL - ENT Exam ENT Exam: Mucous Membranes Moist, Normal Exam - Neck Exam Neck Exam: Full ROM, Normal Inspection. absent: Lymphadenopathy - Respiratory Exam Respiratory Exam: Clear to Ausculation Bilateral, NORMAL BREATHING PATTERN - Cardiovascular Exam Cardiovascular Exam: REGULAR RHYTHM, +S1, +S2. absent: Murmur - GI/Abdominal Exam GI & Abdominal Exam: Soft, Normal Bowel Sounds. absent: Tenderness - Rectal Exam Rectal Exam: Deferred - Exam Exam: NORMAL INSPECTION - Extremities Exam Extremities Exam: Full ROM, Normal Capillary Refill, Normal Inspection. absent: Joint Swelling, Pedal Edema - Back Exam Back Exam: NORMAL INSPECTION - Neurological Exam Neurological Exam: Alert, Awake, CN II-XII Intact, Normal Gait, Oriented x3 - Psychiatric Exam Psychiatric exam: Normal Affect, Normal Mood - Skin Skin Exam: Dry, Intact, Normal Color, Warm Assessment and Plan (1) Discitis Status: Acute (2) Intractable low back pain Status: Acute - Assessment and Plan (Free Text) Assessment: cont iv rx for 6-8 weeks Check TB quantiferon and PPD May need rx for Hep C
[2018-09-02] MEDS: Piperacillin/Tazobact 3.375 GM in Sodium Chloride 0.9% 100 ML IVPB SCH ×4 (03:28→21:47)
[2018-09-02] MEDS: Levothyroxine 150 MCG TAB PO SCH (06:23)
[2018-09-02] MEDS ORDERED: Tuberculin 5 Units/0.1 ml Inj ID ONE (08:14)
[2018-09-02] MEDS: Pantoprazole 40 mg EC Tab PO SCH (09:01)
[2018-09-02] MEDS: Lidocaine 5% Patch TD SCH ×2 (09:02→09:19)
--- NOTE | 2018-09-02 13:03 | CP.PCM.PN ---
<Diana Avalos - Last Filed: 09/02/18 13:00> Subjective - Date & Time of Evaluation Date of Evaluation: 09/02/18 Time of Evaluation: 09:20 - Subjective Subjective: Patient seen and examined at bedside. In no acute distress. Reports normal urine and stool output. Reports back pain controlled with medication as needed. Denies chest pain, SOB, weakness or dizziness. Objective - Vital Signs/Intake and Output Vital Signs (last 24 hours): Temp Pulse Resp BP Pulse Ox 98.0 F 69 20 108/66 98 09/02/18 07:33 09/02/18 07:33 09/02/18 07:33 09/02/18 07:33 09/02/18 07:33 - Medications Medications: Current Medications Docusate Sodium (Colace) 100 mg PO BID [facility] Last Admin: 09/02/18 09:02 Dose: 100 mg Piperacillin Sod/Tazobactam (Sod 3.375 gm/ Sodium Chloride) 100 mls @ 100 mls/hr IVPB Q6 [facility]; Protocol Last Admin: 09/02/18 10:33 Dose: 100 mls/hr Vancomycin HCl 1,500 mg/ (Sodium Chloride) 500 mls @ 333.333 mls/hr IVPB Q12H [facility]; Protocol Last Admin: 09/02/18 09:00 Dose: 333.333 mls/hr Ibuprofen (Motrin Tab) 600 mg PO Q6 PRN PRN Reason: Pain, Mild (1-3) Ketorolac Tromethamine (Toradol) 30 mg IVP Q6 PRN PRN Reason: Pain, severe (8-10) Last Admin: 09/02/18 06:22 Dose: 30 mg Ketorolac Tromethamine (Toradol) 15 mg IVP Q6 PRN PRN Reason: Pain, moderate (4-7) Last Admin: 09/02/18 09:05 Dose: 15 mg Levothyroxine Sodium (Synthroid) 150 mcg PO DAILY@0630 [facility] Last Admin: 09/02/18 06:23 Dose: 150 mcg Lidocaine (Lidoderm) 1 ea TD DAILY [facility] Last Admin: 09/02/18 09:19 Dose: Not Given Pantoprazole Sodium (Protonix Ec Tab) 40 mg PO DAILY [facility] Last Admin: 09/02/18 09:01 Dose: 40 mg Trazodone HCl (Desyrel) 50 mg PO HS [facility] Last Admin: 09/01/18 22:09 Dose: 50 mg Ursodiol (Actigall) 300 mg PO TID [facility] Last Admin: 09/02/18 09:02 Dose: 300 mg - Labs Labs: 08/30/18 05:45 08/30/18 05:45 - Constitutional Appears: No Acute Distress - Head Exam Head Exam: ATRAUMATIC, NORMOCEPHALIC - Eye Exam Eye Exam: EOMI - ENT Exam ENT Exam: Mucous Membranes Moist - Respiratory Exam Respiratory Exam: NORMAL BREATHING PATTERN. absent: Rhonchi, Wheezes - Cardiovascular Exam Cardiovascular Exam: REGULAR RHYTHM, +S1, +S2 - GI/Abdominal Exam GI & Abdominal Exam: Soft, Normal Bowel Sounds - Extremities Exam Extremities Exam: absent: Calf Tenderness, Pedal Edema - Neurological Exam Neurological Exam: Alert, Awake, Oriented x3 - Psychiatric Exam Psychiatric exam: Normal Affect, Normal Mood - Skin Skin Exam: Dry (right upper arm PICC, dressing clean/dry/intact), Normal Color, Warm Assessment and Plan - Assessment and Plan (Free Text) Assessment: 42 yr old M with significant PMH of IVDA & Hepatitis C presented to the ED with 2 months of lower back & b/l hip pain with associated worsening b/l lower extremity weakness. Lumbar spine MRI resulted highly suggestive of discitis ost eomyelitis of L1-L2. Patient has RUE PICC for continued IV antibiotics. 1. Lumbar discitis osteomyelitis -MRI lumbar spine: discitis osteomyelitis of L1-L2, bulging discs with foraminal stenosis (see full report) -Lumbar spine CT: Discitis osteomylitis at L1-2 and potentionally L2-L3. Epidural abscess not excluded and MRI w/o parvez advised for better resolution. Spondylolisthesis L1-L2. -Lumbar spine x-ray: Findings most likely represent discitis osteomyelitis at L2-L3 level with partial collapse of L2 segment & retropulsion for posterior superior corner. There is also slight posterior subluzation of L1 over L2. -Neuro surgery consulted: Dr. Lang: wear TLSO brace when out of bed, ambulate as tolerated, repeat MRI in 4-6 months (sooner if clinical change) -IR consulted- no IR procedure recommended at this time -ID on board: Dr. Schrader: continue empiric antibiotics for 6 weeks and repeat imaging -Vancomycin 1.5 gm Q12 (day 4) & zosyn 3.375 Q6 (day 5), Vanc trough 13.9 on 08/31/18 -continue with pain control : PRN toradol, percocet and lidoderm patch -Blood cx no growth x 4 days, ESR 67 -f/u Quantiferon and PPD 2. Hypothyroidism -chronic, uncontrolled -patient reports prior compliance with levothyroxine 100 mcg PO QD -TSH 50 mIU/mL on 08/31/18 -levothyroxine dose increased to 150mcg PO QD -f/u repeat TSH in 1 week 3. Thrombocytopenia -chronic, stable -may be secondary to Hep C -will monitor 4. IVDA -ID consulted- Dr. Schrader: will follow recommendations -HIV negative, U tox + Opiates and benzodiazepines -Echo EF 60-65% no evidence of endocarditis 5. Hep C -Hepatitic C antibody positive 03/2018 and 08/31/18 -Hep B Ag and Hep B core Ab , Hep A Ab negative 08/31/18 -per ID, may need Hep C tx <Kely Coughlin - Last Filed: 09/02/18 15:26> Objective - Vital Signs/Intake and Output Vital Signs (last 24 hours): Temp Pulse Resp BP Pulse Ox 98.0 F 71 18 133/77 98 09/02/18 13:00 09/02/18 13:00 09/02/18 13:00 09/02/18 13:00 09/02/18 13:00 - Medications Medications: Current Medications Docusate Sodium (Colace) 100 mg PO BID [facility] Last Admin: 09/02/18 09:02 Dose: 100 mg Piperacillin Sod/Tazobactam (Sod 3.375 gm/ Sodium Chloride) 100 mls @ 100 mls/hr IVPB Q6 [facility]; Protocol Last Admin: 09/02/18 10:33 Dose: 100 mls/hr Vancomycin HCl 1,500 mg/ (Sodium Chloride) 500 mls @ 333.333 mls/hr IVPB Q12H [facility]; Protocol Last Admin: 09/02/18 09:00 Dose: 333.333 mls/hr Ibuprofen (Motrin Tab) 600 mg PO Q6 PRN PRN Reason: Pain, Mild (1-3) Ketorolac Tromethamine (Toradol) 30 mg IVP Q6 PRN PRN Reason: Pain, severe (8-10) Last Admin: 09/02/18 13:07 Dose: 30 mg Ketorolac Tromethamine (Toradol) 15 mg IVP Q6 PRN PRN Reason: Pain, moderate (4-7) Last Admin: 09/02/18 09:05 Dose: 15 mg Levothyroxine Sodium (Synthroid) 150 mcg PO DAILY@0630 [facility] Last Admin: 09/02/18 06:23 Dose: 150 mcg Lidocaine (Lidoderm) 1 ea TD DAILY [facility] Last Admin: 09/02/18 09:19 Dose: Not Given Pantoprazole Sodium (Protonix Ec Tab) 40 mg PO DAILY [facility] Last Admin: 09/02/18 09:01 Dose: 40 mg Trazodone HCl (Desyrel) 50 mg PO HS [facility] Last Admin: 09/01/18 22:09 Dose: 50 mg Ursodiol (Actigall) 300 mg PO TID [facility] Last Admin: 09/02/18 13:44 Dose: 300 mg - Labs Labs: 08/30/18 05:45 08/30/18 05:45 Attending/Attestation - Attestation I have personally seen and examined this patient.: Yes I have fully participated in the care of the patient.: Yes I have reviewed all pertinent clinical information, including history, physical exam and plan: Yes Notes (Text): Discitis/Osteomyelitis at L1-L2, L2-L3 No Epidural Abscess on MRI Active of IVDU Hep C + Hypothyroidism - Pt has low back pain, no neuro deficit, no saddle anesthesia, voiding freely, + BM - MRI of the L spine with Gadolinium showed Osteo/Discitis , no mention of abscess - Neurosurgery consulted- Dr Lang - rec IR consult , per IR - no intervention - Dr Alvarez ( note specialist ) came to eval pt today - no surgical intervention, rec TLSO Brace -cont IV Zosyn and Vanco, Vanco dose increased to 1500mg q 12 x 8 wks total as rec by DR Schrader , PICC in place - Pain mgt- Percocet -Echo : no vegetation - Blood c/s : negative so far -ID consulted -cont Levothyroxine - Hep C viral load
--- NOTE | 2018-09-02 13:48 | CP.PCM.PN ---
Subjective - Date & Time of Evaluation Date of Evaluation: 09/02/18 Time of Evaluation: 07:00 - Subjective Subjective: events noted afebrile Labs cultures imaging and notes reviewed Objective - Vital Signs/Intake and Output Vital Signs (last 24 hours): Temp Pulse Resp BP Pulse Ox 98.0 F 71 18 133/77 98 09/02/18 13:00 09/02/18 13:00 09/02/18 13:00 09/02/18 13:00 09/02/18 13:00 - Medications Medications: Current Medications Docusate Sodium (Colace) 100 mg PO BID [facility] Last Admin: 09/02/18 09:02 Dose: 100 mg Piperacillin Sod/Tazobactam (Sod 3.375 gm/ Sodium Chloride) 100 mls @ 100 mls/hr IVPB Q6 [facility]; Protocol Last Admin: 09/02/18 10:33 Dose: 100 mls/hr Vancomycin HCl 1,500 mg/ (Sodium Chloride) 500 mls @ 333.333 mls/hr IVPB Q12H [facility]; Protocol Last Admin: 09/02/18 09:00 Dose: 333.333 mls/hr Ibuprofen (Motrin Tab) 600 mg PO Q6 PRN PRN Reason: Pain, Mild (1-3) Ketorolac Tromethamine (Toradol) 30 mg IVP Q6 PRN PRN Reason: Pain, severe (8-10) Last Admin: 09/02/18 13:07 Dose: 30 mg Ketorolac Tromethamine (Toradol) 15 mg IVP Q6 PRN PRN Reason: Pain, moderate (4-7) Last Admin: 09/02/18 09:05 Dose: 15 mg Levothyroxine Sodium (Synthroid) 150 mcg PO DAILY@0630 [facility] Last Admin: 09/02/18 06:23 Dose: 150 mcg Lidocaine (Lidoderm) 1 ea TD DAILY [facility] Last Admin: 09/02/18 09:19 Dose: Not Given Pantoprazole Sodium (Protonix Ec Tab) 40 mg PO DAILY [facility] Last Admin: 09/02/18 09:01 Dose: 40 mg Trazodone HCl (Desyrel) 50 mg PO HS [facility] Last Admin: 09/01/18 22:09 Dose: 50 mg Ursodiol (Actigall) 300 mg PO TID [facility] Last Admin: 09/02/18 13:44 Dose: 300 mg - Labs Labs: 08/30/18 05:45 08/30/18 05:45 - Constitutional Appears: Non-toxic, Chronically Ill - Head Exam Head Exam: ATRAUMATIC, NORMAL INSPECTION, NORMOCEPHALIC - Eye Exam Eye Exam: EOMI, Normal appearance, PERRL Pupil Exam: NORMAL ACCOMODATION, PERRL - ENT Exam ENT Exam: Mucous Membranes Moist, Normal Exam - Neck Exam Neck Exam: Full ROM, Normal Inspection. absent: Lymphadenopathy - Respiratory Exam Respiratory Exam: Clear to Ausculation Bilateral, NORMAL BREATHING PATTERN - Cardiovascular Exam Cardiovascular Exam: REGULAR RHYTHM, +S1, +S2. absent: Murmur - GI/Abdominal Exam GI & Abdominal Exam: Soft, Normal Bowel Sounds. absent: Tenderness - Rectal Exam Rectal Exam: Deferred - Extremities Exam Extremities Exam: Full ROM, Normal Capillary Refill, Normal Inspection. absent: Joint Swelling, Pedal Edema - Back Exam Back Exam: NORMAL INSPECTION - Neurological Exam Neurological Exam: Alert, Awake, CN II-XII Intact, Normal Gait, Oriented x3 - Psychiatric Exam Psychiatric exam: Normal Affect, Normal Mood - Skin Skin Exam: Dry, Intact, Normal Color, Warm Assessment and Plan (1) Discitis Status: Acute (2) Intractable low back pain Status: Acute - Assessment and Plan (Free Text) Assessment: cont rx for 8 weeks
--- NOTE | 2018-09-02 13:49 | CP.PCM.PCO ---
Physician Communication Note - Physician Communication Note Physician Communication Note: hep c reactive viral load sent
[2018-09-03] MEDS: Piperacillin/Tazobact 3.375 GM in Sodium Chloride 0.9% 100 ML IVPB SCH (04:38)
[2018-09-03] MEDS: Levothyroxine 150 MCG TAB PO SCH (06:10)
[2018-09-03 06:49] LABS: BASO % 0.7 % (0.0-2.0); EOS # 0.1 K/uL (0.0-0.7); EOS % 2.2 % (0.0-4.0); LYMPH % 20.5 % (20.0-40.0); MEAN CELL VOLUME 90.4 fl (80.0-94.0); MEAN CORPUSCULAR HEMOGLOBIN 30.4 pg (27.0-31.0); MEAN CORPUSCULAR HGB CONC 33.7 g/dL (33.0-37.0); MEAN PLATELET VOLUME 8.2 fl (7.2-11.7); MONO # 0.4 K/uL (0.0-0.8); NEUT # 3.3 K/uL (1.8-7.0); NEUT % 68.6 % (50.0-75.0); RBC 3.66 Mil/uL (4.40-5.90); RED CELL DISTRIBUTION WIDTH 15.9 % (11.5-14.5); WHITE BLOOD COUNT 4.9 K/uL (4.8-10.8)
[2018-09-03 07:15] LABS: HEMOGLOBIN 11.1 g/dL (12.0-18.0)
[2018-09-03 07:24] LABS: CALCIUM 7.8 mg/dL (8.4-10.2)
[2018-09-03] MEDS: Pantoprazole 40 mg EC Tab PO SCH (09:03)
[2018-09-03] MEDS: Lidocaine 5% Patch TD SCH (09:04)
[2018-09-03] MEDS: Sodium Chloride 0.9% 1,000 ML IV SCH ×2 (09:30→10:30)
--- NOTE | 2018-09-03 11:34 | CP.PCM.PN ---
<Diana Avalos - Last Filed: 09/03/18 11:32> Subjective - Date & Time of Evaluation Date of Evaluation: 09/03/18 Time of Evaluation: 08:40 - Subjective Subjective: Patient seen and examined at bedside. In no acute distress. No events overnight. Back pain persists. Ambulating without difficulty. Denies lower extremity weakness/numbness or tingling. Discussed with patient increase in creatinine and use of pain medication as needed. Objective - Vital Signs/Intake and Output Vital Signs (last 24 hours): Temp Pulse Resp BP Pulse Ox 98.1 F 65 20 129/78 95 09/03/18 08:16 09/03/18 08:16 09/03/18 08:16 09/03/18 08:16 09/03/18 08:16 - Medications Medications: Current Medications Docusate Sodium (Colace) 100 mg PO BID [facility] Last Admin: 09/03/18 09:03 Dose: 100 mg Vancomycin HCl 1,500 mg/ (Sodium Chloride) 500 mls @ 333.333 mls/hr IVPB DAILY [facility]; Protocol Last Admin: 09/03/18 11:25 Dose: 333.333 mls/hr Piperacillin Sod/Tazobactam (Sod 2.25 gm/ Sodium Chloride) 100 mls @ 100 mls/hr IVPB Q8 [facility]; Protocol Last Admin: 09/03/18 11:21 Dose: 100 mls/hr Ibuprofen (Motrin Tab) 600 mg PO Q6 PRN PRN Reason: Pain, Mild (1-3) Ketorolac Tromethamine (Toradol) 30 mg IVP Q6 PRN PRN Reason: Pain, severe (8-10) Last Admin: 09/03/18 06:26 Dose: 30 mg Ketorolac Tromethamine (Toradol) 15 mg IVP Q6 PRN PRN Reason: Pain, moderate (4-7) Last Admin: 09/03/18 01:18 Dose: 15 mg Levothyroxine Sodium (Synthroid) 150 mcg PO DAILY@0630 [facility] Last Admin: 09/03/18 06:10 Dose: 150 mcg Lidocaine (Lidoderm) 1 ea TD DAILY [facility] Last Admin: 09/03/18 09:04 Dose: Not Given Pantoprazole Sodium (Protonix Ec Tab) 40 mg PO DAILY [facility] Last Admin: 05/04/19 09:03 Dose: 40 mg Trazodone HCl (Desyrel) 50 mg PO HS [facility] Last Admin: 09/02/18 21:06 Dose: 50 mg Ursodiol (Actigall) 300 mg PO TID [facility] Last Admin: 09/02/18 17:11 Dose: 300 mg - Labs Labs: 09/03/18 06:30 09/03/18 06:30 - Constitutional Appears: No Acute Distress - Head Exam Head Exam: NORMAL INSPECTION - Eye Exam Eye Exam: EOMI - ENT Exam ENT Exam: Mucous Membranes Moist - Respiratory Exam Respiratory Exam: Clear to Ausculation Bilateral, NORMAL BREATHING PATTERN - Cardiovascular Exam Cardiovascular Exam: REGULAR RHYTHM, +S1, +S2 - GI/Abdominal Exam GI & Abdominal Exam: Soft, Normal Bowel Sounds - Extremities Exam Extremities Exam: Full ROM. absent: Calf Tenderness, Pedal Edema - Neurological Exam Neurological Exam: Alert, Awake, Oriented x3 - Skin Skin Exam: Dry, Normal Color, Warm Assessment and Plan - Assessment and Plan (Free Text) Assessment: 42 yr old M with significant PMH of IVDA & Hepatitis C presented to the ED with 2 months of lower back & b/l hip pain with associated worsening b/l lower extremity weakness. Lumbar spine MRI resulted highly suggestive of discitis osteomyelitis of L1-L2. Patient has RUE PICC for continued IV antibiotics. Creat inine increased to 1.7 today, IV antibiotic treatment adjusted to renal dose, IVF ordered, encouraged patient to request pain medication PRN. 1. Lumbar discitis osteomyelitis -MRI lumbar spine: discitis osteomyelitis of L1-L2, bulging discs with foraminal stenosis (see full report) -Lumbar spine CT: Discitis osteomylitis at L1-2 and potentionally L2-L3. Epidural abscess not excluded and MRI w/o parvez advised for better resolution. Spondylolisthesis L1-L2. -Lumbar spine x-ray: Findings most likely represent discitis osteomyelitis at L2-L3 level with partial collapse of L2 segment & retropulsion for posterior superior corner. There is also slight posterior subluzation of L1 over L2. -Neuro surgery consulted: Dr. Lang: wear TLSO brace when out of bed, ambulate as tolerated, repeat MRI in 4-6 months (sooner if clinical change) -IR consulted- no IR procedure recommended at this time -ID on board: Dr. Mangia: continue empiric antibiotics for 6 weeks and repeat imaging -IV antibiotic dose adjusted due to creatinine increase to 1.7; Vancomycin 1.5 gm QD (day 5) & zosyn 2.25 Q8 (day 6), Vanc trough 13.9 on 08/31/18 -continue with pain control : PRN toradol, percocet and lidoderm patch -Blood cx no growth x 4 days, ESR 67 -f/u Quantiferon and PPD -f/u repeat vanc trough -f/u BMP 2. Acute Kidney Injury -acute, likely secondary to IV antibiotics and pain medication -Creatinine 1.7 today (was 0.7 yesterday) -IV antibiotic dose adjusted due to renal dose -IVF -normal saline -encouraged patient to only request pain med PRN -f/u vanco trough -f/u BMP 3. Hypothyroidism -chronic, uncontrolled -patient reports prior compliance with levothyroxine 100 mcg PO QD -TSH 50 mIU/mL on 08/31/18 -levothyroxine dose increased to 150mcg PO QD -f/u repeat TSH in 1 week 4. Thrombocytopenia -chronic, stable -may be secondary to Hep C -ursodiol medication discontinued (may contribute to thrombocytopenia) -will monitor 5. IVDA -ID consulted- Dr. Schrader: will follow recommendations -HIV negative, U tox + Opiates and benzodiazepines -Echo EF 60-65% no evidence of endocarditis 6. Hep C -Hepatitic C antibody positive 03/2018 and 08/31/18 -Hep B Ag and Hep B core Ab , Hep A Ab negative 08/31/18 -per ID, may need Hep C tx -f/u Hep C viral load <Kely Coughlin - Last Filed: 09/03/18 14:49> Objective - Vital Signs/Intake and Output Vital Signs (last 24 hours): Temp Pulse Resp BP Pulse Ox 98.1 F 65 20 129/78 95 09/03/18 08:16 09/03/18 08:16 09/03/18 08:16 09/03/18 08:16 09/03/18 08:16 - Medications Medications: Current Medications Docusate Sodium (Colace) 100 mg PO BID [facility] Last Admin: 09/03/18 09:03 Dose: 100 mg Vancomycin HCl 1,500 mg/ (Sodium Chloride) 500 mls @ 333.333 mls/hr IVPB DAILY [facility]; Protocol Last Admin: 09/03/18 11:25 Dose: 333.333 mls/hr Piperacillin Sod/Tazobactam (Sod 2.25 gm/ Sodium Chloride) 100 mls @ 100 mls/hr IVPB Q8 [facility]; Protocol Last Admin: 09/03/18 11:21 Dose: 100 mls/hr Ketorolac Tromethamine (Toradol) 30 mg IVP Q6 PRN PRN Reason: Pain, severe (8-10) Last Admin: 09/03/18 12:54 Dose: 30 mg Ketorolac Tromethamine (Toradol) 15 mg IVP Q6 PRN PRN Reason: Pain, moderate (4-7) Last Admin: 09/03/18 01:18 Dose: 15 mg Levothyroxine Sodium (Synthroid) 150 mcg PO DAILY@0630 [facility] Last Admin: 09/03/18 06:10 Dose: 150 mcg Lidocaine (Lidoderm) 1 ea TD DAILY [facility] Last Admin: 09/03/18 09:04 Dose: Not Given Pantoprazole Sodium (Protonix Ec Tab) 40 mg PO DAILY [facility] Last Admin: 09/03/18 09:03 Dose: 40 mg Trazodone HCl (Desyrel) 50 mg PO HS [facility] Last Admin: 09/02/18 21:06 Dose: 50 mg - Labs Labs: 09/03/18 06:30 09/03/18 06:30 Attending/Attestation - Attestation I have personally seen and examined this patient.: Yes I have fully participated in the care of the patient.: Yes I have reviewed all pertinent clinical information, including history, physical exam and plan: Yes Notes (Text): Discitis/Osteomyelitis at L1-L2, L2-L3 No Epidural Abscess on MRI Active of IVDU Hep C + Hypothyroidism Acute Kidney Injury prob sec to meds ( Vanco , NSAIDs) - Pt has low back pain, no neuro deficit, no saddle anesthesia, voiding freely, + BM - MRI of the L spine with Gadolinium showed Osteo/Discitis , no mention of abscess - Neurosurgery consulted- Dr Lang - rec IR consult , per IR - no intervention - Dr Alvaerz ( graphic specialist ) came to eval pt today - no surgical intervention, rec TLSO Brace -cont IV Zosyn and Vanco ( Vanco dose decreased to once daily due to increase in Crea to 1.7) - Pain mgt- Percocet -Echo : no vegetation - Blood c/s : negative so far -ID consulted rec 6-8 wks of IV abx -cont Levothyroxine- dose increased to 150 mcg this admission - Hep C viral load -PPD and Quantiferon TB test as rec by Dr Schrader - decrease Vanco dose - IVF hydration - d/c NSAIDs
[2018-09-03 22:12] LABS: BARBITURATES, UR NEGATIVE (NEGATIVE); BENZODIAZEPINES, UR NEGATIVE (NEGATIVE); OPIATES, UR POSITIVE (NEGATIVE); PHENCYCLIDINE, UR NEGATIVE (NEGATIVE)
[2018-09-04] MEDS: Levothyroxine 150 MCG TAB PO SCH (06:11)
[2018-09-04 08:12] LABS: HEMOGLOBIN 11.2 g/dL (12.0-18.0); MEAN CELL VOLUME 89.9 fl (80.0-94.0); MEAN CORPUSCULAR HEMOGLOBIN 30.2 pg (27.0-31.0); MEAN CORPUSCULAR HGB CONC 33.6 g/dL (33.0-37.0); RBC 3.71 Mil/uL (4.40-5.90); RED CELL DISTRIBUTION WIDTH 15.4 % (11.5-14.5); WHITE BLOOD COUNT 4.4 K/uL (4.8-10.8)
[2018-09-04 08:39] LABS: BLOOD UREA NITROGEN 16 mg/dl (9-20); CALCIUM 8.4 mg/dL (8.4-10.2); GFR NON-AFRICAN AMERICAN 52
[2018-09-04] MEDS: Pantoprazole 40 mg EC Tab PO SCH (09:58)
[2018-09-04] MEDS: Lidocaine 5% Patch TD SCH (09:59)
--- NOTE | 2018-09-04 11:28 | CP.PCM.PN ---
Subjective - Date & Time of Evaluation Date of Evaluation: 09/04/18 Time of Evaluation: 10:00 - Subjective Subjective: Pt feels clinically improved His low back pain is better no fever no CP no SOB no abd pain + BM voiding freely no focal neuro deficit no signs of withdrawal Objective - Vital Signs/Intake and Output Vital Signs (last 24 hours): Temp Pulse Resp BP Pulse Ox 97.9 F 69 20 118/72 92 L 09/04/18 08:32 09/04/18 08:32 09/04/18 08:32 09/04/18 08:32 09/04/18 08:32 - Medications Medications: Current Medications Docusate Sodium (Colace) 100 mg PO BID [facility] Last Admin: 09/04/18 09:58 Dose: 100 mg Vancomycin HCl 1,500 mg/ (Sodium Chloride) 500 mls @ 333.333 mls/hr IVPB DAILY [facility]; Protocol Last Admin: 09/03/18 11:25 Dose: 333.333 mls/hr Piperacillin Sod/Tazobactam (Sod 2.25 gm/ Sodium Chloride) 100 mls @ 100 mls/hr IVPB Q8 [facility]; Protocol Last Admin: 09/04/18 09:58 Dose: 100 mls/hr Levothyroxine Sodium (Synthroid) 150 mcg PO DAILY@0630 [facility] Last Admin: 09/04/18 06:11 Dose: 150 mcg Lidocaine (Lidoderm) 1 ea TD DAILY [facility] Last Admin: 09/04/18 09:59 Dose: Not Given Pantoprazole Sodium (Protonix Ec Tab) 40 mg PO DAILY [facility] Last Admin: 09/04/18 09:58 Dose: 40 mg Tramadol HCl (Ultram) 50 mg PO Q4 PRN PRN Reason: Pain, moderate (4-7) Last Admin: 09/04/18 10:07 Dose: 50 mg Trazodone HCl (Desyrel) 50 mg PO HS [facility] Last Admin: 09/03/18 22:30 Dose: 50 mg - Labs Labs: 09/04/18 08:05 09/04/18 08:05 - Constitutional Appears: Non-toxic, No Acute Distress - Head Exam Head Exam: ATRAUMATIC, NORMAL INSPECTION, NORMOCEPHALIC - Eye Exam Eye Exam: EOMI, Normal appearance, PERRL Pupil Exam: NORMAL ACCOMODATION - ENT Exam ENT Exam: Mucous Membranes Moist, Normal External Ear Exam - Neck Exam Neck Exam: Full ROM. absent: Meningismus - Respiratory Exam Respiratory Exam: NORMAL BREATHING PATTERN. absent: Respiratory Distress - Cardiovascular Exam Cardiovascular Exam: REGULAR RHYTHM, +S1, +S2 - GI/Abdominal Exam GI & Abdominal Exam: Soft, Normal Bowel Sounds. absent: Tenderness - Extremities Exam Extremities Exam: Full ROM, Normal Capillary Refill. absent: Calf Tenderness, Joint Swelling - Back Exam Back Exam: Full ROM, vertebral tenderness (upper lumbar). absent: CVA tenderness (L), CVA tenderness (R) - Neurological Exam Neurological Exam: Alert, Awake, CN II-XII Intact, Normal Gait, Oriented x3 Neuro motor strength exam: Left Upper Extremity: 5, Right Upper Extremity: 5, Left Lower Extremity: 5, Right Lower Extremity: 5 - Psychiatric Exam Psychiatric exam: Normal Affect, Normal Mood - Skin Skin Exam: Dry, Normal Color, Warm Additional comments: needle track duncan skin popping areas noted Assessment and Plan - Assessment and Plan (Free Text) Plan: Discitis/Osteomyelitis at L1-L2, L2-L3 No Epidural Abscess on MRI - - Pt has low back pain, no neuro deficit, no saddle anesthesia, voiding freely, + BM - MRI of the L spine with Gadolinium showed Osteo/Discitis , no mention of abscess - Neurosurgery consulted- Dr Lang - rec IR consult , per IR - no intervention - Dr Alvarez ( senior technical specialist ) came to eval pt today - no surgical intervention, rec TLSO Brace -cont IV Zosyn and Vanco ( Vanco dose decreased to once daily due to DREA) - Pain Mgt - Ultram, d/c NSAIDs for now bec of DREA -Echo : no vegetation - Blood c/s : negative so far -ID consulted rec 6-8 wks of IV abx - rpt ESR in am - Active of IVDU - unable to d/c pt home with PICC due to hx of IVDU Hep C + - ff up Hep C Viral load Hypothyroidism -Levothyroxine dose increased to 150mcg - rpt TSH Acute Kidney Injury prob sec to meds ( Vanco , NSAIDs) - decrease Vanco dose to once daily, Zosyn dose also adjusted -rpt BMP in am - IVF hydration - d/c NSAIDs for now Thrombocytopenia like due to liver dis - will monitor DVT Proph - encourage ambulation - no anticoag for now due to low Platelet
--- NOTE | 2018-09-04 13:55 | CP.PCM.PN ---
Subjective - Date & Time of Evaluation Date of Evaluation: 09/04/18 Time of Evaluation: 09:00 - Subjective Subjective: events noted Objective - Vital Signs/Intake and Output Vital Signs (last 24 hours): Temp Pulse Resp BP Pulse Ox 97.9 F 69 20 118/72 92 L 09/04/18 08:32 09/04/18 08:32 09/04/18 08:32 09/04/18 08:32 09/04/18 08:32 - Medications Medications: Current Medications Docusate Sodium (Colace) 100 mg PO BID [facility] Last Admin: 09/04/18 09:58 Dose: 100 mg Vancomycin HCl 1,500 mg/ (Sodium Chloride) 500 mls @ 333.333 mls/hr IVPB DAILY [facility]; Protocol Last Admin: 09/03/18 11:25 Dose: 333.333 mls/hr Piperacillin Sod/Tazobactam (Sod 3.375 gm/ Sodium Chloride) 100 mls @ 100 mls/hr IVPB Q8 [facility]; Protocol Levothyroxine Sodium (Synthroid) 150 mcg PO DAILY@0630 [facility] Last Admin: 09/04/18 06:11 Dose: 150 mcg Lidocaine (Lidoderm) 1 ea TD DAILY [facility] Last Admin: 09/04/18 09:59 Dose: Not Given Pantoprazole Sodium (Protonix Ec Tab) 40 mg PO DAILY [facility] Last Admin: 09/04/18 09:58 Dose: 40 mg Tramadol HCl (Ultram) 50 mg PO Q4 PRN PRN Reason: Pain, moderate (4-7) Last Admin: 09/04/18 10:07 Dose: 50 mg Trazodone HCl (Desyrel) 50 mg PO HS [facility] Last Admin: 09/03/18 22:30 Dose: 50 mg - Labs Labs: 09/04/18 08:05 09/04/18 08:05 - Constitutional Appears: Non-toxic, Chronically Ill - Head Exam Head Exam: ATRAUMATIC, NORMAL INSPECTION, NORMOCEPHALIC - Eye Exam Eye Exam: EOMI, Normal appearance, PERRL Pupil Exam: NORMAL ACCOMODATION, PERRL - ENT Exam ENT Exam: Mucous Membranes Moist, Normal Exam - Neck Exam Neck Exam: Full ROM, Normal Inspection. absent: Lymphadenopathy - Respiratory Exam Respiratory Exam: Clear to Ausculation Bilateral, NORMAL BREATHING PATTERN - Cardiovascular Exam Cardiovascular Exam: REGULAR RHYTHM, +S1, +S2. absent: Murmur - GI/Abdominal Exam GI & Abdominal Exam: Soft, Normal Bowel Sounds. absent: Tenderness - Rectal Exam Rectal Exam: Deferred - Extremities Exam Extremities Exam: Full ROM, Normal Capillary Refill, Normal Inspection. absent: Joint Swelling, Pedal Edema - Back Exam Back Exam: NORMAL INSPECTION - Neurological Exam Neurological Exam: Alert, Awake, CN II-XII Intact, Normal Gait, Oriented x3 - Psychiatric Exam Psychiatric exam: Normal Affect, Normal Mood - Skin Skin Exam: Dry, Intact, Normal Color, Warm Assessment and Plan (1) Discitis Status: Acute (2) Intractable low back pain Status: Acute - Assessment and Plan (Free Text) Assessment: cont IV rx
[2018-09-04] MEDS: Piperacillin/Tazobact 3.375 GM in Sodium Chloride 0.9% 100 ML IVPB SCH (17:42)
[2018-09-05] MEDS: Piperacillin/Tazobact 3.375 GM in Sodium Chloride 0.9% 100 ML IVPB SCH ×3 (00:57→16:29)
[2018-09-05] MEDS: Levothyroxine 150 MCG TAB PO SCH (06:01)
[2018-09-05 07:04] LABS: HEMOGLOBIN 11.1 g/dL (12.0-18.0); MEAN CELL VOLUME 88.6 fl (80.0-94.0); MEAN CORPUSCULAR HEMOGLOBIN 30.4 pg (27.0-31.0); MEAN CORPUSCULAR HGB CONC 34.3 g/dL (33.0-37.0); RBC 3.66 Mil/uL (4.40-5.90); WHITE BLOOD COUNT 4.8 K/uL (4.8-10.8)
[2018-09-05 07:35] LABS: BLOOD UREA NITROGEN 14 mg/dl (9-20); CALCIUM 8.5 mg/dL (8.4-10.2); GFR NON-AFRICAN AMERICAN 52
[2018-09-05] MEDS: Lidocaine 5% Patch TD SCH (08:24)
[2018-09-05] MEDS: Pantoprazole 40 mg EC Tab PO SCH ×2 (08:25→08:34)
--- NOTE | 2018-09-05 10:51 | CP.PCM.PN ---
Subjective - Date & Time of Evaluation Date of Evaluation: 09/05/18 Time of Evaluation: 08:15 - Subjective Subjective: Patient seen and examined at bedside. Reports back pain persists and is alleviated intermittently with medication. Tolerating PO diet, has normal urine and stool output. Ambulating without difficulty. Discussed importance of wearing back brace out of bed. Objective - Vital Signs/Intake and Output Vital Signs (last 24 hours): Temp Pulse Resp BP Pulse Ox 98.5 F 75 20 154/94 H 96 09/05/18 08:40 09/05/18 08:40 09/05/18 08:40 09/05/18 08:40 09/05/18 08:40 - Medications Medications: Current Medications Acetaminophen (Tylenol 325mg Tab) 650 mg PO Q6 PRN PRN Reason: for breakthrough pain moderate Docusate Sodium (Colace) 100 mg PO BID [facility] Last Admin: 09/05/18 08:33 Dose: Not Given Piperacillin Sod/Tazobactam (Sod 3.375 gm/ Sodium Chloride) 100 mls @ 100 mls/hr IVPB Q8 [facility]; Protocol Last Admin: 09/05/18 08:25 Dose: 100 mls/hr Vancomycin HCl 1,500 mg/ (Sodium Chloride) 500 mls @ 333.333 mls/hr IVPB DAILY@1700 [facility]; Protocol Last Admin: 09/04/18 17:41 Dose: 333.333 mls/hr Sodium Chloride (Sodium Chloride 0.9%) 1,000 mls @ 150 mls/hr IV .Q6H40M [facility] Stop: 09/05/18 23:04 Lactic Acid (Lac-Hydrin 12% Cream (140 G)) 1 ea TOP BID PRN PRN Reason: Dry skin Levothyroxine Sodium (Synthroid) 175 mcg PO DAILY@0630 [facility] Lidocaine (Lidoderm) 1 ea TD DAILY [facility] Last Admin: 09/05/18 08:24 Dose: Not Given Pantoprazole Sodium (Protonix Ec Tab) 40 mg PO DAILY [facility] Last Admin: 09/05/18 08:34 Dose: Not Given Tramadol HCl (Ultram) 50 mg PO Q4 PRN PRN Reason: Pain, moderate (4-7) Last Admin: 09/05/18 01:35 Dose: 50 mg Trazodone HCl (Desyrel) 50 mg PO HS [facility] Last Admin: 09/04/18 22:06 Dose: 50 mg - Labs Labs: 09/05/18 06:00 09/05/18 06:00 - Constitutional Appears: No Acute Distress - Head Exam Head Exam: NORMAL INSPECTION - ENT Exam ENT Exam: Mucous Membranes Moist - Respiratory Exam Respiratory Exam: Clear to Ausculation Bilateral, NORMAL BREATHING PATTERN - Cardiovascular Exam Cardiovascular Exam: REGULAR RHYTHM, +S1, +S2 - GI/Abdominal Exam GI & Abdominal Exam: Soft, Normal Bowel Sounds. absent: Tenderness - Extremities Exam Extremities Exam: Full ROM. absent: Pedal Edema (very dry skin) - Back Exam Back Exam: vertebral tenderness (lumbosacral, mild-moderate). absent: rash noted - Neurological Exam Neurological Exam: Alert, Awake, Oriented x3 - Psychiatric Exam Psychiatric exam: Normal Affect, Normal Mood - Skin Skin Exam: Dry, Normal Color, Warm Assessment and Plan - Assessment and Plan (Free Text) Assessment: 42 yr old M with significant PMH of IVDA & Hepatitis C presented to the ED with 2 months of lower back & b/l hip pain with associated worsening b/l lower extremity weakness. Lumbar spine MRI resulted highly suggestive of discitis osteomyelitis of L1-L2. Patient has RUE PICC for continued IV antibiotics. Creatinine improving 1.5 today, IV antibiotic renally dose, IVF ordered. 1. Lumbar discitis osteomyelitis -MRI lumbar spine: discitis osteomyelitis of L1-L2, bulging discs with foraminal stenosis (see full report) -Lumbar spine CT: Discitis osteomylitis at L1-2 and potentionally L2-L3. Epidural abscess not excluded and MRI w/o parvez advised for better resolution. Spondylolisthesis L1-L2. -Lumbar spine x-ray: Findings most likely represent discitis osteomyelitis at L2-L3 level with partial collapse of L2 segment & retropulsion for posterior superior corner. There is also slight posterior subluzation of L1 over L2. -Neuro surgery consulted: Dr. Lang: wear TLSO brace when out of bed, ambulate as tolerated, repeat MRI in 4-6 months (sooner if clinical change) -IR consulted- no IR procedure recommended at this time -ID on board: Dr. Schrader: continue empiric antibiotics for 6 weeks and repeat imaging -IV antibiotic renally dosed; Vancomycin 1.5 gm QD (day 7) & zosyn 3.375 Q8 (day 8), Vanc trough 19.5 on 09/04/18 -continue with pain control : PRN tylenol,tramadol 50 Q4 PRN, and lidoderm patch -Blood cx no growth x 5 days, ESR 89 on 09/05/18 -f/u Quantiferon and PPD -f/u BMP 2. Acute Kidney Injury -acute, improving, likely secondary to IV antibiotics and pain medication -Creatinine 1.5 today -IV antibiotic dose adjusted due to renal dose -IVF -normal saline -encouraged patient to only request pain med PRN -vanco trough 19.5 on 09/04/18 -f/u BMP 3. Hypothyroidism -chronic, uncontrolled -patient reports prior compliance with levothyroxine 100 mcg PO QD -TSH 57.40 mIU/mL on 09/05/18 -levothyroxine dose increased to 175mcg PO QD -f/u repeat TSH in 1 week 4. Thrombocytopenia -chronic -may be secondary to Hep C -ursodiol medication discontinued (may contribute to thrombocytopenia) -will monitor 5. IVDA -ID consulted- Dr. Schrader: will follow recommendations -HIV negative, U tox + Opiates and benzodiazepines -Echo EF 60-65% no evidence of endocarditis -repeat Utox positive for opiate on 09/03/18 6. Hep C -Hepatitic C antibody positive 03/2018 and 08/31/18 -Hep B Ag and Hep B core Ab , Hep A Ab negative 08/31/18 -Hep C viral load undetectable
[2018-09-05] MEDS: Sodium Chloride 0.9% 1,000 ML IV SCH ×2 (12:39→16:27)
--- NOTE | 2018-09-05 22:24 | CP.PCM.PN ---
Subjective - Date & Time of Evaluation Date of Evaluation: 09/05/18 Time of Evaluation: 08:00 - Subjective Subjective: 42 y/o M with PMH IVDA presented with lower back and bilateal hip pain MRI showed osteomyelitis/discitis L1-L2 and possible L2-L3 ID consulted and started on IV Vanco and Zosyn Cultures with no growth so far Echo showed no vegetations Objective - Vital Signs/Intake and Output Vital Signs (last 24 hours): Temp Pulse Resp BP Pulse Ox 99 F 75 20 159/95 H 96 09/05/18 16:19 09/05/18 16:19 09/05/18 16:19 09/05/18 16:09/05/18 16:19 - Medications Medications: Current Medications Acetaminophen (Tylenol 325mg Tab) 650 mg PO Q6 PRN PRN Reason: for breakthrough pain moderate Docusate Sodium (Colace) 100 mg PO BID [facility] Last Admin: 09/05/18 16:28 Dose: Not Given Piperacillin Sod/Tazobactam (Sod 3.375 gm/ Sodium Chloride) 100 mls @ 100 mls/hr IVPB Q8 [facility]; Protocol Last Admin: 09/05/18 16:29 Dose: 100 mls/hr Vancomycin HCl 1,500 mg/ (Sodium Chloride) 500 mls @ 333.333 mls/hr IVPB DAILY@1700 [facility]; Protocol Last Admin: 09/05/18 16:29 Dose: 333.333 mls/hr Sodium Chloride (Sodium Chloride 0.9%) 1,000 mls @ 150 mls/hr IV .Q6H40M [facility] Stop: 09/05/18 23:04 Last Admin: 09/05/18 16:27 Dose: Not Given Lactic Acid (Lac-Hydrin 12% Cream (140 G)) 1 ea TOP BID PRN PRN Reason: Dry skin Levothyroxine Sodium (Synthroid) 175 mcg PO DAILY@0630 [facility] Lidocaine (Lidoderm) 1 ea TD DAILY [facility] Last Admin: 09/05/18 08:24 Dose: Not Given Pantoprazole Sodium (Protonix Ec Tab) 40 mg PO DAILY [facility] Last Admin: 09/05/18 08:34 Dose: Not Given Tramadol HCl (Ultram) 50 mg PO Q4 PRN PRN Reason: Pain, moderate (4-7) Last Admin: 09/05/18 16:38 Dose: 50 mg Trazodone HCl (Desyrel) 50 mg PO HS [facility] Last Admin: 09/05/18 20:59 Dose: 50 mg - Labs Labs: 09/05/18 06:00 09/05/18 06:00 - Constitutional Appears: Non-toxic, Chronically Ill - Head Exam Head Exam: ATRAUMATIC, NORMAL INSPECTION, NORMOCEPHALIC - Eye Exam Eye Exam: EOMI, Normal appearance, PERRL Pupil Exam: NORMAL ACCOMODATION, PERRL - ENT Exam ENT Exam: Mucous Membranes Moist, Normal Exam - Neck Exam Neck Exam: Full ROM, Normal Inspection. absent: Lymphadenopathy - Respiratory Exam Respiratory Exam: Clear to Ausculation Bilateral, NORMAL BREATHING PATTERN - Cardiovascular Exam Cardiovascular Exam: REGULAR RHYTHM, +S1, +S2. absent: Murmur - GI/Abdominal Exam GI & Abdominal Exam: Soft, Normal Bowel Sounds. absent: Tenderness - Rectal Exam Rectal Exam: Deferred - Extremities Exam Extremities Exam: Full ROM, Normal Capillary Refill, Normal Inspection. absent: Joint Swelling, Pedal Edema - Back Exam Back Exam: NORMAL INSPECTION - Neurological Exam Neurological Exam: Alert, Awake, CN II-XII Intact, Normal Gait, Oriented x3 - Psychiatric Exam Psychiatric exam: Normal Affect, Normal Mood - Skin Skin Exam: Dry, Intact, Normal Color, Warm Assessment and Plan (1) Discitis Status: Acute (2) Intractable low back pain Status: Acute - Assessment and Plan (Free Text) Assessment: 42 y/o M with PMH IVDA presented with lower back and bilateal hip pain MRI showed osteomyelitis/discitis L1-L2 and possible L2-L3 ID consulted and started on IV Vanco and Zosyn Cultures with no growth so far Echo showed no vegetations
[2018-09-06] MEDS: Piperacillin/Tazobact 3.375 GM in Sodium Chloride 0.9% 100 ML IVPB SCH ×3 (00:49→16:23)
[2018-09-06] MEDS: Levothyroxine 175 MCG TAB PO SCH (06:10)
[2018-09-06] MEDS: Pantoprazole 40 mg EC Tab PO SCH (08:22)
[2018-09-06] MEDS: Lidocaine 5% Patch TD SCH (08:23)
--- NOTE | 2018-09-06 14:56 | CP.PCM.PN ---
Subjective - Date & Time of Evaluation Date of Evaluation: 09/06/18 Time of Evaluation: 08:50 - Subjective Subjective: Patient seen and examined at bedside. In no acute distress. No acute events overnight. Complains of persistent low back and bilateral hip pain. Discussed importance of ambulating with back brace with patient and to also get out of bed and sit in chair at bedside. Patient reports ambulating to bathroom without difficulty. Objective - Vital Signs/Intake and Output Vital Signs (last 24 hours): Temp Pulse Resp BP Pulse Ox 98 F 63 20 148/91 H 94 L 09/06/18 08:10 09/06/18 08:10 09/06/18 08:10 09/06/18 08:10 09/06/18 08:10 - Medications Medications: Current Medications Acetaminophen (Tylenol 325mg Tab) 650 mg PO Q6 PRN PRN Reason: for breakthrough pain moderate Last Admin: 09/06/18 08:21 Dose: 650 mg Docusate Sodium (Colace) 100 mg PO BID [facility] Last Admin: 09/06/18 08:22 Dose: Not Given Piperacillin Sod/Tazobactam (Sod 3.375 gm/ Sodium Chloride) 100 mls @ 100 mls/hr IVPB Q8 [facility]; Protocol Last Admin: 09/06/18 08:22 Dose: 100 mls/hr Vancomycin HCl 1,500 mg/ (Sodium Chloride) 500 mls @ 333.333 mls/hr IVPB DAILY@1700 [facility]; Protocol Last Admin: 09/05/18 16:29 Dose: 333.333 mls/hr Lactic Acid (Lac-Hydrin 12% Cream (140 G)) 1 ea TOP BID PRN PRN Reason: Dry skin Levothyroxine Sodium (Synthroid) 175 mcg PO DAILY@0630 [facility] Last Admin: 09/06/18 06:10 Dose: 175 mcg Lidocaine (Lidoderm) 1 ea TD DAILY [facility] Last Admin: 09/06/18 08:23 Dose: 1 ea Pantoprazole Sodium (Protonix Ec Tab) 40 mg PO DAILY [facility] Last Admin: 09/06/18 08:22 Dose: Not Given Tramadol HCl (Ultram) 50 mg PO Q4 PRN PRN Reason: Pain, moderate (4-7) Last Admin: 09/06/18 10:29 Dose: 50 mg Trazodone HCl (Desyrel) 50 mg PO HS [facility] Last Admin: 09/05/18 20:59 Dose: 50 mg - Labs Labs: 09/05/18 06:00 09/05/18 06:00 - Constitutional Appears: No Acute Distress - Head Exam Head Exam: NORMAL INSPECTION - Eye Exam Eye Exam: EOMI, PERRL - ENT Exam ENT Exam: Mucous Membranes Moist - Neck Exam Neck Exam: Full ROM - Respiratory Exam Respiratory Exam: NORMAL BREATHING PATTERN - Cardiovascular Exam Cardiovascular Exam: REGULAR RHYTHM, +S1, +S2 - GI/Abdominal Exam GI & Abdominal Exam: Soft, Normal Bowel Sounds. absent: Tenderness - Extremities Exam Extremities Exam: absent: Calf Tenderness, Pedal Edema - Neurological Exam Neurological Exam: Alert, Awake, Oriented x3 - Psychiatric Exam Psychiatric exam: Normal Affect, Normal Mood - Skin Skin Exam: Dry, Normal Color, Warm Assessment and Plan - Assessment and Plan (Free Text) Assessment: 42 yr old M with significant PMH of IVDA & Hepatitis C presented to the ED with 2 months of lower back & b/l hip pain with associated worsening b/l lower extremity weakness. Lumbar spine MRI resulted highly suggestive of discitis oste omyelitis of L1-L2. Patient has RUE PICC for continued IV antibiotics. IV antibiotic renally dose. 1. Lumbar discitis osteomyelitis -MRI lumbar spine: discitis osteomyelitis of L1-L2, bulging discs with foraminal stenosis (see full report) -Lumbar spine CT: Discitis osteomylitis at L1-2 and potentionally L2-L3. Epidural abscess not excluded and MRI w/o parvez advised for better resolution. Spondylolisthesis L1-L2. -Lumbar spine x-ray: Findings most likely represent discitis osteomyelitis at L2-L3 level with partial collapse of L2 segment & retropulsion for posterior villalta perior corner. There is also slight posterior subluzation of L1 over L2. -Neuro surgery consulted: Dr. Lang: wear TLSO brace when out of bed, ambulate as tolerated, repeat MRI in 4-6 months (sooner if clinical change) -IR consulted- no IR procedure recommended at this time -ID on board: Dr. Schrader: continue empiric antibiotics for 6 weeks and repeat imaging -IV antibiotic renally dosed; Vancomycin 1.5 gm QD (day 10) & zosyn 3.375 Q8 (day 10), Vanc trough 19.5 on 09/04/18 -continue with pain control : PRN tylenol,tramadol 50 Q4 PRN, and lidoderm patch -Blood cx no growth x 5 days, ESR 89 on 09/05/18 -f/u Quantiferon, PPD negative -f/u BMP 2. Acute Kidney Injury -acute, improving, likely secondary to IV antibiotics and pain medication -Creatinine 1.5 -IV antibiotic dose adjusted due to renal dose -IVF -normal saline -encouraged patient to only request pain med PRN -vanco trough 19.5 on 09/04/18 -f/u BMP 3. Hypothyroidism -chronic, uncontrolled -patient reports prior compliance with levothyroxine 100 mcg PO QD -TSH 57.40 mIU/mL on 09/05/18 -levothyroxine dose increased to 175mcg PO QD -f/u repeat TSH in 1 week 4. Thrombocytopenia -chronic -may be secondary to Hep C -ursodiol medication discontinued (may contribute to thrombocytopenia) -will monitor 5. IVDA -ID consulted- Dr. Schrader: will follow recommendations -HIV negative, U tox + Opiates and benzodiazepines -Echo EF 60-65% no evidence of endocarditis -repeat Utox positive for opiate on 09/03/18 6. Hep C -Hepatitic C antibody positive 03/2018 and 08/31/18 -Hep B Ag and Hep B core Ab , Hep A Ab negative 08/31/18 -Hep C viral load undetectable
[2018-09-07] MEDS: Levothyroxine 175 MCG TAB PO SCH (05:40)
[2018-09-07 07:08] LABS: BLOOD UREA NITROGEN 14 mg/dl (9-20); CALCIUM 7.9 mg/dL (8.4-10.2); GFR NON-AFRICAN AMERICAN > 60
[2018-09-07] MEDS: Piperacillin/Tazobact 3.375 GM in Sodium Chloride 0.9% 100 ML IVPB SCH ×2 (08:23→16:08)
[2018-09-07] MEDS: Pantoprazole 40 mg EC Tab PO SCH (08:24)
[2018-09-07] MEDS: Lidocaine 5% Patch TD SCH (08:24)
--- NOTE | 2018-09-07 12:51 | CP.PCM.PN ---
Subjective - Date & Time of Evaluation Date of Evaluation: 09/07/18 Time of Evaluation: 08:35 - Subjective Subjective: Patient seen and examined at bedside. In no acute distress. Reports back pain persists and is controlled with medication. Denies chest pain, SOB, weakness or dizziness. Objective - Vital Signs/Intake and Output Vital Signs (last 24 hours): Temp Pulse Resp BP Pulse Ox 97.4 F L 60 18 150/90 99 09/07/18 08:31 09/07/18 08:31 09/07/18 08:31 09/07/18 08:31 09/07/18 08:31 - Medications Medications: Current Medications Acetaminophen (Tylenol 325mg Tab) 650 mg PO Q6 PRN PRN Reason: for breakthrough pain moderate Last Admin: 09/06/18 20:01 Dose: 650 mg Docusate Sodium (Colace) 100 mg PO BID [facility] Last Admin: 09/07/18 08:22 Dose: Not Given Piperacillin Sod/Tazobactam (Sod 3.375 gm/ Sodium Chloride) 100 mls @ 100 mls/hr IVPB Q8 [facility]; Protocol Last Admin: 09/07/18 08:23 Dose: 100 mls/hr Vancomycin HCl 1,500 mg/ (Sodium Chloride) 500 mls @ 333.333 mls/hr IVPB DAILY@1700 [facility]; Protocol Last Admin: 09/06/18 17:37 Dose: 333.333 mls/hr Ketorolac Tromethamine (Toradol) 15 mg IVP Q6 PRN PRN Reason: Pain, severe (8-10) Last Admin: 09/07/18 12:11 Dose: 15 mg Lactic Acid (Lac-Hydrin 12% Cream (140 G)) 1 ea TOP BID PRN PRN Reason: Dry skin Levothyroxine Sodium (Synthroid) 175 mcg PO DAILY@0630 [facility] Last Admin: 09/07/18 05:40 Dose: 175 mcg Lidocaine (Lidoderm) 1 ea TD DAILY [facility] Last Admin: 09/07/18 08:24 Dose: 1 ea Pantoprazole Sodium (Protonix Ec Tab) 40 mg PO DAILY [facility] Last Admin: 09/07/18 08:24 Dose: 40 mg Tramadol HCl (Ultram) 50 mg PO Q4 PRN PRN Reason: Pain, moderate (4-7) Last Admin: 09/06/18 19:04 Dose: 50 mg Trazodone HCl (Desyrel) 50 mg PO HS [facility] Last Admin: 09/06/18 21:06 Dose: 50 mg - Labs Labs: 09/05/18 06:00 09/07/18 05:50 - Constitutional Appears: No Acute Distress - Head Exam Head Exam: ATRAUMATIC - ENT Exam ENT Exam: Mucous Membranes Moist - Respiratory Exam Respiratory Exam: Clear to Ausculation Bilateral, NORMAL BREATHING PATTERN - Cardiovascular Exam Cardiovascular Exam: REGULAR RHYTHM, +S1, +S2 - GI/Abdominal Exam GI & Abdominal Exam: Soft, Normal Bowel Sounds. absent: Tenderness - Extremities Exam Extremities Exam: Full ROM. absent: Calf Tenderness, Pedal Edema - Neurological Exam Neurological Exam: Alert, Awake, Oriented x3 - Psychiatric Exam Psychiatric exam: Normal Affect, Normal Mood - Skin Skin Exam: Dry, Normal Color, Warm Assessment and Plan - Assessment and Plan (Free Text) Assessment: 42 yr old M with significant PMH of IVDA & Hepatitis C presented to the ED with 2 months of lower back & b/l hip pain with associated worsening b/l lower extremity weakness. Lumbar spine MRI resulted highly suggestive of discitis osteomyelitis of L1-L2. Patient has RUE PICC for continued IV antibiotics. IV antibiotic renally dose. 1. Lumbar discitis osteomyelitis -MRI lumbar spine: discitis osteomyelitis of L1-L2, bulging discs with foraminal stenosis (see full report) -Lumbar spine CT: Discitis osteomylitis at L1-2 and potentionally L2-L3. Epidural abscess not excluded and MRI w/o parvez advised for better resolution. Spondylolisthesis L1-L2. -Lumbar spine x-ray: Findings most likely represent discitis osteomyelitis at L2-L3 level with partial collapse of L2 segment & retropulsion for posterior superior corner. There is also slight posterior subluzation of L1 over L2. -Neuro surgery consulted: Dr. Lang: wear TLSO brace when out of bed, ambulate as tolerated, repeat MRI in 4-6 months (sooner if clinical change) -IR consulted- no IR procedure recommended at this time -ID on board: Dr. Schrader: continue empiric antibiotics for 6 weeks and repeat imaging -IV antibiotic renally dosed; Vancomycin 1.5 gm QD (day 11) & zosyn 3.375 Q8 (day 11), Vanc trough 19.5 on 09/04/18 -continue with pain control : PRN tylenol,tramadol 50 Q4 PRN, and lidoderm patch -Blood cx no growth x 5 days, ESR 89 on 09/05/18 -Quantiferon negative, PPD negative -f/u BMP 2. Acute Kidney Injury -acute, resolved likely secondary to IV antibiotics and pain medication -Creatinine 1.3 -IV antibiotic dose adjusted due to renal dose -encouraged patient to only request pain med PRN -vanco trough 19.5 on 09/04/18 -f/u BMP, repeat vanco 3. Hypothyroidism -chronic, uncontrolled -patient reports prior compliance with levothyroxine 100 mcg PO QD -TSH 57.40 mIU/mL on 09/05/18 -levothyroxine dose increased to 175mcg PO QD -f/u repeat TSH in 1 week 4. Thrombocytopenia -chronic -may be secondary to Hep C -ursodiol medication discontinued (may contribute to thrombocytopenia) -will monitor 5. IVDA -ID consulted- Dr. Schrader: will follow recommendations -HIV negative, U tox + Opiates and benzodiazepines -Echo EF 60-65% no evidence of endocarditis -repeat Utox positive for opiate on 09/03/18 6. Hep C -Hepatitic C antibody positive 03/2018 and 08/31/18 -Hep B Ag and Hep B core Ab , Hep A Ab negative 08/31/18 -Hep C viral load undetectable
[2018-09-08] MEDS: Piperacillin/Tazobact 3.375 GM in Sodium Chloride 0.9% 100 ML IVPB SCH ×3 (00:02→22:04)
[2018-09-08] MEDS: Levothyroxine 175 MCG TAB PO SCH (06:00)
[2018-09-08 07:04] LABS: BASO % 0.8 % (0.0-2.0); EOS # 0.2 K/uL (0.0-0.7); EOS % 3.6 % (0.0-4.0); HEMOGLOBIN 12.9 g/dL (12.0-18.0); LYMPH # 1.1 K/uL (1.0-4.3); LYMPH % 21.5 % (20.0-40.0); MEAN CELL VOLUME 89.9 fl (80.0-94.0); MEAN CORPUSCULAR HEMOGLOBIN 30.5 pg (27.0-31.0); MEAN PLATELET VOLUME 8.3 fl (7.2-11.7); MONO # 0.5 K/uL (0.0-0.8); MONO % 9.3 % (0.0-10.0); NEUT # 3.4 K/uL (1.8-7.0); NEUT % 64.8 % (50.0-75.0); NRBC % 0.4 % (0.0-0.0); RBC 4.23 Mil/uL (4.40-5.90); RED CELL DISTRIBUTION WIDTH 15.6 % (11.5-14.5); WHITE BLOOD COUNT 5.2 K/uL (4.8-10.8)
[2018-09-08 07:17] LABS: BLOOD UREA NITROGEN 13 mg/dl (9-20); CALCIUM 8.6 mg/dL (8.4-10.2); GFR NON-AFRICAN AMERICAN 56
[2018-09-08] MEDS: Pantoprazole 40 mg EC Tab PO SCH (09:21)
[2018-09-08] MEDS: Lidocaine 5% Patch TD SCH (09:22)
[2018-09-08] MEDS: Ammonium Lactate 12% Cream (140 g) TOP PRN (09:23)
--- NOTE | 2018-09-08 13:50 | CP.PCM.PN ---
<Diana Avalos - Last Filed: 09/08/18 13:43> Subjective - Date & Time of Evaluation Date of Evaluation: 09/08/18 Time of Evaluation: 08:35 - Subjective Subjective: Patient seen and examined at bedside. In no acute distress. Reports he is getting out of bed, using brace and sitting in chair intermittently. Denies lower extremity weakness, numbness or tingling. Reports normal urine and stool output. Objective - Vital Signs/Intake and Output Vital Signs (last 24 hours): Temp Pulse Resp BP Pulse Ox 98.4 F 90 18 155/91 H 96 09/08/18 09:00 09/08/18 09:00 09/08/18 09:00 09/08/18 09:00 09/08/18 09:00 - Medications Medications: Current Medications Acetaminophen (Tylenol 325mg Tab) 650 mg PO Q6 PRN PRN Reason: for breakthrough pain moderate Last Admin: 09/06/18 20:01 Dose: 650 mg Docusate Sodium (Colace) 100 mg PO BID [facility] Last Admin: 09/08/18 09:25 Dose: Not Given Piperacillin Sod/Tazobactam (Sod 3.375 gm/ Sodium Chloride) 100 mls @ 100 mls/hr IVPB Q8 [facility]; Protocol Last Admin: 09/08/18 09:20 Dose: 100 mls/hr Vancomycin HCl 1,500 mg/ (Sodium Chloride) 500 mls @ 333.333 mls/hr IVPB DAILY@1700 [facility]; Protocol Last Admin: 09/07/18 19:03 Dose: 333.333 mls/hr Ketorolac Tromethamine (Toradol) 15 mg IVP Q6 PRN PRN Reason: Pain, severe (8-10) Last Admin: 09/08/18 12:12 Dose: 15 mg Lactic Acid (Lac-Hydrin 12% Cream (140 G)) 1 ea TOP BID PRN PRN Reason: Dry skin Last Admin: 09/08/18 09:23 Dose: 1 ea Levothyroxine Sodium (Synthroid) 175 mcg PO DAILY@0630 [facility] Last Admin: 09/08/18 06:00 Dose: 175 mcg Lidocaine (Lidoderm) 1 ea TD DAILY [facility] Last Admin: 09/08/18 09:22 Dose: 1 ea Pantoprazole Sodium (Protonix Ec Tab) 40 mg PO DAILY [facility] Last Admin: 09/08/18 09:21 Dose: 40 mg Tramadol HCl (Ultram) 50 mg PO Q4 PRN PRN Reason: Pain, moderate (4-7) Last Admin: 09/08/18 09:19 Dose: 50 mg Trazodone HCl (Desyrel) 50 mg PO HS [facility] Last Admin: 09/07/18 21:26 Dose: 50 mg - Labs Labs: 09/08/18 06:05 09/08/18 06:05 - Constitutional Appears: No Acute Distress - Head Exam Head Exam: ATRAUMATIC - Eye Exam Eye Exam: EOMI - ENT Exam ENT Exam: Mucous Membranes Moist - Respiratory Exam Respiratory Exam: Clear to Ausculation Bilateral, NORMAL BREATHING PATTERN - Cardiovascular Exam Cardiovascular Exam: REGULAR RHYTHM, +S1, +S2 - GI/Abdominal Exam GI & Abdominal Exam: Soft, Normal Bowel Sounds. absent: Tenderness - Extremities Exam Extremities Exam: Full ROM. absent: Calf Tenderness, Pedal Edema - Neurological Exam Neurological Exam: Alert, Awake, Oriented x3 - Psychiatric Exam Psychiatric exam: Normal Affect, Normal Mood - Skin Skin Exam: Dry, Normal Color, Warm Assessment and Plan - Assessment and Plan (Free Text) Assessment: 42 yr old M with significant PMH of IVDA & Hepatitis C presented to the ED with 2 months of lower back & b/l hip pain with associated worsening b/l lower extremity weakness. Lumbar spine MRI resulted highly suggestive of discitis osteomyelitis of L1-L2. Patient has RUE PICC for continued IV antibiotics. IV antibiotic renally dosed. 1. Lumbar discitis osteomyelitis -MRI lumbar spine: discitis osteomyelitis of L1-L2, bulging discs with foraminal stenosis (see full report) -Lumbar spine CT: Discitis osteomylitis at L1-2 and potentionally L2-L3. Epidural abscess not excluded and MRI w/o parvez advised for better resolution. Spondylolisthesis L1-L2. -Lumbar spine x-ray: Findings most likely represent discitis osteomyelitis at L2-L3 level with partial collapse of L2 segment & retropulsion for posterior superior corner. There is also slight posterior subluzation of L1 over L2. -Neuro surgery consulted: Dr. Lang: wear TLSO brace when out of bed, ambulate as tolerated, repeat MRI in 4-6 months (sooner if clinical change) -IR consulted- no IR procedure recommended at this time -ID on board: Dr. Schrader: continue empiric antibiotics for 6 weeks and repeat imaging -IV antibiotic renally dosed; Vancomycin 1.5 gm QD (day 12) & zosyn 3.375 Q8 (day 12), Vanc trough 12.9 on 09/07/18 -continue with pain control : PRN tylenol, tramadol 50 Q4 PRN, and lidoderm patch -Blood cx no growth x 5 days, ESR 89 on 09/05/18 -Quantiferon negative, PPD negative -f/u BMP 2. Acute Kidney Injury -acute, resolved likely secondary to IV antibiotics and pain medication -Creatinine 1.4 -IV antibiotic dose adjusted due to renal dose -encouraged patient to only request pain med PRN -vanco trough 12.9 on 09/07/18 -f/u BMP 3. Hypothyroidism -chronic, uncontrolled -patient reports prior compliance with levothyroxine 100 mcg PO QD -TSH 57.40 mIU/mL on 09/05/18 -levothyroxine dose increased to 175mcg PO QD -f/u repeat TSH in 1 week 4. Thrombocytopenia -chronic, stable -may be secondary to Hep C -ursodiol medication discontinued (may contribute to thrombocytopenia) -will monitor 5. IVDA -ID consulted- Dr. Schrader: will follow recommendations -HIV negative, U tox + Opiates and benzodiazepines -Echo EF 60-65% no evidence of endocarditis -repeat Utox positive for opiate on 09/03/18 6. Hep C -Hepatitic C antibody positive 03/2018 and 08/31/18 -Hep B Ag and Hep B core Ab , Hep A Ab negative 08/31/18 -Hep C viral load undetectable <Kely Coughlin - Last Filed: 09/08/18 16:23> Objective - Vital Signs/Intake and Output Vital Signs (last 24 hours): Temp Pulse Resp BP Pulse Ox 97.6 F 62 19 155/91 H 99 09/08/18 16:14 09/08/18 16:14 09/08/18 16:14 09/08/18 09:00 09/08/18 16:14 - Medications Medications: Current Medications Acetaminophen (Tylenol 325mg Tab) 650 mg PO Q6 PRN PRN Reason: for breakthrough pain moderate Last Admin: 09/06/18 20:01 Dose: 650 mg Docusate Sodium (Colace) 100 mg PO BID [facility] Last Admin: 09/08/18 09:25 Dose: Not Given Piperacillin Sod/Tazobactam (Sod 3.375 gm/ Sodium Chloride) 100 mls @ 100 mls/hr IVPB Q8 [facility]; Protocol Last Admin: 09/08/18 09:20 Dose: 100 mls/hr Vancomycin HCl 1,500 mg/ (Sodium Chloride) 500 mls @ 333.333 mls/hr IVPB DAILY@1700 [facility]; Protocol Last Admin: 09/07/18 19:03 Dose: 333.333 mls/hr Ketorolac Tromethamine (Toradol) 15 mg IVP Q6 PRN PRN Reason: Pain, severe (8-10) Last Admin: 09/08/18 12:12 Dose: 15 mg Lactic Acid (Lac-Hydrin 12% Cream (140 G)) 1 ea TOP BID PRN PRN Reason: Dry skin Last Admin: 09/08/18 09:23 Dose: 1 ea Levothyroxine Sodium (Synthroid) 175 mcg PO DAILY@0630 [facility] Last Admin: 09/08/18 06:00 Dose: 175 mcg Lidocaine (Lidoderm) 1 ea TD DAILY [facility] Last Admin: 09/08/18 09:22 Dose: 1 ea Pantoprazole Sodium (Protonix Ec Tab) 40 mg PO DAILY [facility] Last Admin: 09/08/18 09:21 Dose: 40 mg Tramadol HCl (Ultram) 50 mg PO Q4 PRN PRN Reason: Pain, moderate (4-7) Last Admin: 09/08/18 09:19 Dose: 50 mg Trazodone HCl (Desyrel) 50 mg PO HS [facility] Last Admin: 09/07/18 21:26 Dose: 50 mg - Labs Labs: 09/08/18 06:05 09/08/18 06:05 Attending/Attestation - Attestation I have personally seen and examined this patient.: Yes I have fully participated in the care of the patient.: Yes I have reviewed all pertinent clinical information, including history, physical exam and plan: Yes Notes (Text): Discitis/Osteomyelitis at L1-L2, L2-L3 No Epidural Abscess on MRI - - Pt has low back pain, no neuro deficit, no saddle anesthesia, voiding freely, + BM - MRI of the L spine with Gadolinium showed Osteo/Discitis , no mention of abscess - Neurosurgery consulted- Dr Lang - rec IR consult , per IR - no intervention - Dr Alvarez ( glaucoma specialist ) came to eval pt today - no surgical intervention, rec TLSO Brace -cont IV Zosyn and Vanco ( Vanco dose decreased to once daily due to DREA) - Pain Mgt -Echo : no vegetation - Blood c/s : negative so far -ID consulted rec 6-8 wks of IV abx Active of IVDU - unable to d/c pt home with PICC due to hx of IVDU Hep C + - Hep C Viral load: undetectable Hypothyroidism - still elevated TSH -Levothyroxine dose increased to 175mcg Acute Kidney Injury prob sec to meds ( Vanco , NSAIDs) - decreased Vanco dose to once daily - IVF hydration Thrombocytopenia like due to liver dis - will monitor DVT Proph - encourage ambulation - no anticoag for now due to low Platelet
[2018-09-09] MEDS: Piperacillin/Tazobact 3.375 GM in Sodium Chloride 0.9% 100 ML IVPB SCH ×3 (03:44→16:22)
[2018-09-09] MEDS: Levothyroxine 175 MCG TAB PO SCH (05:44)
[2018-09-09] MEDS: Pantoprazole 40 mg EC Tab PO SCH (09:08)
[2018-09-09] MEDS: Lidocaine 5% Patch TD SCH (09:09)
--- NOTE | 2018-09-09 15:52 | CP.PCM.PN ---
<Diana Avalos - Last Filed: 09/09/18 15:58> Subjective - Date & Time of Evaluation Date of Evaluation: 09/09/18 Time of Evaluation: 08:20 - Subjective Subjective: Patient seen and examined at bedside. In no acute distress. Reports tolerating ambulating with back brace. Denies lower extremity weakness, numbness or tingling. Objective - Vital Signs/Intake and Output Vital Signs (last 24 hours): Temp Pulse Resp BP Pulse Ox 98.0 F 79 20 131/80 96 09/09/18 08:25 09/09/18 08:25 09/09/18 08:25 09/09/18 08:25 09/09/18 08:25 - Medications Medications: Current Medications Acetaminophen (Tylenol 325mg Tab) 650 mg PO Q6 PRN PRN Reason: for breakthrough pain moderate Last Admin: 09/06/18 20:01 Dose: 650 mg Docusate Sodium (Colace) 100 mg PO BID [facility] Last Admin: 09/09/18 09:08 Dose: Not Given Vancomycin HCl 1,500 mg/ (Sodium Chloride) 500 mls @ 333.333 mls/hr IVPB DAILY@1700 [facility]; Protocol Last Admin: 09/08/18 17:23 Dose: 333.333 mls/hr Piperacillin Sod/Tazobactam (Sod 3.375 gm/ Sodium Chloride) 100 mls @ 100 mls/hr IVPB Q6 [facility]; Protocol Last Admin: 09/09/18 09:08 Dose: 100 mls/hr Ketorolac Tromethamine (Toradol) 15 mg IVP Q6 PRN PRN Reason: Pain, severe (8-10) Last Admin: 09/09/18 13:22 Dose: 15 mg Lactic Acid (Lac-Hydrin 12% Cream (140 G)) 1 ea TOP BID PRN PRN Reason: Dry skin Last Admin: 09/08/18 09:23 Dose: 1 ea Levothyroxine Sodium (Synthroid) 175 mcg PO DAILY@0630 [facility] Last Admin: 09/09/18 05:44 Dose: 175 mcg Lidocaine (Lidoderm) 1 ea TD DAILY [facility] Last Admin: 09/09/18 09:09 Dose: 1 ea Pantoprazole Sodium (Protonix Ec Tab) 40 mg PO DAILY [facility] Last Admin: 09/09/18 09:08 Dose: Not Given Tramadol HCl (Ultram) 50 mg PO Q4 PRN PRN Reason: Pain, moderate (4-7) Last Admin: 09/09/18 03:50 Dose: 50 mg Trazodone HCl (Desyrel) 50 mg PO HS [facility] Last Admin: 09/08/18 22:03 Dose: 50 mg - Labs Labs: 09/08/18 06:05 09/08/18 06:05 - Constitutional Appears: No Acute Distress - Head Exam Head Exam: ATRAUMATIC, NORMOCEPHALIC - Eye Exam Eye Exam: EOMI - ENT Exam ENT Exam: Mucous Membranes Moist - Neck Exam Neck Exam: Full ROM - Respiratory Exam Respiratory Exam: Clear to Ausculation Bilateral, NORMAL BREATHING PATTERN - Cardiovascular Exam Cardiovascular Exam: REGULAR RHYTHM, +S1, +S2 - GI/Abdominal Exam GI & Abdominal Exam: Soft, Normal Bowel Sounds. absent: Tenderness - Extremities Exam Extremities Exam: Full ROM. absent: Calf Tenderness, Pedal Edema - Back Exam Back Exam: vertebral tenderness (mild, midline lumbar) - Neurological Exam Neurological Exam: Alert, Awake, CN II-XII Intact, Oriented x3 - Psychiatric Exam Psychiatric exam: Normal Affect, Normal Mood - Skin Skin Exam: Dry, Normal Color, Warm Assessment and Plan - Assessment and Plan (Free Text) Assessment: 42 yr old M with significant PMH of IVDA & Hepatitis C presented to the ED with 2 months of lower back & b/l hip pain with associated worsening b/l lower extremity weakness. Lumbar spine MRI resulted highly suggestive of discitis osteomyelitis of L1-L2. Patient has RUE PICC for continued IV antibiotics. IV antibiotic renally dosed. 1. Lumbar discitis osteomyelitis -MRI lumbar spine: discitis osteomyelitis of L1-L2, bulging discs with foraminal stenosis (see full report) -Lumbar spine CT: Discitis osteomylitis at L1-2 and potentionally L2-L3. Epidural abscess not excluded and MRI w/o parvez advised for better resolution. Spondylolisthesis L1-L2. -Lumbar spine x-ray: Findings most likely represent discitis osteomyelitis at L2-L3 level with partial collapse of L2 segment & retropulsion for posterior superior corner. There is also slight posterior subluzation of L1 over L2. -Neuro surgery consulted: Dr. Lang: wear TLSO brace when out of bed, a mbulate as tolerated, repeat MRI in 4-6 months (sooner if clinical change) -IR consulted- no IR procedure recommended at this time -ID on board: Dr. Schrader: continue empiric antibiotics for 6 weeks and repeat imaging -IV antibiotic renally dosed; Vancomycin 1.5 gm QD (day 13) & zosyn 3.375 Q8 (day 13), Vanc trough 12.9 on 09/07/18 -continue with pain control : PRN tylenol, tramadol 50 Q4 PRN, and lidoderm patch -Blood cx no growth x 5 days, ESR 89 on 09/05/18 -Quantiferon negative, PPD negative -f/u BMP 2. Acute Kidney Injury -acute, improved, likely secondary to IV antibiotics and pain medication -Creatinine 1.4 -IV antibiotic dose adjusted due to renal dose -encouraged patient to only request pain med PRN -vanco trough 12.9 on 09/07/18 -f/u BMP, vanc trough 3. Hypothyroidism -chronic, uncontrolled -patient reports prior compliance with levothyroxine 100 mcg PO QD -TSH 57.40 mIU/mL on 09/05/18 -levothyroxine dose increased to 175mcg PO QD -f/u repeat TSH in 1 week 4. Thrombocytopenia -chronic, improving -may be secondary to Hep C -ursodiol medication discontinued (may contribute to thrombocytopenia) -will monitor 5. IVDA -ID consulted- Dr. Schrader: will follow recommendations -HIV negative, U tox + Opiates and benzodiazepines -Echo EF 60-65% no evidence of endocarditis -repeat Utox positive for opiate on 09/03/18 6. Hep C -Hepatitic C antibody positive 03/2018 and 08/31/18 -Hep B Ag and Hep B core Ab , Hep A Ab negative 08/31/18 -Hep C viral load undetectable <Kely Coughlin - Last Filed: 09/09/18 17:59> Objective - Vital Signs/Intake and Output Vital Signs (last 24 hours): Temp Pulse Resp BP Pulse Ox 98 F 65 20 137/84 96 09/09/18 16:13 09/09/18 16:13 09/09/18 16:13 09/09/18 16:13 09/09/18 16:13 - Medications Medications: Current Medications Acetaminophen (Tylenol 325mg Tab) 650 mg PO Q6 PRN PRN Reason: for breakthrough pain moderate Last Admin: 09/06/18 20:01 Dose: 650 mg Docusate Sodium (Colace) 100 mg PO BID [facility] Last Admin: 09/09/18 16:21 Dose: Not Given Vancomycin HCl 1,500 mg/ (Sodium Chloride) 500 mls @ 333.333 mls/hr IVPB DAILY@1700 [facility]; Protocol Last Admin: 09/09/18 17:44 Dose: 333.333 mls/hr Piperacillin Sod/Tazobactam (Sod 3.375 gm/ Sodium Chloride) 100 mls @ 100 mls/hr IVPB Q6 [facility]; Protocol Last Admin: 09/09/18 16:22 Dose: 100 mls/hr Ketorolac Tromethamine (Toradol) 15 mg IVP Q6 PRN PRN Reason: Pain, severe (8-10) Last Admin: 09/09/18 13:22 Dose: 15 mg Lactic Acid (Lac-Hydrin 12% Cream (140 G)) 1 ea TOP BID PRN PRN Reason: Dry skin Last Admin: 09/08/18 09:23 Dose: 1 ea Levothyroxine Sodium (Synthroid) 175 mcg PO DAILY@0630 [facility] Last Admin: 09/09/18 05:44 Dose: 175 mcg Lidocaine (Lidoderm) 1 ea TD DAILY [facility] Last Admin: 09/09/18 09:09 Dose: 1 ea Pantoprazole Sodium (Protonix Ec Tab) 40 mg PO DAILY [facility] Last Admin: 09/09/18 09:08 Dose: Not Given Tramadol HCl (Ultram) 50 mg PO Q4 PRN PRN Reason: Pain, moderate (4-7) Last Admin: 09/09/18 03:50 Dose: 50 mg Trazodone HCl (Desyrel) 50 mg PO HS [facility] Last Admin: 09/08/18 22:03 Dose: 50 mg - Labs Labs: 09/09/18 16:10 09/09/18 16:10 Attending/Attestation - Attestation I have personally seen and examined this patient.: Yes I have fully participated in the care of the patient.: Yes I have reviewed all pertinent clinical information, including history, physical exam and plan: Yes Notes (Text): Discitis/Osteomyelitis at L1-L2, L2-L3 No Epidural Abscess on MRI - - Pt has low back pain, no neuro deficit, no saddle anesthesia, voiding freely, + BM - MRI of the L spine with Gadolinium showed Osteo/Discitis , no mention of abscess - Neurosurgery consulted- Dr Lang - rec IR consult , per IR - no intervention - Dr Alvarez ( career specialist ) came to eval pt today - no surgical interve ntion, rec TLSO Brace -cont IV Zosyn and Vanco ( Vanco dose decreased to once daily due to DREA) - Pain Mgt -Echo : no vegetation - Blood c/s : negative so far -ID consulted rec 6-8 wks of IV abx Active of IVDU - unable to d/c pt home with PICC due to hx of IVDU Hep C + - Hep C Viral load: undetectable Hypothyroidism - still elevated TSH -Levothyroxine dose increased to 175mcg Acute Kidney Injury prob sec to meds ( Vanco , NSAIDs) - decreased Vanco dose to once daily - IVF hydration Thrombocytopenia like due to liver dis - will monitor DVT Proph - encourage ambulation - no anticoag for now due to low Platelet
[2018-09-09 17:10] LABS: BASO # 0.1 K/uL (0.0-0.2); BASO % 1.3 % (0.0-2.0); EOS # 0.2 K/uL (0.0-0.7); EOS % 4.4 % (0.0-4.0); HEMOGLOBIN 11.7 g/dL (12.0-18.0); LYMPH # 0.8 K/uL (1.0-4.3); LYMPH % 19.3 % (20.0-40.0); MEAN CELL VOLUME 90.5 fl (80.0-94.0); MEAN CORPUSCULAR HEMOGLOBIN 30.1 pg (27.0-31.0); MEAN CORPUSCULAR HGB CONC 33.3 g/dL (33.0-37.0); MONO # 0.4 K/uL (0.0-0.8); NEUT # 2.7 K/uL (1.8-7.0); NRBC % 0.1 % (0.0-0.0); RBC 3.88 Mil/uL (4.40-5.90); RED CELL DISTRIBUTION WIDTH 15.5 % (11.5-14.5); WHITE BLOOD COUNT 4.2 K/uL (4.8-10.8)
[2018-09-10] MEDS: Piperacillin/Tazobact 3.375 GM in Sodium Chloride 0.9% 100 ML IVPB SCH ×3 (00:29→16:26)
[2018-09-10] MEDS: Levothyroxine 175 MCG TAB PO SCH (05:53)
[2018-09-10 07:21] LABS: CALCIUM 8.2 mg/dL (8.4-10.2)
[2018-09-10] MEDS: Ammonium Lactate 12% Cream (140 g) TOP PRN (09:01)
[2018-09-10] MEDS: Sodium Chloride 0.9% 1,000 ML IV SCH ×2 (09:01→11:29)
[2018-09-10] MEDS: Lidocaine 5% Patch TD SCH ×2 (09:02→09:07)
--- NOTE | 2018-09-10 15:28 | CP.PCM.PN ---
Subjective - Date & Time of Evaluation Date of Evaluation: 09/10/18 Time of Evaluation: 14:00 - Subjective Subjective: Patient seen and examined. Denied any complaint Objective - Vital Signs/Intake and Output Vital Signs (last 24 hours): Temp Pulse Resp BP Pulse Ox 98.7 F 68 20 158/96 H 96 09/10/18 08:34 09/10/18 08:34 09/10/18 08:34 09/10/18 08:34 09/10/18 08:34 - Medications Medications: Current Medications Acetaminophen (Tylenol 325mg Tab) 650 mg PO Q6 PRN PRN Reason: for breakthrough pain moderate Last Admin: 09/06/18 20:01 Dose: 650 mg Docusate Sodium (Colace) 100 mg PO BID [facility] Last Admin: 09/10/18 08:55 Dose: Not Given Vancomycin HCl 1,500 mg/ (Sodium Chloride) 500 mls @ 333.333 mls/hr IVPB DAILY@1700 [facility]; Protocol Last Admin: 09/09/18 17:44 Dose: 333.333 mls/hr Piperacillin Sod/Tazobactam (Sod 3.375 gm/ Sodium Chloride) 100 mls @ 100 mls/hr IVPB Q8 [facility]; Protocol Last Admin: 09/10/18 09:01 Dose: 100 mls/hr Ketorolac Tromethamine (Toradol) 15 mg IVP Q6 PRN PRN Reason: Pain, severe (8-10) Lactic Acid (Lac-Hydrin 12% Cream (140 G)) 1 ea TOP BID PRN PRN Reason: Dry skin Last Admin: 09/10/18 09:01 Dose: 1 ea Levothyroxine Sodium (Synthroid) 175 mcg PO DAILY@0630 [facility] Last Admin: 09/10/18 05:53 Dose: 175 mcg Lidocaine (Lidoderm) 1 ea TD DAILY [facility] Last Admin: 09/10/18 09:07 Dose: Not Given Tramadol HCl (Ultram) 50 mg PO Q4 PRN PRN Reason: Pain, moderate (4-7) Last Admin: 09/10/18 12:32 Dose: 50 mg Trazodone HCl (Desyrel) 50 mg PO HS [facility] Last Admin: 09/09/18 21:13 Dose: 50 mg - Labs Labs: 09/09/18 16:10 09/10/18 05:30 - Constitutional Appears: No Acute Distress - Head Exam Head Exam: ATRAUMATIC - Eye Exam Eye Exam: absent: Scleral icterus - ENT Exam ENT Exam: Mucous Membranes Moist - Neck Exam Neck Exam: absent: Meningismus - Respiratory Exam Respiratory Exam: absent: Rales, Rhonchi, Wheezes, Respiratory Distress - Cardiovascular Exam Cardiovascular Exam: REGULAR RHYTHM, +S1, +S2 - GI/Abdominal Exam GI & Abdominal Exam: Soft. absent: Tenderness - Rectal Exam Rectal Exam: Deferred - Neurological Exam Neurological Exam: Alert, Oriented x3 - Psychiatric Exam Psychiatric exam: Normal Affect - Skin Skin Exam: Dry, Intact Assessment and Plan - Assessment and Plan (Free Text) Assessment: 42 yo male with history of IVDA and Hep C admitted because of persistent low back pain associated with bilateral leg weakness. MRI of the lumbar spine showed possible discitis osteomyelitis of L1-L2. ID consult advised prolonged IV antibiotics with Vanco and Zosyn. 1. Lumbar discitis osteomyelitis pain tolerable and responsive to pain medication Neuro surgery consult with Dr. Lang suggested TLSO brace when out of bed repeat MRI in 4-6 months (sooner if clinical change) Dr. Schrader, ID consult, suggested continue empiric antibiotics for 6 weeks and repeat imaging Blood culture no growth over 5 days Quantiferon negative, PPD negative 2. Acute Kidney Injury improved, likely secondary to IV antibiotics and pain medication Creatinine 1.6 IV antibiotic adjusted to renal dose vanco trough 12.3 on 09/09 3. Hypothyroidism Levothyroxine dose increased to 175mcg PO QD TSH: 57.40 on 09/05/18 repeat TSH in a month 4. Thrombocytopenia improving may be secondary to Hep C 5. Hep C stable
[2018-09-11] MEDS: Piperacillin/Tazobact 3.375 GM in Sodium Chloride 0.9% 100 ML IVPB SCH ×3 (00:30→17:00)
[2018-09-11] MEDS: Levothyroxine 175 MCG TAB PO SCH (05:42)
[2018-09-11 06:31] LABS: BLOOD UREA NITROGEN 15 mg/dl (9-20); CALCIUM 8.5 mg/dL (8.4-10.2); GFR NON-AFRICAN AMERICAN 56
[2018-09-11] MEDS: Lidocaine 5% Patch TD SCH (09:18)
--- NOTE | 2018-09-11 12:22 | CP.PCM.PN ---
Subjective - Date & Time of Evaluation Date of Evaluation: 09/11/18 Time of Evaluation: 11:00 - Subjective Subjective: Patient seen and examined. Continue to complain of low back pain Objective - Vital Signs/Intake and Output Vital Signs (last 24 hours): Temp Pulse Resp BP Pulse Ox 98.2 F 72 20 153/90 H 95 09/11/18 07:56 09/11/18 07:56 09/11/18 07:56 09/11/18 07:56 09/11/18 07:56 - Medications Medications: Current Medications Acetaminophen (Tylenol 325mg Tab) 650 mg PO Q6 PRN PRN Reason: for breakthrough pain moderate Last Admin: 09/06/18 20:01 Dose: 650 mg Docusate Sodium (Colace) 100 mg PO BID [facility] Last Admin: 09/11/18 09:19 Dose: Not Given Vancomycin HCl 1,500 mg/ (Sodium Chloride) 500 mls @ 333.333 mls/hr IVPB DAILY@1700 [facility]; Protocol Last Admin: 09/10/18 16:26 Dose: 333.333 mls/hr Piperacillin Sod/Tazobactam (Sod 3.375 gm/ Sodium Chloride) 100 mls @ 100 mls/hr IVPB Q8 [facility]; Protocol Last Admin: 09/11/18 09:17 Dose: 100 mls/hr Ketorolac Tromethamine (Toradol) 15 mg IVP Q6 PRN PRN Reason: Pain, severe (8-10) Last Admin: 09/11/18 12:12 Dose: 15 mg Lactic Acid (Lac-Hydrin 12% Cream (140 G)) 1 ea TOP BID PRN PRN Reason: Dry skin Last Admin: 09/10/18 09:01 Dose: 1 ea Levothyroxine Sodium (Synthroid) 175 mcg PO DAILY@0630 [facility] Last Admin: 09/11/18 05:42 Dose: 175 mcg Lidocaine (Lidoderm) 1 ea TD DAILY [facility] Last Admin: 09/11/18 09:18 Dose: 1 ea Tramadol HCl (Ultram) 50 mg PO Q4 PRN PRN Reason: Pain, moderate (4-7) Last Admin: 09/11/18 05:51 Dose: 50 mg Trazodone HCl (Desyrel) 50 mg PO HS [facility] Last Admin: 09/10/18 21:05 Dose: 50 mg - Labs Labs: 09/09/18 16:10 09/11/18 05:45 - Constitutional Appears: No Acute Distress - Head Exam Head Exam: ATRAUMATIC - Eye Exam Eye Exam: absent: Scleral icterus - ENT Exam ENT Exam: Mucous Membranes Moist - Neck Exam Neck Exam: absent: Meningismus - Respiratory Exam Respiratory Exam: absent: Rales, Rhonchi, Wheezes, Respiratory Distress - Cardiovascular Exam Cardiovascular Exam: REGULAR RHYTHM, +S1, +S2 - GI/Abdominal Exam GI & Abdominal Exam: Soft. absent: Tenderness - Rectal Exam Rectal Exam: Deferred - Neurological Exam Neurological Exam: Alert, Oriented x3 - Psychiatric Exam Psychiatric exam: Normal Affect - Skin Skin Exam: Dry, Intact Assessment and Plan - Assessment and Plan (Free Text) Assessment: 42 yo male with history of IVDA and Hep C admitted because of persistent low back pain associated with bilateral leg weakness. MRI of the lumbar spine showed possible discitis osteomyelitis of L1-L2. ID consult advised prolonged IV antibiotics with Vanco and Zosyn. 1. Lumbar discitis osteomyelitis continue to have tolerable pain which is responsive to pain medication continue wearing TLSO brace when out of bed as recommended by neuro surgeon, Dr Lang repeat MRI in 4-6 months (sooner if clinical change) continue empiric IV antibiotics for 6 weeks and repeat imaging Blood culture no growth over 5 days Quantiferon negative, PPD negative 2. Acute Kidney Injury improved, likely secondary to IV antibiotics and pain medication Creatinine 1.4 IV antibiotic adjusted to renal dose vanco trough 12.3 on 09/09 3. Hypothyroidism Levothyroxine dose increased to 175mcg PO QD TSH: 57.40 on 09/05/18 repeat TSH in a month 4. Thrombocytopenia improving may be secondary to Hep C 5. Hep C stable
[2018-09-12] MEDS: Piperacillin/Tazobact 3.375 GM in Sodium Chloride 0.9% 100 ML IVPB SCH ×3 (00:30→16:29)
[2018-09-12] MEDS: Levothyroxine 175 MCG TAB PO SCH (06:29)
[2018-09-12] MEDS: Lidocaine 5% Patch TD SCH (09:04)
[2018-09-12 09:36] LABS: BLOOD UREA NITROGEN 16 mg/dl (9-20); CALCIUM 8.7 mg/dL (8.4-10.2); GFR NON-AFRICAN AMERICAN > 60
--- NOTE | 2018-09-12 15:44 | CP.PCM.PN ---
Subjective - Date & Time of Evaluation Date of Evaluation: 09/12/18 Time of Evaluation: 14:00 - Subjective Subjective: Patient seen and examined. No complaint. Objective - Vital Signs/Intake and Output Vital Signs (last 24 hours): Temp Pulse Resp BP Pulse Ox 97.7 F 74 21 143/88 98 09/12/18 08:16 09/12/18 09:07 09/12/18 08:16 09/12/18 09:07 09/12/18 08:16 - Medications Medications: Current Medications Acetaminophen (Tylenol 325mg Tab) 650 mg PO Q6 PRN PRN Reason: for breakthrough pain moderate Last Admin: 09/06/18 20:01 Dose: 650 mg Amlodipine Besylate (Norvasc) 2.5 mg PO DAILY [facility] Last Admin: 09/12/18 09:07 Dose: 2.5 mg Docusate Sodium (Colace) 100 mg PO BID [facility] Last Admin: 09/12/18 09:08 Dose: Not Given Vancomycin HCl 1,500 mg/ (Sodium Chloride) 500 mls @ 333.333 mls/hr IVPB DAILY@1700 [facility]; Protocol Last Admin: 09/11/18 16:59 Dose: 333.333 mls/hr Piperacillin Sod/Tazobactam (Sod 3.375 gm/ Sodium Chloride) 100 mls @ 100 mls/hr IVPB Q8 [facility]; Protocol Last Admin: 09/12/18 09:08 Dose: 100 mls/hr Ketorolac Tromethamine (Toradol) 15 mg IVP Q6 PRN PRN Reason: Pain, severe (8-10) Last Admin: 09/12/18 12:24 Dose: 15 mg Lactic Acid (Lac-Hydrin 12% Cream (140 G)) 1 ea TOP BID PRN PRN Reason: Dry skin Last Admin: 09/10/18 09:01 Dose: 1 ea Levothyroxine Sodium (Synthroid) 175 mcg PO DAILY@0630 [facility] Last Admin: 09/12/18 06:29 Dose: 175 mcg Lidocaine (Lidoderm) 1 ea TD DAILY [facility] Last Admin: 09/12/18 09:04 Dose: 1 ea Tramadol HCl (Ultram) 50 mg PO Q4 PRN PRN Reason: Pain, moderate (4-7) Last Admin: 09/12/18 08:45 Dose: 50 mg Trazodone HCl (Desyrel) 50 mg PO HS [facility] Last Admin: 09/11/18 21:05 Dose: 50 mg - Labs Labs: 09/09/18 16:10 09/12/18 09:00 - Constitutional Appears: No Acute Distress - Head Exam Head Exam: ATRAUMATIC - Eye Exam Eye Exam: absent: Scleral icterus - ENT Exam ENT Exam: Mucous Membranes Moist - Neck Exam Neck Exam: absent: Meningismus - Respiratory Exam Respiratory Exam: absent: Rales, Rhonchi, Wheezes, Respiratory Distress - Cardiovascular Exam Cardiovascular Exam: REGULAR RHYTHM, +S1, +S2 - GI/Abdominal Exam GI & Abdominal Exam: Soft. absent: Tenderness - Rectal Exam Rectal Exam: Deferred - Neurological Exam Neurological Exam: Alert, Oriented x3 - Psychiatric Exam Psychiatric exam: Normal Affect - Skin Skin Exam: Dry, Intact Assessment and Plan - Assessment and Plan (Free Text) Assessment: 42 yo male with history of IVDA and Hep C admitted because of persistent low back pain associated with bilateral leg weakness. MRI of the lumbar spine showed possible discitis osteomyelitis of L1-L2. ID consult advised IV antibiotics with Vanco and Zosyn for 6 weeks. 1. Lumbar osteomyelitis still with pain but tolerable and responsive to medication continue using TLSO brace when out of bed repeat MRI in 4-6 months continue empiric IV antibiotics for 6 weeks Blood culture no growth over 5 days Quantiferon negative, PPD negative 2. Acute Kidney Injury improved/resolved Creatinine 1.3 IV antibiotic adjusted to renal dose vanco trough 12.3 on 09/09 3. Hypothyroidism Levothyroxine dose increased to 175mcg PO QD TSH: 57.40 on 09/05/18 repeat TSH in a month 4. Thrombocytopenia improving may be secondary to Hep C 5. Hep C stable
[2018-09-13] MEDS: Piperacillin/Tazobact 3.375 GM in Sodium Chloride 0.9% 100 ML IVPB SCH ×3 (00:25→17:12)
[2018-09-13] MEDS: Levothyroxine 175 MCG TAB PO SCH (05:35)
[2018-09-13 06:31] LABS: BLOOD UREA NITROGEN 18 mg/dl (9-20); CALCIUM 8.5 mg/dL (8.4-10.2); GFR NON-AFRICAN AMERICAN > 60
--- NOTE | 2018-09-13 09:03 | CP.PCM.PN ---
<Diana Avalos - Last Filed: 09/13/18 15:50> Subjective - Date & Time of Evaluation Date of Evaluation: 09/13/18 Time of Evaluation: 09:15 - Subjective Subjective: Patient seen and examined at bedside. No acute events overnight. Reports back pain is controlled. Denies SOB, weakness or dizziness. Tolerating PO diet. Objective - Vital Signs/Intake and Output Vital Signs (last 24 hours): Temp Pulse Resp BP Pulse Ox 97.9 F 81 20 154/95 H 97 09/13/18 08:08 09/13/18 08:08 09/13/18 08:08 09/13/18 08:08 09/13/18 08:08 - Medications Medications: Current Medications Acetaminophen (Tylenol 325mg Tab) 650 mg PO Q6 PRN PRN Reason: for breakthrough pain moderate Last Admin: 09/13/18 01:41 Dose: 650 mg Amlodipine Besylate (Norvasc) 2.5 mg PO DAILY [facility] Last Admin: 09/12/18 09:07 Dose: 2.5 mg Docusate Sodium (Colace) 100 mg PO BID [facility] Last Admin: 09/12/18 16:29 Dose: Not Given Vancomycin HCl 1,500 mg/ (Sodium Chloride) 500 mls @ 333.333 mls/hr IVPB DAILY@1700 [facility]; Protocol Last Admin: 09/12/18 18:24 Dose: 333.333 mls/hr Piperacillin Sod/Tazobactam (Sod 3.375 gm/ Sodium Chloride) 100 mls @ 100 mls/hr IVPB Q8 [facility]; Protocol Last Admin: 09/13/18 00:25 Dose: 100 mls/hr Ketorolac Tromethamine (Toradol) 15 mg IVP Q6 PRN PRN Reason: Pain, severe (8-10) Last Admin: 09/13/18 06:40 Dose: 15 mg Lactic Acid (Lac-Hydrin 12% Cream (140 G)) 1 ea TOP BID PRN PRN Reason: Dry skin Last Admin: 09/10/18 09:01 Dose: 1 ea Levothyroxine Sodium (Synthroid) 200 mcg PO DAILY@0630 [facility] Lidocaine (Lidoderm) 1 ea TD DAILY [facility] Last Admin: 09/12/18 09:04 Dose: 1 ea Tramadol HCl (Ultram) 50 mg PO Q4 PRN PRN Reason: Pain, moderate (4-7) Last Admin: 09/12/18 21:00 Dose: 50 mg Trazodone HCl (Desyrel) 50 mg PO HS [facility] Last Admin: 09/12/18 21:00 Dose: 50 mg - Labs Labs: 09/09/18 16:10 09/13/18 05:25 - Constitutional Appears: No Acute Distress - Head Exam Head Exam: NORMAL INSPECTION - Eye Exam Eye Exam: EOMI - ENT Exam ENT Exam: Mucous Membranes Moist - Respiratory Exam Respiratory Exam: Clear to Ausculation Bilateral, NORMAL BREATHING PATTERN - Cardiovascular Exam Cardiovascular Exam: REGULAR RHYTHM, +S1, +S2 - GI/Abdominal Exam GI & Abdominal Exam: Soft, Normal Bowel Sounds. absent: Tenderness - Extremities Exam Extremities Exam: Full ROM. absent: Calf Tenderness, Pedal Edema - Neurological Exam Neurological Exam: Alert, Awake, Normal Gait - Psychiatric Exam Psychiatric exam: Normal Affect, Normal Mood - Skin Skin Exam: Dry, Normal Color, Warm Assessment and Plan - Assessment and Plan (Free Text) Assessment: 42 yr old M with significant PMH of IVDA & Hepatitis C presented to the ED with 2 months of lower back & b/l hip pain with associated worsening b/l lower extremity weakness. Lumbar spine MRI resulted highly suggestive of discitis osteomyelitis of L1-L2. Patient has RUE PICC for continued IV antibiotics. IV antibiotic renally dosed. 1. Lumbar discitis osteomyelitis -MRI lumbar spine: discitis osteomyelitis of L1-L2, bulging discs with foraminal stenosis (see full report) -Lumbar spine CT: Discitis osteomylitis at L1-2 and potentionally L2-L3. Epidural abscess not excluded and MRI w/o parvez advised for better resolution. Spondylolisthesis L1-L2. -Lumbar spine x-ray: Findings most likely represent discitis osteomyelitis at L2-L3 level with partial collapse of L2 segment & retropulsion for posterior superior corner. There is also slight posterior subluzation of L1 over L2. -Neuro surgery consulted: Dr. Lang: wear TLSO brace when out of bed, ambulate as tolerated, repeat MRI in 4-6 months (sooner if clinical change) -IR consulted- no IR procedure recommended at this time -ID on board: Dr. Schrader: continue empiric antibiotics for 6 weeks and repeat imaging -IV antibiotic renally dosed; Vancomycin 1.5 gm QD (day 17) & zosyn 3.375 Q8 (day 17), Vanc trough 12.3 on 09/09/18 -continue with pain control : PRN tylenol, tramadol 50 Q4 PRN, and lidoderm patch -Blood cx no growth x 5 days, ESR 89 on 09/05/18 -Quantiferon negative, PPD negative -f/u BMP 2. Acute Kidney Injury -acute, improved, likely secondary to IV antibiotics and pain medication -Creatinine 1.3 -IV antibiotic dose adjusted due to renal dose -encouraged patient to only request pain med PRN -vanco trough 12.3 on 09/09/18 -f/u BMP, vanc trough 3. Hypothyroidism -chronic, uncontrolled -patient reports prior compliance with levothyroxine 100 mcg PO QD -TSH 35.70 mIU/mL on 09/13/18 -levothyroxine dose increased to 200mcg PO QD -f/u repeat TSH in 1 week 4. Thrombocytopenia -chronic, improving -may be secondary to Hep C -ursodiol medication discontinued (may contribute to thrombocytopenia) -will monitor 5. IVDA -ID consulted- Dr. Schrader: will follow recommendations -HIV negative, U tox + Opiates and benzodiazepines -Echo EF 60-65% no evidence of endocarditis -repeat Utox positive for opiate on 09/03/18 6. Hep C -Hepatitic C antibody positive 03/2018 and 08/31/18 -Hep B Ag and Hep B core Ab , Hep A Ab negative 08/31/18 -Hep C viral load undetectable <Jarrod Corrales - Last Filed: 09/13/18 18:44> Objective - Vital Signs/Intake and Output Vital Signs (last 24 hours): Temp Pulse Resp BP Pulse Ox 98.3 F 74 19 131/83 95 09/13/18 16:04 09/13/18 16:04 09/13/18 16:04 09/13/18 16:04 09/13/18 16:04 - Medications Medications: Current Medications Acetaminophen (Tylenol 325mg Tab) 650 mg PO Q6 PRN PRN Reason: for breakthrough pain moderate Last Admin: 09/13/18 01:41 Dose: 650 mg Amlodipine Besylate (Norvasc) 2.5 mg PO DAILY [facility] Last Admin: 09/13/18 09:54 Dose: 2.5 mg Docusate Sodium (Colace) 100 mg PO BID [facility] Last Admin: 09/13/18 17:19 Dose: Not Given Vancomycin HCl 1,500 mg/ (Sodium Chloride) 500 mls @ 333.333 mls/hr IVPB [facility]@1700 [facility]; Protocol Last Admin: 09/13/18 17:12 Dose: 333.333 mls/hr Piperacillin Sod/Tazobactam (Sod 3.375 gm/ Sodium Chloride) 100 mls @ 100 mls/hr IVPB Q8 [facility]; Protocol Last Admin: 09/13/18 17:12 Dose: 100 mls/hr Ketorolac Tromethamine (Toradol) 15 mg IVP Q6 PRN PRN Reason: Pain, severe (8-10) Last Admin: 09/13/18 13:15 Dose: 15 mg Lactic Acid (Lac-Hydrin 12% Cream (140 G)) 1 ea TOP BID PRN PRN Reason: Dry skin Last Admin: 09/10/18 09:01 Dose: 1 ea Levothyroxine Sodium (Synthroid) 200 mcg PO DAILY@0630 [facility] Lidocaine (Lidoderm) 1 ea TD DAILY [facility] Last Admin: 09/13/18 09:54 Dose: 1 ea Tramadol HCl (Ultram) 50 mg PO Q4 PRN PRN Reason: Pain, moderate (4-7) Last Admin: 09/13/18 17:17 Dose: 50 mg Trazodone HCl (Desyrel) 50 mg PO HS [facility] Last Admin: 09/12/18 21:00 Dose: 50 mg - Labs Labs: 09/09/18 16:10 09/13/18 05:25 Attending/Attestation - Attestation I have personally seen and examined this patient.: Yes I have fully participated in the care of the patient.: Yes I have reviewed all pertinent clinical information, including history, physical exam and plan: Yes Notes (Text): 09/13/18 18:43 Patient seen and examined with resident. Case discussed and agreed with assessment.
[2018-09-13] MEDS: Lidocaine 5% Patch TD SCH (09:54)
--- NOTE | 2018-09-13 15:03 | CP.PCM.PN ---
Subjective - Date & Time of Evaluation Date of Evaluation: 09/13/18 Time of Evaluation: 14:00 - Subjective Subjective: Patient seen and examined. Denied any complaint. Objective - Vital Signs/Intake and Output Vital Signs (last 24 hours): Temp Pulse Resp BP Pulse Ox 97.9 F 81 20 154/95 H 97 09/13/18 08:08 09/13/18 09:54 09/13/18 08:08 09/13/18 09:54 09/13/18 08:08 - Medications Medications: Current Medications Acetaminophen (Tylenol 325mg Tab) 650 mg PO Q6 PRN PRN Reason: for breakthrough pain moderate Last Admin: 09/13/18 01:41 Dose: 650 mg Amlodipine Besylate (Norvasc) 2.5 mg PO DAILY [facility] Last Admin: 09/13/18 09:54 Dose: 2.5 mg Docusate Sodium (Colace) 100 mg PO BID [facility] Last Admin: 09/13/18 09:54 Dose: 100 mg Vancomycin HCl 1,500 mg/ (Sodium Chloride) 500 mls @ 333.333 mls/hr IVPB DAILY@1700 [facility]; Protocol Last Admin: 09/12/18 18:24 Dose: 333.333 mls/hr Piperacillin Sod/Tazobactam (Sod 3.375 gm/ Sodium Chloride) 100 mls @ 100 mls/hr IVPB Q8 [facility]; Protocol Last Admin: 09/13/18 09:52 Dose: 100 mls/hr Ketorolac Tromethamine (Toradol) 15 mg IVP Q6 PRN PRN Reason: Pain, severe (8-10) Last Admin: 09/13/18 13:15 Dose: 15 mg Lactic Acid (Lac-Hydrin 12% Cream (140 G)) 1 ea TOP BID PRN PRN Reason: Dry skin Last Admin: 09/10/18 09:01 Dose: 1 ea Levothyroxine Sodium (Synthroid) 200 mcg PO DAILY@0630 [facility] Lidocaine (Lidoderm) 1 ea TD DAILY [facility] Last Admin: 09/13/18 09:54 Dose: 1 ea Tramadol HCl (Ultram) 50 mg PO Q4 PRN PRN Reason: Pain, moderate (4-7) Last Admin: 09/12/18 21:00 Dose: 50 mg Trazodone HCl (Desyrel) 50 mg PO HS [facility] Last Admin: 09/12/18 21:00 Dose: 50 mg - Labs Labs: 09/09/18 16:10 09/13/18 05:25 - Constitutional Appears: No Acute Distress - Head Exam Head Exam: ATRAUMATIC - Eye Exam Eye Exam: absent: Scleral icterus - ENT Exam ENT Exam: Mucous Membranes Moist - Neck Exam Neck Exam: absent: Meningismus - Respiratory Exam Respiratory Exam: absent: Rales, Rhonchi, Wheezes, Respiratory Distress - Cardiovascular Exam Cardiovascular Exam: REGULAR RHYTHM, +S1, +S2 - GI/Abdominal Exam GI & Abdominal Exam: Soft. absent: Tenderness - Rectal Exam Rectal Exam: Deferred
[2018-09-14] MEDS: Piperacillin/Tazobact 3.375 GM in Sodium Chloride 0.9% 100 ML IVPB SCH ×3 (00:19→16:21)
[2018-09-14] MEDS: Levothyroxine 200 MCG TAB PO SCH (05:42)
[2018-09-14 06:47] LABS: BLOOD UREA NITROGEN 18 mg/dl (9-20); CALCIUM 8.6 mg/dL (8.4-10.2); GFR NON-AFRICAN AMERICAN 56
[2018-09-14] MEDS: Lidocaine 5% Patch TD SCH (08:46)
[2018-09-14] MEDS ORDERED: Sodium Chloride 0.9% 1,000 ML IV SCH (11:15)
--- NOTE | 2018-09-14 11:21 | CP.PCM.PN ---
<Diana Avalos - Last Filed: 09/14/18 16:07> Subjective - Date & Time of Evaluation Date of Evaluation: 09/14/18 Time of Evaluation: 09:20 - Subjective Subjective: Patient seen and examined at bedside. In no acute distress. Reports back pain is controlled with medication PRN. Denies chest pain, SOB, weakness or dizziness. Objective - Vital Signs/Intake and Output Vital Signs (last 24 hours): Temp Pulse Resp BP Pulse Ox 97.9 F 68 20 145/89 97 09/14/18 09:00 09/14/18 09:00 09/14/18 09:00 09/14/18 09:00 09/14/18 09:00 - Medications Medications: Current Medications Acetaminophen (Tylenol 325mg Tab) 650 mg PO Q6 PRN PRN Reason: for breakthrough pain moderate Last Admin: 09/14/18 09:01 Dose: 650 mg Amlodipine Besylate (Norvasc) 2.5 mg PO DAILY [facility] Last Admin: 09/14/18 08:45 Dose: 2.5 mg Docusate Sodium (Colace) 100 mg PO BID [facility] Last Admin: 09/14/18 08:47 Dose: Not Given Vancomycin HCl 1,500 mg/ (Sodium Chloride) 500 mls @ 333.333 mls/hr IVPB DAILY@1700 [facility]; Protocol Last Admin: 09/13/18 17:12 Dose: 333.333 mls/hr Piperacillin Sod/Tazobactam (Sod 3.375 gm/ Sodium Chloride) 100 mls @ 100 mls/hr IVPB Q8 [facility]; Protocol Last Admin: 09/14/18 08:46 Dose: 100 mls/hr Sodium Chloride (Sodium Chloride 0.9%) 1,000 mls @ 999 mls/hr IV .Q1H1M [facility] Stop: 09/15/18 11:07 Ketorolac Tromethamine (Toradol) 15 mg IVP Q6 PRN PRN Reason: Pain, severe (8-10) Last Admin: 09/14/18 07:16 Dose: 15 mg Lactic Acid (Lac-Hydrin 12% Cream (140 G)) 1 ea TOP BID PRN PRN Reason: Dry skin Last Admin: 09/10/18 09:01 Dose: 1 ea Levothyroxine Sodium (Synthroid) 200 mcg PO DAILY@0630 [facility] Last Admin: 09/14/18 05:42 Dose: 200 mcg Lidocaine (Lidoderm) 1 ea TD DAILY [facility] Last Admin: 09/14/18 08:46 Dose: 1 ea Tramadol HCl (Ultram) 50 mg PO Q4 PRN PRN Reason: Pain, moderate (4-7) Last Admin: 09/13/18 21:06 Dose: 50 mg Trazodone HCl (Desyrel) 50 mg PO HS [facility] Last Admin: 09/13/18 21:01 Dose: 50 mg - Labs Labs: 09/09/18 16:10 09/14/18 05:15 - Constitutional Appears: No Acute Distress - Head Exam Head Exam: NORMAL INSPECTION - Eye Exam Eye Exam: EOMI - ENT Exam ENT Exam: Mucous Membranes Moist - Respiratory Exam Respiratory Exam: Clear to Ausculation Bilateral, NORMAL BREATHING PATTERN - Cardiovascular Exam Cardiovascular Exam: REGULAR RHYTHM, +S1, +S2 - GI/Abdominal Exam GI & Abdominal Exam: Soft, Normal Bowel Sounds. absent: Tenderness - Extremities Exam Extremities Exam: Full ROM. absent: Calf Tenderness, Pedal Edema - Neurological Exam Neurological Exam: Alert, Awake, CN II-XII Intact - Psychiatric Exam Psychiatric exam: Normal Affect, Normal Mood - Skin Skin Exam: Dry, Normal Color, Warm Assessment and Plan - Assessment and Plan (Free Text) Assessment: 42 yr old M with significant PMH of IVDA & Hepatitis C presented to the ED with 2 months of lower back & b/l hip pain with associated worsening b/l lower extremity weakness. Lumbar spine MRI resulted highly suggestive of discitis osteomyelitis of L1-L2. Patient has RUE PICC for continued IV antibiotics. IV antibiotic renally dosed. 1. Lumbar discitis osteomyelitis -MRI lumbar spine: discitis osteomyelitis of L1-L2, bulging discs with foraminal stenosis (see full report) -Lumbar spine CT: Discitis osteomylitis at L1-2 and potentionally L2-L3. Epidural abscess not excluded and MRI w/o parvez advised for better resolution. Spondylolisthesis L1-L2. -Lumbar spine x-ray: Findings most likely represent discitis osteomyelitis at L2-L3 level with partial collapse of L2 segment & retropulsion for posterior superior corner. There is also slight posterior subluzation of L1 over L2. -Neuro surgery consulted: Dr. Lang: wear TLSO brace when out of bed, ambulate as tolerated, repeat MRI in 4-6 months (sooner if clinical change) -IR consulted- no IR procedure recommended at this time -ID on board: Dr. Schrader: continue empiric antibiotics for 6 weeks and repeat imaging -IV antibiotic renally dosed; Vancomycin 1.5 gm QD (day 18) & zosyn 3.375 Q8 (day 18), Vanc trough 12.3 on 09/09/18 -continue with pain control : PRN tylenol, tramadol 50 Q4 PRN, and lidoderm patc h -Blood cx no growth x 5 days, ESR 89 on 09/05/18 -Quantiferon negative, PPD negative -f/u BMP 2. Acute Kidney Injury -acute, improved, likely secondary to IV antibiotics and pain medication -Creatinine 1.4 (was 0.6 on admission) -IV antibiotic dose adjusted due to renal dose, IVF 1L NS today -encouraged patient to only request pain med PRN -vanco trough 12.3 on 09/09/18 -f/u BMP, vanc trough 3. Hypothyroidism -chronic, uncontrolled -patient reports prior compliance with levothyroxine 100 mcg PO QD -TSH 35.70 mIU/mL on 09/13/18 -levothyroxine dose increased to 200mcg PO QD -f/u repeat TSH in 1 week 4. Thrombocytopenia -chronic, improving -may be secondary to Hep C -ursodiol medication discontinued (may contribute to thrombocytopenia) -will monitor 5. IVDA -ID consulted- Dr. Schrader: will follow recommendations -HIV negative, U tox + Opiates and benzodiazepines -Echo EF 60-65% no evidence of endocarditis -repeat Utox positive for opiate on 09/03/18 6. Hep C -Hepatitic C antibody positive 03/2018 and 08/31/18 -Hep B Ag and Hep B core Ab , Hep A Ab negative 08/31/18 -Hep C viral load undetectable <Jarrod Corrales - Last Filed: 09/14/18 17:11> Objective - Vital Signs/Intake and Output Vital Signs (last 24 hours): Temp Pulse Resp BP Pulse Ox 98 F 64 18 162/98 H 98 09/14/18 17:00 09/14/18 17:00 09/14/18 17:00 09/14/18 17:00 09/14/18 17:00 - Medications Medications: Current Medications Acetaminophen (Tylenol 325mg Tab) 650 mg PO Q6 PRN PRN Reason: for breakthrough pain moderate Last Admin: 09/14/18 09:01 Dose: 650 mg Amlodipine Besylate (Norvasc) 2.5 mg PO DAILY [facility] Last Admin: 09/14/18 08:45 Dose: 2.5 mg Docusate Sodium (Colace) 100 mg PO BID [facility] Last Admin: 09/14/18 16:24 Dose: Not Given Vancomycin HCl 1,500 mg/ (Sodium Chloride) 500 mls @ 333.333 mls/hr IVPB DAILY@1700 [facility]; Protocol Last Admin: 09/13/18 17:12 Dose: 333.333 mls/hr Piperacillin Sod/Tazobactam (Sod 3.375 gm/ Sodium Chloride) 100 mls @ 100 mls/hr IVPB Q8 [facility]; Protocol Last Admin: 09/14/18 16:21 Dose: 100 mls/hr Sodium Chloride (Sodium Chloride 0.9%) 1,000 mls @ 999 mls/hr IV .Q1H1M [facility] Stop: 09/15/18 11:07 Last Admin: 09/14/18 12:14 Dose: 999 mls/hr Ketorolac Tromethamine (Toradol) 15 mg IVP Q6 PRN PRN Reason: Pain, severe (8-10) Last Admin: 09/14/18 14:34 Dose: 15 mg Lactic Acid (Lac-Hydrin 12% Cream (140 G)) 1 ea TOP BID PRN PRN Reason: Dry skin Last Admin: 09/10/18 09:01 Dose: 1 ea Levothyroxine Sodium (Synthroid) 200 mcg PO DAILY@0630 [facility] Last Admin: 09/14/18 05:42 Dose: 200 mcg Lidocaine (Lidoderm) 1 ea TD DAILY [facility] Last Admin: 09/14/18 08:46 Dose: 1 ea Tramadol HCl (Ultram) 50 mg PO Q4 PRN PRN Reason: Pain, moderate (4-7) Last Admin: 09/13/18 21:06 Dose: 50 mg Trazodone HCl (Desyrel) 50 mg PO HS [facility] Last Admin: 09/13/18 21:01 Dose: 50 mg - Labs Labs: 09/09/18 16:10 09/14/18 05:15 Attending/Attestation - Attestation I have personally seen and examined this patient.: Yes I have fully participated in the care of the patient.: Yes I have reviewed all pertinent clinical information, including history, physical exam and plan: Yes Notes (Text): 09/14/18 17:10 Patient seen and examined with resident. Case discussed and agreed with assessment.
[2018-09-15] MEDS: Piperacillin/Tazobact 3.375 GM in Sodium Chloride 0.9% 100 ML IVPB SCH ×3 (00:23→16:15)
[2018-09-15] MEDS: Levothyroxine 200 MCG TAB PO SCH (05:43)
[2018-09-15 06:29] LABS: HEMOGLOBIN 11.7 g/dL (12.0-18.0); MEAN CELL VOLUME 89.5 fl (80.0-94.0); MEAN CORPUSCULAR HEMOGLOBIN 30.5 pg (27.0-31.0); RBC 3.85 Mil/uL (4.40-5.90); RED CELL DISTRIBUTION WIDTH 15.1 % (11.5-14.5)
[2018-09-15 06:43] LABS: BLOOD UREA NITROGEN 16 mg/dl (9-20); CALCIUM 8.5 mg/dL (8.4-10.2); GFR NON-AFRICAN AMERICAN > 60
[2018-09-15] MEDS: Lidocaine 5% Patch TD SCH (08:23)
--- NOTE | 2018-09-15 09:59 | CP.PCM.PN ---
<Cameron Gurrola - Last Filed: 09/15/18 11:31> Subjective - Date & Time of Evaluation Date of Evaluation: 09/15/18 Time of Evaluation: 07:00 - Subjective Subjective: Pt seen and examined at bedside. No acute event overnight. Patient report pain is improve with medication PRN. Denies chest pain, sob, weakness, or dizziness Objective - Vital Signs/Intake and Output Vital Signs (last 24 hours): Temp Pulse Resp BP Pulse Ox 97.9 F 70 19 138/89 96 09/15/18 07:49 09/15/18 08:24 09/15/18 07:49 09/15/18 08:24 09/15/18 07:49 - Medications Medications: Current Medications Acetaminophen (Tylenol 325mg Tab) 650 mg PO Q6 PRN PRN Reason: for breakthrough pain moderate Last Admin: 09/15/18 01:39 Dose: 650 mg Amlodipine Besylate (Norvasc) 2.5 mg PO DAILY [facility] Last Admin: 09/15/18 08:24 Dose: 2.5 mg Docusate Sodium (Colace) 100 mg PO BID [facility] Last Admin: 09/15/18 08:23 Dose: Not Given Vancomycin HCl 1,500 mg/ (Sodium Chloride) 500 mls @ 333.333 mls/hr IVPB DAILY@1700 [facility]; Protocol Last Admin: 09/14/18 17:40 Dose: 333.333 mls/hr Piperacillin Sod/Tazobactam (Sod 3.375 gm/ Sodium Chloride) 100 mls @ 100 mls/hr IVPB Q8 [facility]; Protocol Last Admin: 09/15/18 08:24 Dose: 100 mls/hr Sodium Chloride (Sodium Chloride 0.9%) 1,000 mls @ 999 mls/hr IV .Q1H1M [facility] Stop: 09/15/18 11:07 Last Admin: 09/14/18 12:14 Dose: 999 mls/hr Ketorolac Tromethamine (Toradol) 15 mg IVP Q6 PRN PRN Reason: Pain, severe (8-10) Last Admin: 09/15/18 08:24 Dose: 15 mg Lactic Acid (Lac-Hydrin 12% Cream (140 G)) 1 ea TOP BID PRN PRN Reason: Dry skin Last Admin: 09/10/18 09:01 Dose: 1 ea Levothyroxine Sodium (Synthroid) 200 mcg PO DAILY@0630 [facility] Last Admin: 09/15/18 05:43 Dose: 200 mcg Lidocaine (Lidoderm) 1 ea TD DAILY [facility] Last Admin: 09/15/18 08:23 Dose: 1 ea Tramadol HCl (Ultram) 50 mg PO Q4 PRN PRN Reason: Pain, moderate (4-7) Last Admin: 09/15/18 05:58 Dose: 50 mg Trazodone HCl (Desyrel) 50 mg PO HS [facility] Last Admin: 09/14/18 21:07 Dose: 50 mg - Labs Labs: 09/15/18 05:55 09/15/18 05:55 - Constitutional Appears: Well, Non-toxic, No Acute Distress - Head Exam Head Exam: ATRAUMATIC, NORMAL INSPECTION, NORMOCEPHALIC - Eye Exam Eye Exam: EOMI, Normal appearance, PERRL Pupil Exam: NORMAL ACCOMODATION, PERRL - ENT Exam ENT Exam: Mucous Membranes Moist, Normal Exam - Neck Exam Neck Exam: Full ROM, Normal Inspection - Respiratory Exam Respiratory Exam: Clear to Ausculation Bilateral, NORMAL BREATHING PATTERN - Cardiovascular Exam Cardiovascular Exam: REGULAR RHYTHM, +S1, +S2 - GI/Abdominal Exam GI & Abdominal Exam: Soft, Normal Bowel Sounds - Extremities Exam Extremities Exam: Full ROM. absent: Calf Tenderness, Pedal Edema, Tenderness - Back Exam Back Exam: NORMAL INSPECTION - Neurological Exam Neurological Exam: Alert, Awake, Oriented x3 - Psychiatric Exam Psychiatric exam: Normal Affect, Normal Mood - Skin Skin Exam: Dry, Intact, Normal Color, Warm Assessment and Plan - Assessment and Plan (Free Text) Assessment: 42 yo Male with PMH of IVDA & Hepatitis C presented to the ED with 2 months of lower back & b/l hip pain with associated worsening b/l lower extremity weakness. Lumbar spine MRI resulted highly suggestive of discitis osteomyelitis of L1-L2. Patient has RUE PICC for continued IV antibiotics. IV antibiotic renally dosed. 1. Lumbar discitis osteomyelitis -MRI lumbar spine: discitis osteomyelitis of L1-L2, bulging discs with foraminal stenosis (see full report) -Lumbar spine CT: Discitis osteomylitis at L1-2 and potentionally L2-L3. Epidural abscess not excluded and MRI w/o parvez advised for better resolution. Spondylolisthesis L1-L2. -Lumbar spine x-ray: Findings most likely represent discitis osteomyelitis at L2-L3 level with partial collapse of L2 segment & retropulsion for posterior superior corner. There is also slight posterior subluzation of L1 over L2. -Neuro surgery consulted: Dr. Lang: wear TLSO brace when out of bed, ambulate as tolerated, repeat MRI in 4-6 months (sooner if clinical change) -IR consulted- no IR procedure recommended at this time -ID on board: Dr. Schrader: continue empiric antibiotics for 6 weeks and repeat imaging -IV antibiotic renally dosed; Vancomycin 1.5 gm QD (day 19) & zosyn 3.375 Q8 (day 19), Vanc trough 12.3 on 09/09/18 -continue with pain control : PRN tylenol, tramadol 50 Q4 PRN, and lidoderm patch -Blood cx Negative -Quantiferon negative, PPD negative 2. Acute Kidney Injury -Improved -likely secondary to IV antibiotics and pain medication -Creatinine 1.3 (was 0.6 on admission) -IV antibiotic dose adjusted due to renal dose, IVF 1L NS today -encouraged patient to only request pain med PRN -vanco trough 12.3 on 09/09/18 - F/u vanc trough 3. Hypothyroidism -chronic, uncontrolled -patient reports prior compliance with levothyroxine 100 mcg PO QD -TSH 35.70 mIU/mL on 09/13/18 -levothyroxine dose increased to 200mcg PO QD -f/u repeat TSH in 1 week 4. Thrombocytopenia -chronic, improving -may be secondary to Hep C -ursodiol medication discontinued (may contribute to thrombocytopenia) -will monitor 5. IVDA -ID consulted- Dr. Schrader: will follow recommendations -HIV negative, U tox + Opiates and benzodiazepines -Echo EF 60-65% no evidence of endocarditis 6. Hep C -Hepatitic C antibody positive 03/2018 and 08/31/18 -Hep B Ag and Hep B core Ab , Hep A Ab negative 08/31/18 -Hep C viral load undetectable <Kely Coughlin - Last Filed: 09/15/18 15:37> Objective - Vital Signs/Intake and Output Vital Signs (last 24 hours): Temp Pulse Resp BP Pulse Ox 98.3 F 70 19 146/82 98 09/15/18 15:28 09/15/18 15:28 09/15/18 15:28 09/15/18 15:28 09/15/18 15:28 - Medications Medications: Current Medications Acetaminophen (Tylenol 325mg Tab) 650 mg PO Q6 PRN PRN Reason: for breakthrough pain moderate Last Admin: 09/15/18 01:39 Dose: 650 mg Amlodipine Besylate (Norvasc) 2.5 mg PO DAILY [facility] Last Admin: 09/15/18 08:24 Dose: 2.5 mg Docusate Sodium (Colace) 100 mg PO BID [facility] Last Admin: 09/15/18 08:23 Dose: Not Given Enoxaparin Sodium (Lovenox) 40 mg SC DAILY [facility]; Protocol Vancomycin HCl 1,500 mg/ (Sodium Chloride) 500 mls @ 333.333 mls/hr IVPB DA CHAN@1700 [facility]; Protocol Last Admin: 09/14/18 17:40 Dose: 333.333 mls/hr Piperacillin Sod/Tazobactam (Sod 3.375 gm/ Sodium Chloride) 100 mls @ 100 mls/hr IVPB Q8 [facility]; Protocol Last Admin: 09/15/18 08:24 Dose: 100 mls/hr Ketorolac Tromethamine (Toradol) 15 mg IVP Q6 PRN PRN Reason: Pain, severe (8-10) Last Admin: 09/15/18 14:32 Dose: 15 mg Lactic Acid (Lac-Hydrin 12% Cream (140 G)) 1 ea TOP BID PRN PRN Reason: Dry skin Last Admin: 09/10/18 09:01 Dose: 1 ea Levothyroxine Sodium (Synthroid) 200 mcg PO DAILY@0630 [facility] Last Admin: 09/15/18 05:43 Dose: 200 mcg Lidocaine (Lidoderm) 1 ea TD DAILY [facility] Last Admin: 09/15/18 08:23 Dose: 1 ea Tramadol HCl (Ultram) 50 mg PO Q4 PRN PRN Reason: Pain, moderate (4-7) Last Admin: 09/15/18 05:58 Dose: 50 mg Trazodone HCl (Desyrel) 50 mg PO HS [facility] Last Admin: 09/14/18 21:07 Dose: 50 mg - Labs Labs: 09/15/18 05:55 09/15/18 05:55 Attending/Attestation - Attestation I have personally seen and examined this patient.: Yes I have fully participated in the care of the patient.: Yes I have reviewed all pertinent clinical information, including history, physical exam and plan: Yes Notes (Text): Discitis/Osteomyelitis at L1-L2, L2-L3 No Epidural Abscess on MRI - - Pt has low back pain, no neuro deficit, no saddle anesthesia, voiding freely, + BM - MRI of the L spine with Gadolinium showed Osteo/Discitis , no mention of abscess - Neurosurgery consulted- Dr Lang - rec IR consult , per IR - no intervention - Dr Alvarez ( triage specialist ) came to eval pt today - no surgical intervention, rec TLSO Brace -cont IV Zosyn and Vanco , check trough - Pain Mgt -Echo : no vegetation - Blood c/s : negative so far -ID consulted rec 6-8 wks of IV abx Active of IVDU - unable to d/c pt home with PICC due to hx of IVDU Hep C + - Hep C Viral load: undetectable Hypothyroidism - still elevated TSH -Levothyroxine dose increased to 175mcg Acute Kidney Injury prob sec to meds ( Vanco , NSAIDs), resolved - IVF hydration Thrombocytopenia like due to liver dis - will monitor DVT Proph start Lovenox - monitor platelet 09/15/18 15:36
[2018-09-15 16:22] VITALS: BMI 26.8
[2018-09-15] MEDS: Enoxaparin 40 mg Syringe SC SCH (20:51)
[2018-09-16] MEDS: Piperacillin/Tazobact 3.375 GM in Sodium Chloride 0.9% 100 ML IVPB SCH ×3 (01:14→16:35)
[2018-09-16] MEDS: Levothyroxine 200 MCG TAB PO SCH (06:45)
[2018-09-16] MEDS: Lidocaine 5% Patch TD SCH (08:46)
[2018-09-16] MEDS: Enoxaparin 40 mg Syringe SC SCH (08:46)
--- NOTE | 2018-09-16 11:18 | CP.PCM.PN ---
Subjective - Date & Time of Evaluation Date of Evaluation: 09/16/18 Time of Evaluation: 11:15 - Subjective Subjective: No fever still with some low back pain complains of insomnia no CP no SOB no abd pain Objective - Vital Signs/Intake and Output Vital Signs (last 24 hours): Temp Pulse Resp BP Pulse Ox 98.8 F 87 20 143/87 96 09/16/18 07:39 09/16/18 08:46 09/16/18 07:39 09/16/18 08:46 09/16/18 07:39 - Medications Medications: Current Medications Acetaminophen (Tylenol 325mg Tab) 650 mg PO Q6 PRN PRN Reason: for breakthrough pain moderate Last Admin: 09/15/18 21:48 Dose: 650 mg Amlodipine Besylate (Norvasc) 2.5 mg PO DAILY [facility] Last Admin: 09/16/18 08:46 Dose: 2.5 mg Docusate Sodium (Colace) 100 mg PO BID [facility] Last Admin: 09/16/18 08:46 Dose: Not Given Enoxaparin Sodium (Lovenox) 40 mg SC DAILY [facility]; Protocol Last Admin: 09/16/18 08:46 Dose: 40 mg Vancomycin HCl 1,500 mg/ (Sodium Chloride) 500 mls @ 333.333 mls/hr IVPB DAILY@1700 [facility]; Protocol Last Admin: 09/15/18 18:55 Dose: 333.333 mls/hr Piperacillin Sod/Tazobactam (Sod 3.375 gm/ Sodium Chloride) 100 mls @ 100 mls/hr IVPB Q8 [facility]; Protocol Last Admin: 09/16/18 08:45 Dose: 100 mls/hr Ketorolac Tromethamine (Toradol) 15 mg IVP Q6 PRN PRN Reason: Pain, severe (8-10) Last Admin: 09/16/18 08:45 Dose: 15 mg Lactic Acid (Lac-Hydrin 12% Cream (140 G)) 1 ea TOP BID PRN PRN Reason: Dry skin Last Admin: 09/10/18 09:01 Dose: 1 ea Levothyroxine Sodium (Synthroid) 200 mcg PO DAILY@0630 [facility] Last Admin: 09/16/18 06:45 Dose: 200 mcg Lidocaine (Lidoderm) 1 ea TD DAILY [facility] Last Admin: 09/16/18 08:46 Dose: 1 ea Tramadol HCl (Ultram) 50 mg PO Q4 PRN PRN Reason: Pain, moderate (4-7) Last Admin: 09/16/18 01:19 Dose: 50 mg Trazodone HCl (Desyrel) 50 mg PO HS [facility] Last Admin: 09/15/18 21:47 Dose: 50 mg - Labs Labs: 09/15/18 05:55 09/15/18 05:55 Assessment and Plan - Assessment and Plan (Free Text) Plan: - Constitutional Appears: Non-toxic, No Acute Distress - Head Exam Head Exam: ATRAUMATIC, NORMAL INSPECTION, NORMOCEPHALIC - Eye Exam Eye Exam: EOMI, Normal appearance, PERRL Pupil Exam: NORMAL ACCOMODATION - ENT Exam ENT Exam: Mucous Membranes Moist, Normal External Ear Exam - Neck Exam Neck Exam: Full ROM. absent: Meningismus - Respiratory Exam Respiratory Exam: NORMAL BREATHING PATTERN. absent: Respiratory Distress - Cardiovascular Exam Cardiovascular Exam: REGULAR RHYTHM, +S1, +S2 - GI/Abdominal Exam GI & Abdominal Exam: Soft, Normal Bowel Sounds. absent: Tenderness - Extremities Exam Extremities Exam: Full ROM, Normal Capillary Refill. absent: Calf Tenderness, Joint Swelling - Back Exam Back Exam: Full ROM, vertebral tenderness (upper lumbar). absent: CVA tenderness (L), CVA tenderness (R) - Neurological Exam Neurological Exam: Alert, Awake, CN II-XII Intact, Normal Gait, Oriented x3 Neuro motor strength exam: Left Upper Extremity: 5, Right Upper Extremity: 5, Left Lower Extremity: 5, Right Lower Extremity: 5 - Psychiatric Exam Psychiatric exam: Normal Affect, Normal Mood - Skin Skin Exam: Dry, Normal Color, Warm Additional comments: needle track duncan skin popping areas noted Assessment and Plan - Assessment and Plan (Free Text) Plan: Discitis/Osteomyelitis at L1-L2, L2-L3 No Epidural Abscess on MRI - - Pt has low back pain, no neuro deficit, no saddle anesthesia, voiding freely, + BM - MRI of the L spine with Gadolinium showed Osteo/Discitis , no mention of abscess - Neurosurgery consulted- Dr Lang - rec IR consult , per IR - no intervention - Dr Alvarez ( internet marketing specialist ) came to eval pt today - no surgical interventi on, rec TLSO Brace -cont IV Zosyn and Vanco - Crea improved , Vanco trough = 9 , will resume Vanco 1.5 gram q 12 and monitor closely - Pain Mgt - Ultram -Echo : no vegetation - Blood c/s : negative so far -ID consulted rec 6-8 wks of IV abx - Active of IVDU - unable to d/c pt home with PICC due to hx of IVDU Hep C + -undetectable viral load Hypothyroidism -Levothyroxine dose increased to 200mcg - rpt TSH Acute Kidney Injury prob sec to meds ( Vanco , NSAIDs), improved -rpt BMP in am - IVF hydration Thrombocytopenia like due to liver dis - will monitor DVT Proph - encourage ambulation -Lovenox , monitor due to low Platelet
[2018-09-17] MEDS: Piperacillin/Tazobact 3.375 GM in Sodium Chloride 0.9% 100 ML IVPB SCH ×3 (00:08→16:32)
[2018-09-17] MEDS: Levothyroxine 200 MCG TAB PO SCH (06:24)
[2018-09-17 07:28] LABS: HEMOGLOBIN 11.3 g/dL (12.0-18.0); MEAN CELL VOLUME 88.5 fl (80.0-94.0); MEAN CORPUSCULAR HEMOGLOBIN 30.7 pg (27.0-31.0); MEAN CORPUSCULAR HGB CONC 34.6 g/dL (33.0-37.0); RBC 3.68 Mil/uL (4.40-5.90); WHITE BLOOD COUNT 3.5 K/uL (4.8-10.8)
[2018-09-17] MEDS: Lidocaine 5% Patch TD SCH (08:38)
[2018-09-17] MEDS: Enoxaparin 40 mg Syringe SC SCH (08:39)
--- NOTE | 2018-09-17 12:05 | CP.PCM.PN ---
Subjective - Date & Time of Evaluation Date of Evaluation: 09/17/18 Time of Evaluation: 11:15 - Subjective Subjective: complains of insomnia sl low back pain no fever no abd pain no CP no SOB + BM + urine no saddle anesthesia Objective - Vital Signs/Intake and Output Vital Signs (last 24 hours): Temp Pulse Resp BP Pulse Ox 98.0 F 66 20 152/89 H 96 09/17/18 08:43 09/17/18 08:43 09/17/18 08:43 09/17/18 08:43 09/17/18 08:43 - Medications Medications: Current Medications Acetaminophen (Tylenol 325mg Tab) 650 mg PO Q6 PRN PRN Reason: for breakthrough pain moderate Last Admin: 09/17/18 00:07 Dose: 650 mg Amlodipine Besylate (Norvasc) 2.5 mg PO DAILY [facility] Last Admin: 09/17/18 08:39 Dose: 2.5 mg Docusate Sodium (Colace) 100 mg PO BID [facility] Last Admin: 09/17/18 08:38 Dose: 100 mg Enoxaparin Sodium (Lovenox) 40 mg SC DAILY [facility]; Protocol Last Admin: 09/17/18 08:39 Dose: 40 mg Piperacillin Sod/Tazobactam (Sod 3.375 gm/ Sodium Chloride) 100 mls @ 100 mls/hr IVPB Q8 [facility]; Protocol Last Admin: 09/17/18 08:40 Dose: 100 mls/hr Vancomycin HCl 1,500 mg/ (Sodium Chloride) 500 mls @ 333.333 mls/hr IVPB Q12H [facility]; Protocol Last Admin: 09/17/18 04:39 Dose: 333.333 mls/hr Ketorolac Tromethamine (Toradol) 15 mg IVP Q6 PRN PRN Reason: Pain, severe (8-10) Last Admin: 09/17/18 08:35 Dose: 15 mg Lactic Acid (Lac-Hydrin 12% Cream (140 G)) 1 ea TOP BID PRN PRN Reason: Dry skin Last Admin: 09/10/18 09:01 Dose: 1 ea Levothyroxine Sodium (Synthroid) 200 mcg PO DAILY@0630 [facility] Last Admin: 09/17/18 06:24 Dose: 200 mcg Lidocaine (Lidoderm) 1 ea TD DAILY [facility] Last Admin: 09/17/18 08:38 Dose: 1 ea Tramadol HCl (Ultram) 50 mg PO Q4 PRN PRN Reason: Pain, moderate (4-7) Last Admin: 09/17/18 06:02 Dose: 50 mg Trazodone HCl (Desyrel) 50 mg PO HS [facility] Last Admin: 09/16/18 22:00 Dose: 50 mg - Labs Labs: 09/17/18 06:30 09/15/18 05:55 - Constitutional Appears: Non-toxic, No Acute Distress - Head Exam Head Exam: ATRAUMATIC, NORMAL INSPECTION, NORMOCEPHALIC - Eye Exam Eye Exam: EOMI, Normal appearance, PERRL Pupil Exam: NORMAL ACCOMODATION - ENT Exam ENT Exam: Mucous Membranes Moist, Normal External Ear Exam - Neck Exam Neck Exam: Full ROM. absent: Meningismus - Respiratory Exam Respiratory Exam: NORMAL BREATHING PATTERN. absent: Respiratory Distress - Cardiovascular Exam Cardiovascular Exam: REGULAR RHYTHM, +S1, +S2 - GI/Abdominal Exam GI & Abdominal Exam: Soft, Normal Bowel Sounds. absent: Tenderness - Extremities Exam Extremities Exam: Full ROM, Normal Capillary Refill. absent: Calf Tenderness, Joint Swelling - Back Exam Back Exam: Full ROM, vertebral tenderness (upper lumbar). absent: CVA tenderness (L), CVA tenderness (R) - Neurological Exam Neurological Exam: Alert, Awake, CN II-XII Intact, Normal Gait, Oriented x3 Neuro motor strength exam: Left Upper Extremity: 5, Right Upper Extremity: 5, Left Lower Extremity: 5, Right Lower Extremity: 5 - Psychiatric Exam Psychiatric exam: Normal Affect, Normal Mood - Skin Skin Exam: Dry, Normal Color, Warm Additional comments: needle track duncan skin popping areas noted Assessment and Plan - Assessment and Plan (Free Text) Plan: Discitis/Osteomyelitis at L1-L2, L2-L3 No Epidural Abscess on MRI - - Pt has low back pain, no neuro deficit, no saddle anesthesia, voiding freely, + BM - MRI of the L spine with Gadolinium showed Osteo/Discitis , no mention of abscess - Neurosurgery consulted- Dr Lang - rec IR consult , per IR - no interven tion - Dr Alvarez ( security management specialist ) came to eval pt - no surgical intervention, rec TLSO Brace -cont IV Zosyn and Vanco - Crea improved , Vanco trough = 9 , change Vanco 1.5 gram q 12 and monitor closely - Pain Mgt - Ultram -Echo : no vegetation - Blood c/s : negative so far -ID consulted rec 6-8 wks of IV abx Active of IVDU - unable to d/c pt home with PICC due to hx of IVDU Hep C + -undetectable viral load Hypothyroidism -Levothyroxine dose increased to 200mcg as TSH markedly elevated - rpt TSH next wk Acute Kidney Injury prob sec to meds ( Vanco , NSAIDs), improved -rpt BMP in am - IVF hydration Thrombocytopenia like due to liver dis - will monitor Insomnia increase Trazodone to 100 mg q hs DVT Proph - encourage ambulation -Lovenox , monitor due to low Platelet
[2018-09-18] MEDS: Piperacillin/Tazobact 3.375 GM in Sodium Chloride 0.9% 100 ML IVPB SCH ×3 (00:42→16:00)
[2018-09-18] MEDS: Levothyroxine 200 MCG TAB PO SCH (07:27)
[2018-09-18] MEDS: Lidocaine 5% Patch TD SCH (09:51)
[2018-09-18] MEDS: Enoxaparin 40 mg Syringe SC SCH (09:51)
--- NOTE | 2018-09-18 12:28 | CP.PCM.PN ---
Subjective - Date & Time of Evaluation Date of Evaluation: 09/18/18 Time of Evaluation: 11:00 - Subjective Subjective: Patient seen and evaluated bedside . Hemodynamically stable, afebrile No acute issues overnight pain is better controlled. No acute issues overnight Objective - Vital Signs/Intake and Output Vital Signs (last 24 hours): Temp Pulse Resp BP Pulse Ox 97.7 F 61 20 135/89 97 09/18/18 08:28 09/18/18 09:52 09/18/18 08:28 09/18/18 09:52 09/18/18 08:28 - Medications Medications: Current Medications Acetaminophen (Tylenol 325mg Tab) 650 mg PO Q6 PRN PRN Reason: for breakthrough pain moderate Last Admin: 09/18/18 07:26 Dose: 650 mg Amlodipine Besylate (Norvasc) 2.5 mg PO DAILY [facility] Last Admin: 09/18/18 09:52 Dose: 2.5 mg Docusate Sodium (Colace) 100 mg PO BID [facility] Last Admin: 09/18/18 09:50 Dose: Not Given Enoxaparin Sodium (Lovenox) 40 mg SC DAILY [facility]; Protocol Last Admin: 09/18/18 09:51 Dose: 40 mg Piperacillin Sod/Tazobactam (Sod 3.375 gm/ Sodium Chloride) 100 mls @ 100 mls/hr IVPB Q8 [facility]; Protocol Last Admin: 09/18/18 09:53 Dose: 100 mls/hr Vancomycin HCl 1,500 mg/ (Sodium Chloride) 500 mls @ 333.333 mls/hr IVPB Q12H [facility]; Protocol Last Admin: 09/18/18 04:23 Dose: 333.333 mls/hr Ketorolac Tromethamine (Toradol) 15 mg IVP Q6 PRN PRN Reason: Pain, severe (8-10) Last Admin: 09/18/18 10:01 Dose: 15 mg Lactic Acid (Lac-Hydrin 12% Cream (140 G)) 1 ea TOP BID PRN PRN Reason: Dry skin Last Admin: 09/10/18 09:01 Dose: 1 ea Levothyroxine Sodium (Synthroid) 200 mcg PO DAILY@0630 [facility] Last Admin: 09/18/18 07:27 Dose: 200 mcg Lidocaine (Lidoderm) 1 ea TD DAILY [facility] Last Admin: 09/18/18 09:51 Dose: 1 ea Tramadol HCl (Ultram) 50 mg PO Q4 PRN PRN Reason: Pain, moderate (4-7) Last Admin: 09/18/18 00:47 Dose: 50 mg Trazodone HCl (Desyrel) 100 mg PO HS [facility] Last Admin: 09/17/18 21:11 Dose: 100 mg - Labs Labs: 09/17/18 06:30 09/15/18 05:55 - Constitutional Appears: Non-toxic, No Acute Distress - Head Exam Head Exam: ATRAUMATIC, NORMAL INSPECTION, NORMOCEPHALIC - Eye Exam Eye Exam: EOMI, Normal appearance, PERRL - ENT Exam ENT Exam: Mucous Membranes Moist, Normal Exam - Neck Exam Neck Exam: Full ROM, Normal Inspection - Respiratory Exam Respiratory Exam: Clear to Ausculation Bilateral, NORMAL BREATHING PATTERN. abs ent: Rales, Rhonchi, Wheezes - Cardiovascular Exam Cardiovascular Exam: REGULAR RHYTHM, RRR, +S1, +S2. absent: JVD - GI/Abdominal Exam GI & Abdominal Exam: Soft, Normal Bowel Sounds. absent: Distended, Tenderness, Rebound - Rectal Exam Rectal Exam: Deferred - Neurological Exam Neurological Exam: Alert, Awake, CN II-XII Intact - Psychiatric Exam Psychiatric exam: Normal Affect - Skin Skin Exam: Dry Additional comments: unstagable decubityu sulcer Assessment and Plan - Assessment and Plan (Free Text) Assessment: 42 y/o M with PMH IVDA presented with lower back and bilateral hip pain MRI showed osteomyelitis/discitis L1-L2 and possible L2-L3 ID consulted and started on IV Vanco and Zosyn Cultures with no growth so far Echo showed no vegetations As per ID patient will need 6-8 weeks of IV antibiotics Pain is vbetter controlled . 1. Lumbar spine OM/discitis Continue IV antibiotics for 6-8 weeks PICC line placed Unable to discharge since patient has history IVDA and no insurance Continue Vanco and Zosyn 2. DREA improved with hydration continue hydration and monitoring renal fxn onn Vanco to 1 g QD 3. Hypothyroidism uncontrolled Increased Synthroid to 175 mcg QD 4. Lower back pain -- better Placed lidoder patch Continue Tramadol , Toradol and Tylenol PRN Avoid narcotics 5. Chronic Thrombocytopenia unclear etiology stable 6. Hepatitis C viral load undetectable 7. IVDA 8. Hypertension Started Norvasc 2.5 mg PO QD
[2018-09-19] MEDS: Piperacillin/Tazobact 3.375 GM in Sodium Chloride 0.9% 100 ML IVPB SCH ×3 (00:01→16:27)
[2018-09-19] MEDS: Levothyroxine 200 MCG TAB PO SCH (06:00)
--- NOTE | 2018-09-19 09:04 | CP.PCM.PN ---
<Cameron Gurrola - Last Filed: 09/19/18 12:51> Subjective - Date & Time of Evaluation Date of Evaluation: 09/19/18 Time of Evaluation: 18:00 - Subjective Subjective: Patient seen and examined, no acute event overnight. Patient have no complains. Objective - Vital Signs/Intake and Output Vital Signs (last 24 hours): Temp Pulse Resp BP Pulse Ox 97.9 F 89 20 156/96 H 97 09/19/18 07:50 09/19/18 07:50 09/19/18 07:50 09/19/18 07:50 09/19/18 07:50 - Medications Medications: Current Medications Acetaminophen (Tylenol 325mg Tab) 650 mg PO Q6 PRN PRN Reason: for breakthrough pain moderate Last Admin: 09/18/18 18:50 Dose: 650 mg Amlodipine Besylate (Norvasc) 2.5 mg PO DAILY [facility] Last Admin: 09/18/18 09:52 Dose: 2.5 mg Docusate Sodium (Colace) 100 mg PO BID [facility] Last Admin: 09/18/18 15:59 Dose: Not Given Enoxaparin Sodium (Lovenox) 40 mg SC DAILY [facility]; Protocol Last Admin: 09/18/18 09:51 Dose: 40 mg Piperacillin Sod/Tazobactam (Sod 3.375 gm/ Sodium Chloride) 100 mls @ 100 mls/hr IVPB Q8 [facility]; Protocol Last Admin: 09/19/18 00:01 Dose: 100 mls/hr Vancomycin HCl 1,500 mg/ (Sodium Chloride) 500 mls @ 333.333 mls/hr IVPB Q12H [facility]; Protocol Last Admin: 09/19/18 04:01 Dose: 333.333 mls/hr Ketorolac Tromethamine (Toradol) 15 mg IVP Q6 PRN PRN Reason: Pain, severe (8-10) Last Admin: 09/19/18 04:02 Dose: 15 mg Lactic Acid (Lac-Hydrin 12% Cream (140 G)) 1 ea TOP BID PRN PRN Reason: Dry skin Last Admin: 09/10/18 09:01 Dose: 1 ea Levothyroxine Sodium (Synthroid) 200 mcg PO DAILY@0630 [facility] Last Admin: 09/19/18 06:00 Dose: 200 mcg Lidocaine (Lidoderm) 1 ea TD DAILY [facility] Last Admin: 09/18/18 09:51 Dose: 1 ea Tramadol HCl (Ultram) 50 mg PO Q4 PRN PRN Reason: Pain, moderate (4-7) Last Admin: 09/18/18 14:52 Dose: 50 mg Trazodone HCl (Desyrel) 100 mg PO HS [facility] Last Admin: 09/18/18 21:02 Dose: 100 mg - Labs Labs: 09/17/18 06:30 09/15/18 05:55 - Head Exam Head Exam: ATRAUMATIC, NORMAL INSPECTION, NORMOCEPHALIC - Eye Exam Eye Exam: EOMI, Normal appearance, PERRL Pupil Exam: NORMAL ACCOMODATION, PERRL - ENT Exam ENT Exam: Mucous Membranes Moist, Normal Exam - Neck Exam Neck Exam: Full ROM, Normal Inspection - Respiratory Exam Respiratory Exam: Clear to Ausculation Bilateral, NORMAL BREATHING PATTERN - Cardiovascular Exam Cardiovascular Exam: REGULAR RHYTHM, +S1, +S2 - GI/Abdominal Exam GI & Abdominal Exam: Soft, Normal Bowel Sounds - Extremities Exam Extremities Exam: Full ROM, Normal Capillary Refill, Normal Inspection - Neurological Exam Neurological Exam: Alert, Awake, Oriented x3 - Psychiatric Exam Psychiatric exam: Normal Affect - Skin Skin Exam: Dry, Intact, Warm Assessment and Plan - Assessment and Plan (Free Text) Assessment: 42 yo male with PMh of IVDA presented with lower back and bilateral hip pain. MRI showed osteomyelitis/discitis L1-L2 and possible L2-L3 ID consulted and started on IV Vanco and Zosyn Cultures with no growth so far Echo showed no vegetations As per ID patient will need 6-8 weeks of IV antibiotics Pain is vbetter controlled . On Vancomycin 1.5 gm QD (day 23) & zosyn 3.375 Q8 (day 23) 1. Lumbar spine OM/discitis Continue IV antibiotics for 6-8 weeks PICC line placed Unable to discharge since patient has history IVDA and no insurance Continue Vanco and Zosyn 2. DREA improved with hydration continue hydration and monitoring renal fxn onn Vanco to 1 g QD 3. Hypothyroidism uncontrolled Increased Synthroid to 175 mcg QD 4. Lower back pain improved Placed lidoder patch Continue Tramadol , Toradol and Tylenol PRN Avoid narcotics 5. Chronic Thrombocytopenia unclear etiology stable 6. Hepatitis C viral load undetectable 7. IVDA 8. Hypertension Continue Norvasc 2.5 mg PO QD <CorralesJarrod D - Last Filed: 09/19/18 15:45> Objective - Vital Signs/Intake and Output Vital Signs (last 24 hours): Temp Pulse Resp BP Pulse Ox 97.9 F 89 20 156/96 H 97 09/19/18 07:50 09/19/18 09:13 09/19/18 07:50 09/19/18 09:13 09/19/18 07:50 - Medications Medications: Current Medications Acetaminophen (Tylenol 325mg Tab) 650 mg PO Q6 PRN PRN Reason: for breakthrough pain moderate Last Admin: 09/18/18 18:50 Dose: 650 mg Amlodipine Besylate (Norvasc) 2.5 mg PO DAILY [facility] Last Admin: 09/19/18 09:13 Dose: 2.5 mg Docusate Sodium (Colace) 100 mg PO BID [facility] Last Admin: 09/19/18 09:13 Dose: 100 mg Enoxaparin Sodium (Lovenox) 40 mg SC DAILY [facility]; Protocol Last Admin: 09/19/18 09:12 Dose: 40 mg Piperacillin Sod/Tazobactam (Sod 3.375 gm/ Sodium Chloride) 100 mls @ 100 mls/hr IVPB Q8 [facility]; Protocol Last Admin: 09/19/18 09:11 Dose: 100 mls/hr Vancomycin HCl 1,500 mg/ (Sodium Chloride) 500 mls @ 333.333 mls/hr IVPB Q12H [facility]; Protocol Last Admin: 09/19/18 04:01 Dose: 333.333 mls/hr Ketorolac Tromethamine (Toradol) 15 mg IVP Q6 PRN PRN Reason: Pain, severe (8-10) Last Admin: 09/19/18 10:14 Dose: 15 mg Lactic Acid (Lac-Hydrin 12% Cream (140 G)) 1 ea TOP BID PRN PRN Reason: Dry skin Last Admin: 09/10/18 09:01 Dose: 1 ea Levothyroxine Sodium (Synthroid) 200 mcg PO DAILY@0630 [facility] Last Admin: 09/19/18 06:00 Dose: 200 mcg Lidocaine (Lidoderm) 1 ea TD DAILY [facility] Last Admin: 09/19/18 09:14 Dose: 1 ea Tramadol HCl (Ultram) 50 mg PO Q4 PRN PRN Reason: Pain, moderate (4-7) Last Admin: 09/19/18 14:07 Dose: 50 mg Trazodone HCl (Desyrel) 100 mg PO HS [facility] Last Admin: 09/18/18 21:02 Dose: 100 mg - Labs Labs: 09/17/18 06:30 09/15/18 05:55 Attending/Attestation - Attestation I have personally seen and examined this patient.: Yes I have fully participated in the care of the patient.: Yes I have reviewed all pertinent clinical information, including history, physical exam and plan: Yes Notes (Text): 09/19/18 15:43 Patient seen and examined with resident. Case discussed and agreed with assessment and plan.
[2018-09-19] MEDS: Enoxaparin 40 mg Syringe SC SCH (09:12)
[2018-09-19] MEDS: Lidocaine 5% Patch TD SCH (09:14)
[2018-09-20] MEDS: Levothyroxine 200 MCG TAB PO SCH (06:22)
[2018-09-20 06:49] LABS: BASO % 0.8 % (0.0-2.0); EOS # 0.1 K/uL (0.0-0.7); EOS % 3.8 % (0.0-4.0); HEMOGLOBIN 10.7 g/dL (12.0-18.0); LYMPH # 0.8 K/uL (1.0-4.3); LYMPH % 26.5 % (20.0-40.0); MEAN CELL VOLUME 88.9 fl (80.0-94.0); MEAN CORPUSCULAR HEMOGLOBIN 30.3 pg (27.0-31.0); MEAN PLATELET VOLUME 7.9 fl (7.2-11.7); MONO # 0.3 K/uL (0.0-0.8); MONO % 10.4 % (0.0-10.0); NEUT # 1.7 K/uL (1.8-7.0); NEUT % 58.5 % (50.0-75.0); NRBC % 0.3 % (0.0-0.0); RBC 3.54 Mil/uL (4.40-5.90); RED CELL DISTRIBUTION WIDTH 14.5 % (11.5-14.5); WHITE BLOOD COUNT 2.9 K/uL (4.8-10.8)
[2018-09-20] MEDS: Lidocaine 5% Patch TD SCH (09:06)
[2018-09-20] MEDS: Enoxaparin 40 mg Syringe SC SCH (09:07)
[2018-09-20] MEDS: Piperacillin/Tazobact 3.375 GM in Sodium Chloride 0.9% 100 ML IVPB SCH ×3 (09:09→17:11)
--- NOTE | 2018-09-20 10:07 | CP.PCM.PN ---
<Crystal HessdamonCameron - Last Filed: 09/20/18 10:08> Subjective - Date & Time of Evaluation Date of Evaluation: 09/20/18 Time of Evaluation: 07:00 - Subjective Subjective: Patient seen and examined at bedside. no acute event overnight. Patient have difficulty sleeping at night. Urged to walk around the hallway. Patient refuse. Objective - Vital Signs/Intake and Output Vital Signs (last 24 hours): Temp Pulse Resp BP Pulse Ox 97.8 F 60 18 140/84 97 09/20/18 08:05 09/20/18 09:08 09/20/18 08:05 09/20/18 09:08 09/20/18 08:05 - Medications Medications: Current Medications Acetaminophen (Tylenol 325mg Tab) 650 mg PO Q6 PRN PRN Reason: for breakthrough pain moderate Last Admin: 09/20/18 00:05 Dose: 650 mg Amlodipine Besylate (Norvasc) 5 mg PO DAILY [facility] Last Admin: 09/20/18 09:08 Dose: 5 mg Docusate Sodium (Colace) 100 mg PO BID [facility] Last Admin: 09/20/18 09:06 Dose: Not Given Enoxaparin Sodium (Lovenox) 40 mg SC DAILY [facility]; Protocol Last Admin: 09/20/18 09:07 Dose: 40 mg Piperacillin Sod/Tazobactam (Sod 3.375 gm/ Sodium Chloride) 100 mls @ 100 mls/hr IVPB Q8 [facility]; Protocol Last Admin: 09/20/18 09:09 Dose: 100 mls/hr Vancomycin HCl 1,500 mg/ (Sodium Chloride) 500 mls @ 333.333 mls/hr IVPB Q12H [facility]; Protocol Last Admin: 09/20/18 04:35 Dose: 333.333 mls/hr Ketorolac Tromethamine (Toradol) 15 mg IVP Q6 PRN PRN Reason: Pain, severe (8-10) Last Admin: 09/20/18 09:08 Dose: 15 mg Lactic Acid (Lac-Hydrin 12% Cream (140 G)) 1 ea TOP BID PRN PRN Reason: Dry skin Last Admin: 09/10/18 09:01 Dose: 1 ea Levothyroxine Sodium (Synthroid) 200 mcg PO DAILY@0630 [facility] Last Admin: 09/20/18 06:22 Dose: 200 mcg Lidocaine (Lidoderm) 1 ea TD DAILY [facility] Last Admin: 09/20/18 09:06 Dose: 1 ea Tramadol HCl (Ultram) 50 mg PO Q4 PRN PRN Reason: Pain, moderate (4-7) Last Admin: 09/19/18 14:07 Dose: 50 mg Trazodone HCl (Desyrel) 100 mg PO HS [facility] Last Admin: 09/19/18 21:07 Dose: 100 mg - Labs Labs: 09/20/18 06:30 09/15/18 05:55 - Constitutional Appears: Well, Non-toxic, No Acute Distress - Head Exam Head Exam: ATRAUMATIC, NORMAL INSPECTION, NORMOCEPHALIC - Eye Exam Eye Exam: EOMI, Normal appearance, PERRL Pupil Exam: NORMAL ACCOMODATION, PERRL - ENT Exam ENT Exam: Mucous Membranes Moist, Normal Exam - Neck Exam Neck Exam: Full ROM, Normal Inspection - Respiratory Exam Respiratory Exam: Clear to Ausculation Bilateral, NORMAL BREATHING PATTERN - Cardiovascular Exam Cardiovascular Exam: REGULAR RHYTHM, +S1, +S2 - GI/Abdominal Exam GI & Abdominal Exam: Soft, Normal Bowel Sounds - Extremities Exam Extremities Exam: Full ROM, Normal Capillary Refill, Normal Inspection - Back Exam Back Exam: NORMAL INSPECTION - Neurological Exam Neurological Exam: Alert, Awake, CN II-XII Intact, Normal Gait, Oriented x3 - Psychiatric Exam Psychiatric exam: Normal Affect, Normal Mood - Skin Skin Exam: Dry, Normal Color, Warm Assessment and Plan - Assessment and Plan (Free Text) Assessment: 42 yo male with PMh of IVDA presented with lower back and bilateral hip pain. MRI showed osteomyelitis/discitis L1-L2 and possible L2-L3 ID consulted and started on IV Vanco and Zosyn Cultures with no growth so far Echo showed no vegetations As per ID patient will need 6-8 weeks of IV antibiotics Pain is vbetter controlled . On Vancomycin 1.5 gm QD (day 24) & zosyn 3.375 Q8 (day 24) 1. Lumbar spine OM/discitis Continue IV antibiotics for 6-8 weeks PICC line placed Unable to discharge since patient has history IVDA and no insurance Continue Vanco and Zosyn 2. DREA improved with hydration continue hydration and monitoring renal fxn onn Vanco to 1 g QD 3. Hypothyroidism Improving TSH 4.75, Prev 35.7 Synthroid to 175 mcg QD 4. Lower back pain improved Placed lidoderm patch Continue Tramadol , Toradol and Tylenol PRN Avoid narcotics 5. Chronic Thrombocytopenia unclear etiology stable 6. Hepatitis C viral load undetectable 7. IVDA 8. Hypertension Improving DVT proph Lovenox 40mg Patient urged to walk around, this will prevent from DVT and help him sleep at night. <CedKelybrian Felton - Last Filed: 09/20/18 16:24> Objective - Vital Signs/Intake and Output Vital Signs (last 24 hours): Temp Pulse Resp BP Pulse Ox 98.5 F 63 20 138/81 97 09/20/18 15:36 09/20/18 15:36 09/20/18 15:36 09/20/18 15:36 09/20/18 15:36 - Medications Medications: Current Medications Acetaminophen (Tylenol 325mg Tab) 650 mg PO Q6 PRN PRN Reason: for breakthrough pain moderate Last Admin: 09/20/18 00:05 Dose: 650 mg Amlodipine Besylate (Norvasc) 5 mg PO DAILY [facility] Last Admin: 09/20/18 09:08 Dose: 5 mg Docusate Sodium (Colace) 100 mg PO BID [facility] Last Admin: 09/20/18 09:06 Dose: Not Given Enoxaparin Sodium (Lovenox) 40 mg SC DAILY [facility]; Protocol Last Admin: 09/20/18 09:07 Dose: 40 mg Piperacillin Sod/Tazobactam (Sod 3.375 gm/ Sodium Chloride) 100 mls @ 100 mls/hr IVPB Q8 [facility]; Protocol Last Admin: 09/20/18 09:09 Dose: 100 mls/hr Vancomycin HCl 1,500 mg/ (Sodium Chloride) 500 mls @ 333.333 mls/hr IVPB Q12H [facility]; Protocol Last Admin: 09/20/18 04:35 Dose: 333.333 mls/hr Ketorolac Tromethamine (Toradol) 15 mg IVP Q6 PRN PRN Reason: Pain, severe (8-10) Last Admin: 09/20/18 14:34 Dose: 15 mg Lactic Acid (Lac-Hydrin 12% Cream (140 G)) 1 ea TOP BID PRN PRN Reason: Dry skin Last Admin: 09/10/18 09:01 Dose: 1 ea Levothyroxine Sodium (Synthroid) 200 mcg PO DAILY@0630 [facility] Last Admin: 09/20/18 06:22 Dose: 200 mcg Lidocaine (Lidoderm) 1 ea TD DAILY [facility] Last Admin: 09/20/18 09:06 Dose: 1 ea Tramadol HCl (Ultram) 50 mg PO Q4 PRN PRN Reason: Pain, moderate (4-7) Last Admin: 09/20/18 11:47 Dose: 50 mg Trazodone HCl (Desyrel) 100 mg PO HS [facility] Last Admin: 09/19/18 21:07 Dose: 100 mg - Labs Labs: 09/20/18 06:30 09/15/18 05:55 Attending/Attestation - Attestation I have personally seen and examined this patient.: Yes I have fully participated in the care of the patient.: Yes I have reviewed all pertinent clinical information, including history, physical exam and plan: Yes Notes (Text): 09/20/18 16:24 Discitis/Osteomyelitis at L1-L2, L2-L3 No Epidural Abscess on MRI - - Pt has low back pain, no neuro deficit, no saddle anesthesia, voiding freely, + BM - MRI of the L spine with Gadolinium showed Osteo/Discitis , no mention of abscess - Neurosurgery consulted- Dr Lang - rec IR consult , per IR - no intervention - Dr Alvarez ( soil specialist ) came to eval pt - no surgical intervention, rec TLSO Brace -cont IV Zosyn and Vanco - Crea improved , Vanco trough = 9 , change Vanco 1.5 gram q 12 and monitor closely - Pain Mgt - Ultram -Echo : no vegetation - Blood c/s : negative so far -ID consulted rec 6-8 wks of IV abx Active of IVDU - unable to d/c pt home with PICC due to hx of IVDU Hep C + -undetectable viral load Hypothyroidism -Levothyroxine dose increased to 200mcg as TSH markedly elevated - rpt TSH now down to 4.75 Acute Kidney Injury prob sec to meds ( Vanco , NSAIDs), improved -rpt BMP in am - IVF hydration Thrombocytopenia like due to liver dis - will monitor Insomnia increase Trazodone to 100 mg q hs DVT Proph - encourage ambulation -Lovenox , monitor due to low Platelet
[2018-09-21] MEDS: Piperacillin/Tazobact 3.375 GM in Sodium Chloride 0.9% 100 ML IVPB SCH ×3 (01:43→16:55)
[2018-09-21] MEDS: Levothyroxine 200 MCG TAB PO SCH (05:55)
--- NOTE | 2018-09-21 08:20 | CP.PCM.PN ---
<Cameron Gurrola - Last Filed: 09/21/18 10:22> Subjective - Date & Time of Evaluation Date of Evaluation: 09/21/18 Time of Evaluation: 07:00 - Subjective Subjective: Patient seen and examined at bedside. No acute event overnight. Patient have no complaints Objective - Vital Signs/Intake and Output Vital Signs (last 24 hours): Temp Pulse Resp BP Pulse Ox 98.0 F 65 20 144/81 98 09/21/18 08:12 09/21/18 08:12 09/21/18 08:12 09/21/18 08:12 09/21/18 08:12 - Medications Medications: Current Medications Acetaminophen (Tylenol 325mg Tab) 650 mg PO Q6 PRN PRN Reason: for breakthrough pain moderate Last Admin: 09/20/18 17:56 Dose: 650 mg Amlodipine Besylate (Norvasc) 5 mg PO DAILY [facility] Last Admin: 09/20/18 09:08 Dose: 5 mg Docusate Sodium (Colace) 100 mg PO BID [facility] Last Admin: 09/20/18 17:12 Dose: Not Given Enoxaparin Sodium (Lovenox) 40 mg SC DAILY [facility]; Protocol Last Admin: 09/20/18 09:07 Dose: 40 mg Piperacillin Sod/Tazobactam (Sod 3.375 gm/ Sodium Chloride) 100 mls @ 100 mls/hr IVPB Q8 [facility]; Protocol Last Admin: 09/21/18 01:43 Dose: 100 mls/hr Vancomycin HCl 1,500 mg/ (Sodium Chloride) 500 mls @ 333.333 mls/hr IVPB Q12H [facility]; Protocol Last Admin: 09/21/18 04:20 Dose: 333.333 mls/hr Ketorolac Tromethamine (Toradol) 15 mg IVP Q6 PRN PRN Reason: Pain, severe (8-10) Last Admin: 09/21/18 03:00 Dose: 15 mg Lactic Acid (Lac-Hydrin 12% Cream (140 G)) 1 ea TOP BID PRN PRN Reason: Dry skin Last Admin: 09/10/18 09:01 Dose: 1 ea Levothyroxine Sodium (Synthroid) 200 mcg PO DAILY@0630 [facility] Last Admin: 09/21/18 05:55 Dose: 200 mcg Lidocaine (Lidoderm) 1 ea TD DAILY [facility] Last Admin: 09/20/18 09:06 Dose: 1 ea Tramadol HCl (Ultram) 50 mg PO Q4 PRN PRN Reason: Pain, moderate (4-7) Last Admin: 09/20/18 20:00 Dose: 50 mg Trazodone HCl (Desyrel) 100 mg PO HS [facility] Last Admin: 09/20/18 21:30 Dose: 100 mg - Labs Labs: 09/20/18 06:30 09/15/18 05:55 - Constitutional Appears: Well, Non-toxic, No Acute Distress - Head Exam Head Exam: ATRAUMATIC, NORMAL INSPECTION, NORMOCEPHALIC - Eye Exam Eye Exam: EOMI, Normal appearance, PERRL Pupil Exam: NORMAL ACCOMODATION, PERRL - ENT Exam ENT Exam: Mucous Membranes Moist, Normal Exam - Neck Exam Neck Exam: Full ROM, Normal Inspection - Respiratory Exam Respiratory Exam: Clear to Ausculation Bilateral, NORMAL BREATHING PATTERN - Cardiovascular Exam Cardiovascular Exam: REGULAR RHYTHM, +S1, +S2 - GI/Abdominal Exam GI & Abdominal Exam: Soft, Normal Bowel Sounds - Extremities Exam Extremities Exam: Full ROM, Normal Capillary Refill, Normal Inspection - Back Exam Back Exam: NORMAL INSPECTION - Neurological Exam Neurological Exam: Awake, Normal Gait, Oriented x3 - Psychiatric Exam Psychiatric exam: Normal Affect, Normal Mood - Skin Skin Exam: Dry, Intact, Normal Color, Warm Assessment and Plan - Assessment and Plan (Free Text) Assessment: 42 yo male with PMh of IVDA presented with lower back and bilateral hip pain. MRI showed osteomyelitis/discitis L1-L2 and possible L2-L3 ID consulted and started on IV Vanco and Zosyn Cultures with no growth so far Echo showed no vegetations As per ID patient will need 6-8 weeks of IV antibiotics Pain is vbetter controlled . On Vancomycin 1.5 gm QD (day 25) & zosyn 3.375 Q8 (day 25) 1. Lumbar spine OM/discitis Continue IV antibiotics for 6-8 weeks PICC line placed Unable to discharge since patient has history IVDA and no insurance Continue Vanco and Zosyn 2. DREA improved with hydration continue hydration and monitoring renal fxn onn Vanco to 1 g QD 3. Hypothyroidism Improving TSH 4.75, Prev 35.7 Synthroid to 175 mcg QD 4. Lower back pain improved Placed lidoderm patch Continue Tramadol , Toradol and Tylenol PRN Avoid narcotics 5. Chronic Thrombocytopenia unclear etiology stable 6. Hepatitis C viral load undetectable 7. IVDA 8. Hypertension Improving DVT proph Lovenox 40mg <Kely Coughlin - Last Filed: 09/21/18 16:28> Objective - Vital Signs/Intake and Output Vital Signs (last 24 hours): Temp Pulse Resp BP Pulse Ox 98.2 F 67 20 139/84 99 09/21/18 15:55 09/21/18 15:55 09/21/18 15:55 09/21/18 15:55 09/21/18 15:55 - Medications Medications: Current Medications Acetaminophen (Tylenol 325mg Tab) 650 mg PO Q6 PRN PRN Reason: for breakthrough pain moderate Last Admin: 09/21/18 13:20 Dose: 650 mg Amlodipine Besylate (Norvasc) 5 mg PO DAILY [facility] Last Admin: 09/21/18 09:09 Dose: 5 mg Docusate Sodium (Colace) 100 mg PO BID [facility] Last Admin: 09/21/18 09:11 Dose: Not Given Enoxaparin Sodium (Lovenox) 40 mg SC DAILY [facility]; Protocol Last Admin: 09/21/18 09:09 Dose: 40 mg Piperacillin Sod/Tazobactam (Sod 3.375 gm/ Sodium Chloride) 100 mls @ 100 mls/hr IVPB Q8 [facility]; Protocol Last Admin: 09/21/18 09:09 Dose: 100 mls/hr Vancomycin HCl 1,500 mg/ (Sodium Chloride) 500 mls @ 333.333 mls/hr IVPB Q12H [facility]; Protocol Last Admin: 09/21/18 04:20 Dose: 333.333 mls/hr Ketorolac Tromethamine (Toradol) 15 mg IVP Q6 PRN PRN Reason: Pain, severe (8-10) Last Admin: 09/21/18 14:45 Dose: 15 mg Lactic Acid (Lac-Hydrin 12% Cream (140 G)) 1 ea TOP BID PRN PRN Reason: Dry skin Last Admin: 09/10/18 09:01 Dose: 1 ea Levothyroxine Sodium (Synthroid) 200 mcg PO DAILY@0630 [facility] Last Admin: 09/21/18 05:55 Dose: 200 mcg Lidocaine (Lidoderm) 1 ea TD DAILY [facility] Last Admin: 09/21/18 09:10 Dose: 1 ea Tramadol HCl (Ultram) 50 mg PO Q4 PRN PRN Reason: Pain, moderate (4-7) Last Admin: 09/20/18 20:00 Dose: 50 mg Trazodone HCl (Desyrel) 100 mg PO HS [facility] Last Admin: 09/20/18 21:30 Dose: 100 mg - Labs Labs: 09/21/18 12:00 09/15/18 05:55 Attending/Attestation - Attestation I have personally seen and examined this patient.: Yes I have fully participated in the care of the patient.: Yes I have reviewed all pertinent clinical information, including history, physical exam and plan: Yes Notes (Text): Discitis/Osteomyelitis at L1-L2, L2-L3 No Epidural Abscess on MRI Active of IVDU Hep C + Hypothyroidism Acute Kidney Injury prob sec to meds Thrombocytopenia like due to liver dis Insomnia cont IV Vanco and Zosyn check Vanco trough cont Levothyroxine Pain mgt IR to check PICC ,line today
[2018-09-21] MEDS: Enoxaparin 40 mg Syringe SC SCH (09:09)
[2018-09-21] MEDS: Lidocaine 5% Patch TD SCH (09:10)
[2018-09-21 12:10] LABS: BASO % 1.1 % (0.0-2.0); EOS # 0.1 K/uL (0.0-0.7); HEMOGLOBIN 11.7 g/dL (12.0-18.0); LYMPH # 0.8 K/uL (1.0-4.3); MEAN CELL VOLUME 89.7 fl (80.0-94.0); MEAN CORPUSCULAR HEMOGLOBIN 30.5 pg (27.0-31.0); MEAN PLATELET VOLUME 7.6 fl (7.2-11.7); MONO # 0.4 K/uL (0.0-0.8); MONO % 9.5 % (0.0-10.0); NEUT # 3.1 K/uL (1.8-7.0); NEUT % 68.4 % (50.0-75.0); RBC 3.82 Mil/uL (4.40-5.90); RED CELL DISTRIBUTION WIDTH 14.8 % (11.5-14.5); WHITE BLOOD COUNT 4.5 K/uL (4.8-10.8)
[2018-09-22] MEDS: Piperacillin/Tazobact 3.375 GM in Sodium Chloride 0.9% 100 ML IVPB SCH ×3 (01:22→16:36)
[2018-09-22 04:36] LABS: ALB/GLOB RATIO 0.7 (1.0-2.1); ALBUMIN 3.5 g/dL (3.5-5.0); ALT/SGPT 35 U/L (21-72); AST/SGOT 54 U/L (17-59); BLOOD UREA NITROGEN 15 mg/dl (9-20); CALCIUM 8.8 mg/dL (8.4-10.2); GFR NON-AFRICAN AMERICAN > 60
[2018-09-22 04:37] LABS: BASO % 1.1 % (0.0-2.0); EOS # 0.1 K/uL (0.0-0.7); EOS % 3.3 % (0.0-4.0); HEMOGLOBIN 11.8 g/dL (12.0-18.0); LYMPH # 0.8 K/uL (1.0-4.3); LYMPH % 20.9 % (20.0-40.0); MEAN CORPUSCULAR HEMOGLOBIN 30.4 pg (27.0-31.0); MEAN CORPUSCULAR HGB CONC 34.2 g/dL (33.0-37.0); MEAN PLATELET VOLUME 7.8 fl (7.2-11.7); MONO # 0.4 K/uL (0.0-0.8); MONO % 9.3 % (0.0-10.0); NEUT # 2.6 K/uL (1.8-7.0); NEUT % 65.4 % (50.0-75.0); NRBC % 0.1 % (0.0-0.0); RBC 3.87 Mil/uL (4.40-5.90); RED CELL DISTRIBUTION WIDTH 14.8 % (11.5-14.5); WHITE BLOOD COUNT 3.9 K/uL (4.8-10.8)
[2018-09-22] MEDS: Levothyroxine 200 MCG TAB PO SCH (05:55)
[2018-09-22] MEDS: Lidocaine 5% Patch TD SCH (08:45)
--- NOTE | 2018-09-22 11:31 | CP.PCM.PN ---
<Cameron Gurrola - Last Filed: 09/22/18 11:31> Subjective - Date & Time of Evaluation Date of Evaluation: 09/22/18 Time of Evaluation: 07:00 - Subjective Subjective: Patient is seen and examined at bedside. No acute event overnight. Patient is doing well. Objective - Vital Signs/Intake and Output Vital Signs (last 24 hours): Temp Pulse Resp BP Pulse Ox 98.0 F 75 19 135/80 97 09/22/18 08:01 09/22/18 08:46 09/22/18 08:01 09/22/18 08:46 09/22/18 08:01 - Medications Medications: Current Medications Acetaminophen (Tylenol 325mg Tab) 650 mg PO Q6 PRN PRN Reason: for breakthrough pain moderate Last Admin: 09/21/18 23:10 Dose: 650 mg Amlodipine Besylate (Norvasc) 5 mg PO DAILY [facility] Last Admin: 09/22/18 08:46 Dose: 5 mg Docusate Sodium (Colace) 100 mg PO BID [facility] Last Admin: 09/22/18 08:45 Dose: Not Given Enoxaparin Sodium (Lovenox) 40 mg SC DAILY [facility]; Protocol Last Admin: 09/21/18 09:09 Dose: 40 mg Piperacillin Sod/Tazobactam (Sod 3.375 gm/ Sodium Chloride) 100 mls @ 100 m ls/hr IVPB Q8 [facility]; Protocol Last Admin: 09/22/18 08:47 Dose: 100 mls/hr Vancomycin HCl 1,500 mg/ (Sodium Chloride) 500 mls @ 333.333 mls/hr IVPB Q12H [facility]; Protocol Last Admin: 09/21/18 17:37 Dose: 333.333 mls/hr Ketorolac Tromethamine (Toradol) 15 mg IVP Q6 PRN PRN Reason: Pain, severe (8-10) Last Admin: 09/22/18 08:40 Dose: 15 mg Lactic Acid (Lac-Hydrin 12% Cream (140 G)) 1 ea TOP BID PRN PRN Reason: Dry skin Last Admin: 09/10/18 09:01 Dose: 1 ea Levothyroxine Sodium (Synthroid) 200 mcg PO DAILY@0630 [facility] Last Admin: 09/22/18 05:55 Dose: 200 mcg Lidocaine (Lidoderm) 1 ea TD DAILY [facility] Last Admin: 09/22/18 08:45 Dose: 1 ea Tramadol HCl (Ultram) 50 mg PO Q4 PRN PRN Reason: Pain, moderate (4-7) Last Admin: 09/21/18 18:35 Dose: 50 mg Trazodone HCl (Desyrel) 100 mg PO HS [facility] Last Admin: 09/21/18 21:11 Dose: 100 mg - Labs Labs: 09/22/18 04:00 09/22/18 04:00 - Constitutional Appears: Well, Non-toxic, No Acute Distress - Head Exam Head Exam: ATRAUMATIC, NORMAL INSPECTION, NORMOCEPHALIC - Eye Exam Eye Exam: EOMI, Normal appearance, PERRL Pupil Exam: NORMAL ACCOMODATION, PERRL - ENT Exam ENT Exam: Mucous Membranes Moist, Normal Exam - Neck Exam Neck Exam: Full ROM, Normal Inspection - Respiratory Exam Respiratory Exam: Clear to Ausculation Bilateral, NORMAL BREATHING PATTERN - Cardiovascular Exam Cardiovascular Exam: REGULAR RHYTHM, +S1, +S2 - GI/Abdominal Exam GI & Abdominal Exam: Soft, Normal Bowel Sounds - Extremities Exam Extremities Exam: Full ROM, Normal Capillary Refill, Normal Inspection - Back Exam Back Exam: NORMAL INSPECTION - Neurological Exam Neurological Exam: Alert, Awake, Oriented x3 - Psychiatric Exam Psychiatric exam: Normal Affect, Normal Mood - Skin Skin Exam: Dry, Intact, Normal Color, Warm Assessment and Plan - Assessment and Plan (Free Text) Assessment: 42 yo male with PMh of IVDA presented with lower back and bilateral hip pain. MRI showed osteomyelitis/discitis L1-L2 and possible L2-L3 ID consulted and started on IV Vanco and Zosyn Cultures with no growth so far Echo showed no vegetations As per ID patient will need 6-8 weeks of IV antibiotics Pain is better controlled . On Vancomycin 1.5 gm QD (day 25) & zosyn 3.375 Q8 (day 26) Hold vanco due vanco trough of 24. 1. Lumbar spine OM/discitis Continue IV antibiotics for 6-8 weeks PICC line placed Unable to discharge since patient has history IVDA and no insurance On vanco and zosyn 2. DREA improved with hydration continue hydration and monitoring renal fxn on Vanco to 1 g QD on hold 3. Hypothyroidism Improving TSH 4.75, Prev 35.7 Synthroid to 175 mcg QD 4. Lower back pain improved Placed lidoderm patch Continue Tramadol , Toradol and Tylenol PRN Avoid narcotics 5. Chronic Thrombocytopenia unclear etiology stable 6. Hepatitis C viral load undetectable 7. IVDA 8. Hypertension Improving DVT prophylaxis Hold Lovenox due to drop in plt <Kely Coughlin - Last Filed: 09/22/18 14:54> Objective - Vital Signs/Intake and Output Vital Signs (last 24 hours): Temp Pulse Resp BP Pulse Ox 98.0 F 75 19 135/80 97 09/22/18 08:01 09/22/18 08:46 09/22/18 08:01 09/22/18 08:46 09/22/18 08:01 - Medications Medications: Current Medications Acetaminophen (Tylenol 325mg Tab) 650 mg PO Q6 PRN PRN Reason: for breakthrough pain moderate Last Admin: 09/22/18 14:10 Dose: 650 mg Amlodipine Besylate (Norvasc) 5 mg PO DAILY [facility] Last Admin: 09/22/18 08:46 Dose: 5 mg Docusate Sodium (Colace) 100 mg PO BID [facility] Last Admin: 09/22/18 08:45 Dose: Not Given Enoxaparin Sodium (Lovenox) 40 mg SC DAILY [facility]; Protocol Last Admin: 09/21/18 09:09 Dose: 40 mg Piperacillin Sod/Tazobactam (Sod 3.375 gm/ Sodium Chloride) 100 mls @ 100 mls/hr IVPB Q8 [facility]; Protocol Last Admin: 09/22/18 08:47 Dose: 100 mls/hr Vancomycin HCl 1,500 mg/ (Sodium Chloride) 500 mls @ 333.333 mls/hr IVPB DAILY [facility]; Protocol Ketorolac Tromethamine (Toradol) 15 mg IVP Q6 PRN PRN Reason: Pain, severe (8-10) Last Admin: 09/22/18 08:40 Dose: 15 mg Lactic Acid (Lac-Hydrin 12% Cream (140 G)) 1 ea TOP BID PRN PRN Reason: Dry skin Last Admin: 09/10/18 09:01 Dose: 1 ea Levothyroxine Sodium (Synthroid) 200 mcg PO DAILY@0630 [facility] Last Admin: 09/22/18 05:55 Dose: 200 mcg Lidocaine (Lidoderm) 1 ea TD DAILY [facility] Last Admin: 09/22/18 08:45 Dose: 1 ea Tramadol HCl (Ultram) 50 mg PO Q4 PRN PRN Reason: Pain, moderate (4-7) Last Admin: 09/21/18 18:35 Dose: 50 mg Trazodone HCl (Desyrel) 100 mg PO HS [facility] Last Admin: 09/21/18 21:11 Dose: 100 mg - Labs Labs: 09/22/18 04:00 09/22/18 04:00 Attending/Attestation - Attestation I have personally seen and examined this patient.: Yes I have fully participated in the care of the patient.: Yes I have reviewed all pertinent clinical information, including history, physical exam and plan: Yes Notes (Text): Discitis/Osteomyelitis at L1-L2, L2-L3 No Epidural Abscess on MRI Active of IVDU Hep C + Hypothyroidism Acute Kidney Injury prob sec to meds Thrombocytopenia like due to liver dis Insomnia cont IV Vanco and Zosyn Vanco trough elevated , will decrease Vanco dose to once daily cont Levothyroxine Pain mgt Hold Lovenox due to low Platelet
[2018-09-23] MEDS: Piperacillin/Tazobact 3.375 GM in Sodium Chloride 0.9% 100 ML IVPB SCH ×3 (01:05→16:29)
[2018-09-23] MEDS: Levothyroxine 200 MCG TAB PO SCH (05:30)
--- NOTE | 2018-09-23 07:38 | CP.PCM.PN ---
Subjective - Date & Time of Evaluation Date of Evaluation: 09/23/18 Time of Evaluation: 07:00 - Subjective Subjective: Patient seen and examined, No acute event overnight. Patient would like to go out to walk, otherwise he is good. Objective - Vital Signs/Intake and Output Vital Signs (last 24 hours): Temp Pulse Resp BP Pulse Ox 98.2 F 80 18 151/82 H 95 09/23/18 00:09 09/23/18 00:09 09/23/18 00:09 09/23/18 00:09 09/23/18 00:09 - Medications Medications: Current Medications Acetaminophen (Tylenol 325mg Tab) 650 mg PO Q6 PRN PRN Reason: for breakthrough pain moderate Last Admin: 09/22/18 22:44 Dose: 650 mg Amlodipine Besylate (Norvasc) 5 mg PO DAILY [facility] Last Admin: 09/22/18 08:46 Dose: 5 mg Docusate Sodium (Colace) 100 mg PO BID [facility] Last Admin: 09/22/18 16:37 Dose: Not Given Enoxaparin Sodium (Lovenox) 40 mg SC DAILY [facility]; Protocol Last Admin: 09/21/18 09:09 Dose: 40 mg Piperacillin Sod/Tazobactam (Sod 3.375 gm/ Sodium Chloride) 100 mls @ 100 mls/hr IVPB Q8 [facility]; Protocol Last Admin: 09/23/18 01:05 Dose: 100 mls/hr Vancomycin HCl 1,500 mg/ (Sodium Chloride) 500 mls @ 333.333 mls/hr IVPB DAILY [facility]; Protocol Ketorolac Tromethamine (Toradol) 15 mg IVP Q6 PRN PRN Reason: Pain, severe (8-10) Last Admin: 09/23/18 02:20 Dose: 15 mg Lactic Acid (Lac-Hydrin 12% Cream (140 G)) 1 ea TOP BID PRN PRN Reason: Dry skin Last Admin: 09/10/18 09:01 Dose: 1 ea Levothyroxine Sodium (Synthroid) 200 mcg PO DAILY@0630 [facility] Last Admin: 09/23/18 05:30 Dose: 200 mcg Lidocaine (Lidoderm) 1 ea TD DAILY [facility] Last Admin: 09/22/18 08:45 Dose: 1 ea Tramadol HCl (Ultram) 50 mg PO Q4 PRN PRN Reason: Pain, moderate (4-7) Last Admin: 09/21/18 18:35 Dose: 50 mg Trazodone HCl (Desyrel) 100 mg PO HS [facility] Last Admin: 09/22/18 21:13 Dose: 100 mg - Labs Labs: 09/22/18 04:00 09/22/18 04:00 - Constitutional Appears: Well, Non-toxic, No Acute Distress - Head Exam Head Exam: ATRAUMATIC, NORMAL INSPECTION, NORMOCEPHALIC - Eye Exam Eye Exam: EOMI, Normal appearance, PERRL Pupil Exam: NORMAL ACCOMODATION, PERRL - ENT Exam ENT Exam: Mucous Membranes Moist, Normal Exam - Neck Exam Neck Exam: Full ROM, Normal Inspection - Respiratory Exam Respiratory Exam: Clear to Ausculation Bilateral, NORMAL BREATHING PATTERN - Cardiovascular Exam Cardiovascular Exam: REGULAR RHYTHM, +S1, +S2 - GI/Abdominal Exam GI & Abdominal Exam: Soft, Normal Bowel Sounds - Extremities Exam Extremities Exam: Full ROM, Normal Capillary Refill, Normal Inspection - Neurological Exam Neurological Exam: Alert, Awake, CN II-XII Intact, Oriented x3 - Psychiatric Exam Psychiatric exam: Normal Affect, Normal Mood - Skin Skin Exam: Dry, Intact, Normal Color, Warm Assessment and Plan - Assessment and Plan (Free Text) Assessment: 42 yo male with PMh of IVDA presented with lower back and bilateral hip pain. MRI showed osteomyelitis/discitis L1-L2 and possible L2-L3 ID consulted and started on IV Vanco and Zosyn Cultures with no growth so far Echo showed no vegetations As per ID patient will need 6-8 weeks of IV antibiotics Pain is better controlled . On Vancomycin 1.5 gm QD (day 25) & zosyn 3.375 Q8 (day 27) Will restart vanco today at 5Pm Will do a vanco trought at 4PM 1. Lumbar spine OM/discitis Continue IV antibiotics for 6-8 weeks PICC line placed Unable to discharge since patient has history IVDA and no insurance On vanco and zosyn 2. DREA improved with hydration continue hydration and monitoring renal fxn on Vanco to 1 g QD on hold 3. Hypothyroidism Improving TSH 4.75, Prev 35.7 Synthroid to 175 mcg QD 4. Lower back pain improved Placed lidoderm patch Continue Tramadol , Toradol and Tylenol PRN Avoid narcotics 5. Chronic Thrombocytopenia unclear etiology stable 6. Hepatitis C viral load undetectable 7. IVDA 8. Hypertension Improving DVT prophylaxis Hold Lovenox due to drop in plt
[2018-09-23] MEDS: Lidocaine 5% Patch TD SCH (08:26)
[2018-09-23 12:36] LABS: BASO % 0.8 % (0.0-2.0); EOS # 0.2 K/uL (0.0-0.7); EOS % 2.7 % (0.0-4.0); HEMOGLOBIN 12.1 g/dL (12.0-18.0); LYMPH # 0.9 K/uL (1.0-4.3); LYMPH % 15.9 % (20.0-40.0); MEAN CELL VOLUME 87.7 fl (80.0-94.0); MEAN CORPUSCULAR HEMOGLOBIN 30.9 pg (27.0-31.0); MEAN CORPUSCULAR HGB CONC 35.3 g/dL (33.0-37.0); MEAN PLATELET VOLUME 7.6 fl (7.2-11.7); MONO # 0.5 K/uL (0.0-0.8); MONO % 9.5 % (0.0-10.0); NEUT % 71.1 % (50.0-75.0); RBC 3.89 Mil/uL (4.40-5.90); RED CELL DISTRIBUTION WIDTH 14.7 % (11.5-14.5); WHITE BLOOD COUNT 5.6 K/uL (4.8-10.8)
[2018-09-23 12:38] LABS: ALB/GLOB RATIO 0.8 (1.0-2.1); ALBUMIN 3.9 g/dL (3.5-5.0); ALT/SGPT 33 U/L (21-72); AST/SGOT 62 U/L (17-59); BLOOD UREA NITROGEN 17 mg/dl (9-20); CALCIUM 9.1 mg/dL (8.4-10.2); GFR NON-AFRICAN AMERICAN > 60
[2018-09-24 00:09] VITALS: O2SAT 97
[2018-09-24] MEDS: Piperacillin/Tazobact 3.375 GM in Sodium Chloride 0.9% 100 ML IVPB SCH ×2 (00:17→08:38)
[2018-09-24] MEDS: Levothyroxine 200 MCG TAB PO SCH (06:11)
[2018-09-24 07:40] VITALS: BP 140/88; PULSE 73; RESP 20; TEMP 98.5
[2018-09-24] MEDS: Lidocaine 5% Patch TD SCH (08:57)
--- NOTE | 2018-09-24 13:54 | CP.PCM.PCO ---
Against Medical Advice - AMA Patient Left Against Medical Advice: The patient declines continued admission to hospital. States he has family emergency. This action is against my medical advice. This decision was made with informed refusal. The patient was told that admission to the hospital is necessary for these reasons. Explanation of the reasons why were discussed. The risks of leaving were explained to the patient and include, but are not limited to, worsening of known or currently unknown conditions, permanent disability and from undiagnosed or untreated conditions. Pt informed that his infection requires IV antibiotics and deferring treatment may lead to worsening infection,causing sepsis and possibly and spinal cord malfunction (paralysis). The patient has the capacity to make this informed decision and understands my explanation of the current medical problem and risks of leaving. The patient voluntarily accepts these risks and signed an AMA form documenting our conversation. The patient was given the opportunity to ask questions and reconsider. The patient was encouraged to return to the Emergency Department at any time for further care. Oral antibiotics were prescribed for patient. PICC line removed at bedside at 1350hr. No bleeding noted. Kaylah Nowak pGY2
--- NOTE | 2018-09-24 15:08 | CP.PCM.DIS ---
Provider - Provider Date of Admission: 08/28/18 20:13 Attending physician: Jarrod Corrales MD Consults: 08/28/18 19:51 Neuro Surgery Consult Stat Comment: Consulting Provider: Paco Lang Consulting Physician: Paco Lang Reason for Consult: acute discitis; IVDA 08/29/18 05:40 Social Work Referral Routine Comment: protocol Physician Instructions: Reason For Exam: substance abuse 08/29/18 08:28 Infectious Disease Consult Routine Comment: Consulting Provider: Pepe Schrader Consulting Physician: Pepe Schrader Reason for Consult: Lumbar diskitis hx of IVDA Time Spent in preparation of Discharge (in minutes): 20 Hospital Course - Lab Results Lab Results: Micro Results 08/28/18 18:46 Blood-Venous Blood Culture - Final NO GROWTH AFTER 5 DAYS 08/28/18 18:46 Blood-Venous Gram Stain - Final TEST NOT PERFORMED 08/28/18 18:00 Blood-Venous Blood Culture - Final NO GROWTH AFTER 5 DAYS 08/28/18 18:00 Blood-Venous Gram Stain - Final TEST NOT PERFORMED Most Recent Lab Values WBC 5.6 K/uL (4.8-10.8) 09/23/18 12:00 RBC 3.89 Mil/uL (4.40-5.90) L 09/23/18 12:00 Hgb 12.1 g/dL (12.0-18.0) 09/23/18 12:00 Hct 34.2 % (35.0-51.0) L 09/23/18 12:00 MCV 87.7 fl (80.0-94.0) 09/23/18 12:00 MCH 30.9 pg (27.0-31.0) 09/23/18 12:00 MCHC 35.3 g/dL (33.0-37.0) 09/23/18 12:00 RDW 14.7 % (11.5-14.5) H 09/23/18 12:00 Plt Count 107 K/uL (130-400) L 09/23/18 12:00 MPV 7.6 fl (7.2-11.7) 09/23/18 12:00 Neut % (Auto) 71.1 % (50.0-75.0) 09/23/18 12:00 Lymph % (Auto) 15.9 % (20.0-40.0) L 09/23/18 12:00 [place] % (Auto) 9.5 % (0.0-10.0) 09/23/18 12:00 Eos % (Auto) 2.7 % (0.0-4.0) 09/23/18 12:00 Baso % (Auto) 0.8 % (0.0-2.0) 09/23/18 12:00 Neut # (Auto) 4.0 K/uL (1.8-7.0) 09/23/18 12:00 Lymph # (Auto) 0.9 K/uL (1.0-4.3) L 09/23/18 12:00 [place] # (Auto) 0.5 K/uL (0.0-0.8) 09/23/18 12:00 Eos # (Auto) 0.2 K/uL (0.0-0.7) 09/23/18 12:00 Baso # (Auto) 0.0 K/uL (0.0-0.2) 09/23/18 12:00 ESR 89 mm/hr (0-15) H 09/05/18 06:00 Sodium 140 mmol/l (132-148) 09/23/18 12:00 Potassium 4.2 MMOL/L (3.6-5.0) 09/23/18 12:00 Chloride 105 mmol/L (98-107) 09/23/18 12:00 Carbon Dioxide 26 mmol/L (22-30) 09/23/18 12:00 Anion Gap 13 (10-20) 09/23/18 12:00 BUN 17 mg/dl (9-20) 09/23/18 12:00 Creatinine 1.2 mg/dl (0.8-1.5) 09/23/18 12:00 Est GFR ( Amer) > 60 09/23/18 12:00 Est GFR (Non-Af Amer) > 60 09/23/18 12:00 Random Glucose 97 mg/dL (75-110) 09/23/18 12:00 Calcium 9.1 mg/dL (8.4-10.2) 09/23/18 12:00 Total Bilirubin 1.3 mg/dl (0.2-1.3) 09/23/18 12:00 AST 62 U/L (17-59) H 09/23/18 12:00 ALT 33 U/L (21-72) 09/23/18 12:00 Alkaline Phosphatase 214 U/L (38-126) H 09/23/18 12:00 Total Protein 9.0 G/DL (6.3-8.2) H 09/23/18 12:00 Albumin 3.9 g/dL (3.5-5.0) 09/23/18 12:00 Globulin 5.1 gm/dL (2.2-3.9) H 09/23/18 12:00 Albumin/Globulin Ratio 0.8 (1.0-2.1) L 09/23/18 12:00 TSH 3rd Generation 4.75 mIU/ML (0.46-4.68) H 09/20/18 06:30 Urine Color Yellow (YELLOW) 08/28/18 18:00 Urine Clarity Clear (Clear) 08/28/18 18:00 Urine pH 6.0 (5.0-8.0) 08/28/18 18:00 Ur Specific [place] 1.025 (1.003-1.030) 08/28/18 18:00 Urine Protein Negative mg/dL (NEGATIVE) 08/28/18 18:00 Urine Glucose (UA) Neg mg/dL (NEGATIVE) 08/28/18 18:00 Urine Ketones Negative mg/dL (NEGATIVE) 08/28/18 18:00 Urine Blood Negative (NEGATIVE) 08/28/18 18:00 Urine Nitrate Negative (NEGATIVE) 08/28/18 18:00 Urine Bilirubin Negative (NEGATIVE) 08/28/18 18:00 Urine Urobilinogen 0.2-1.0 mg/dL (0.2-1.0) 08/28/18 18:00 Ur Leukocyte Esterase Neg Melanie/uL (Negative) 08/28/18 18:00 Urine RBC (Auto) 3 /hpf (0-3) 08/28/18 18:00 Vancomycin Trough 6.1 ug/mL (5.0-10.0) 09/23/18 16:25 Urine Opiates Screen Positive (NEGATIVE) H 09/03/18 21:40 Urine Methadone Screen Negative (NEGATIVE) 09/03/18 21:40 Ur Barbiturates Screen Negative (NEGATIVE) 09/03/18 21:40 Ur Phencyclidine Scrn Negative (NEGATIVE) 09/03/18 21:40 Ur Amphetamines Screen Negative (NEGATIVE) 09/03/18 21:40 U Benzodiazepines Scrn Negative (NEGATIVE) 09/03/18 21:40 U Oth Cocaine Metabols Negative (NEGATIVE) 09/03/18 21:40 U Cannabinoids Screen Negative (NEGATIVE) 09/03/18 21:40 Hepatitis A IgM Ab Negative (NEGATIVE) 08/31/18 06:05 Hep Bs Antigen Negative (NEGATIVE) 08/31/18 06:05 Hep B Core IgM Ab Negative (NEGATIVE) 08/31/18 06:05 Hepatitis C Antibody Reactive (NEGATIVE) 08/31/18 06:05 HCV RNA Qual (TMA) Not detected 08/31/18 17:00 HIV-1 Ab Rapid Screen Non reactive (NON REAC) 08/28/18 22:25 TB Test (QFT) Nil 0.03 IU/mL 09/02/18 09:30 TB Test Mitogen - Nil 0.74 IU/mL 09/02/18 09:30 TB Test Antigen - Nil 0.00 IU/mL 09/02/18 09:30 TB Test TB - Nil 0.00 IU/mL 09/02/18 09:30 TB Test (QFT) Negative (Negative) 09/02/18 09:30 - Hospital Course Hospital Course: 42 y/o M with PMH IVDA presented with lower back and bilateral hip pain .MRI showed osteomyelitis/discitis L1-L2 and possible L2-L3 and he was started on IV antibiotics Vanco and Zosyn. As per ID patient will need 6-8 weeks of IV Vanco and Zosyn Today patient decided to leave hospital AMA .He received almost 4 weeks of IV antibiotisc with improvement of his pain Patient was informed that the recommended duration of treatment for osteomyelitis is 6-8 weeks witH IV antibiotics and if such treatment is interrupted and not finished in full he will risk worsening of his condition that might lead to him being paralyzed. Patient is AAOx3 and understands all risks HJe will sign himself AMA. Will give prescription ]for Po bactrim DS 1 tab PO BID and Doxycycliner 100 mg PO BID for 4 more weeks Advised to return to hospital if his condition worsens 1. Lumbar spine OM/discitis 2. DREA improved with hydration 3. Hypothyroidism uncontrolled On Synthroid 200 mcg QD 4. Chronic Thrombocytopenia unclear etiology 5. Hepatitis C viral load undetectable 6. IVDA 7. Hypertension -labile on Norvasc 5 mg po QD Discharge Exam - Head Exam Head Exam: ATRAUMATIC, NORMAL INSPECTION, NORMOCEPHALIC - Eye Exam Eye Exam: PERRL Pupil Exam: NORMAL ACCOMODATION - ENT Exam ENT Exam: Mucous Membranes Moist, Normal Exam - Neck Exam Neck exam: Full Rom, Normal Inspection - Respiratory Exam Respiratory Exam: Clear to PA & Lateral, NORMAL BREATHING PATTERN. absent: Rhonchi, Wheezes - Cardiovascular Exam Cardiovascular Exam: REGULAR RHYTHM, RRR, +S1, +S2. absent: JVD - GI/Abdominal Exam GI & Abdominal Exam: Normal Bowel Sounds, Soft. absent: Distended, Guarding, Rebound, Tenderness - Rectal Exam Rectal Exam: Deferred - Extremities Exam Extremities exam: normal capillary refill, normal inspection, pedal pulses present - Back Exam Back exam: NORMAL INSPECTION - Neurological Exam Neurological exam: Alert, CN II-XII Intact, Oriented x3, Reflexes Normal - Psychiatric Exam Psychiatric exam: Normal Affect, Normal Mood - Skin Skin Exam: Dry, Intact, Normal Color, Warm Discharge Plan - Discharge Medications Prescriptions: amLODIPine [Norvasc] 5 mg PO DAILY #30 tab Doxycycline Hyclate 100 mg PO Q12 #56 capsule Levothyroxine [Synthroid] 200 mcg PO DAILY@0630 #30 tab Sulfamethoxazole/Trimethoprim [Bactrim DS 800 mg-160 mg] 1 tab PO Q12 #56 tab traZODone [Desyrel] 100 mg PO HS #30 tab - Follow Up Plan Condition: FAIR Disposition: AGAINST MEDICAL ADVICE Instructions: Low Back Pain (DC) Additional Instructions: follow up with primary md 1 week Referrals: Paco Lang MD [Staff Provider] - Fly Franklin MD [Medical Doctor] - Pepe Schrader MD [Staff Provider] -
== END 2018-09-24 14:20 | disposition left against medical advice (07) | DRG 344 ==
LOC: H.ER 14:01 → H.ERHOLD 20:13 → H.MEDSURG1 22:55
PROC: 3E0234Z Introduction of Serum, Toxoid and Vaccine into Muscle, Percutaneous Approach (ICD-10-PCS; 2018-08-29)
PROC: 02HV33Z Insertion of Infusion Device into Superior Vena Cava, Percutaneous Approach (ICD-10-PCS; principal; 2018-08-31)
PROC: B518ZZA Fluoroscopy of Superior Vena Cava, Guidance (ICD-10-PCS; 2018-08-31)
PROC: B548ZZA Ultrasonography of Superior Vena Cava, Guidance (ICD-10-PCS; 2018-08-31)
PROC: 3E04329 Introduction of Other Anti-infective into Central Vein, Percutaneous Approach (ICD-10-PCS; 2018-08-31)
DX: M46.26 Osteomyelitis of vertebra, lumbar region (principal); N17.9 Acute kidney failure, unspecified; D69.59 Other secondary thrombocytopenia; M46.46 Discitis, unspecified, lumbar region; M43.16 Spondylolisthesis, lumbar region; M48.061 Spinal stenosis, lumbar region without neurogenic claudication; B18.2 Chronic viral hepatitis C; F11.10 Opioid abuse, uncomplicated; K76.89 Other specified diseases of liver; T36.8X5A Adverse effect of other systemic antibiotics, initial encounter; T39.395A Adverse effect of other nonsteroidal anti-inflammatory drugs [NSAID], initial encounter; E03.9 Hypothyroidism, unspecified; I10 Essential (primary) hypertension; G47.00 Insomnia, unspecified; F41.9 Anxiety disorder, unspecified; K42.9 Umbilical hernia without obstruction or gangrene; F17.210 Nicotine dependence, cigarettes, uncomplicated; Z23 Encounter for immunization